=== PATIENT | female | born 1970 | race Caucasian/White ===

== ENCOUNTER 2016-06-14 21:09 | Observation (INO) | payer SELFPAY ==
[~2016-06-14] VITALS: Ht 165.1 cm; Wt 105.0 kg
[~2016-06-14 21:09] MED LIST: ALBU17I INH; ASPI-94 PO; BUME1TAB PO; IRON325T; LANTINJ SC; LISI2.5T3 PO; METF1000 PO; METO25 PO; POTA-243 PO; PRAV40TA2 PO; ROSU40 PO; [UNRECOGNIZED DRUG - OTHER]
[2016-06-14 21:11] VITALS: BP 230/94; PULSE 74; RESP 16; TEMP 98.2; O2SAT 100
[2016-06-14 22:42] VITALS: BP 216/85; PULSE 76; RESP 18; O2SAT 100
[2016-06-14] MEDS ORDERED: ASPIRIN 81 MG CHEW TAB PO ONE (23:00)
[2016-06-14] MEDS: LABETALOL HCL 100 MG/20 ML VIAL IV PUSH ONE ×2 (23:00→23:08)
[2016-06-14] MEDS ORDERED: SODIUM CHLORIDE 0.9% FLUSH 5 ML FLUSH IVF PRN (23:00)
[2016-06-14] MEDS ORDERED: MECLIZINE HCL 25 MG TAB PO ONE (23:00)
[2016-06-14 23:09] VITALS: BP 155/65; PULSE 70; RESP 18; O2SAT 98
[2016-06-14 23:13] VITALS: BP 169/79; PULSE 71; RESP 18; O2SAT 99
[2016-06-14 23:20] LABS: AUTOMATED NEUTROPHIL # 12.9 TH/MM3 (1.8-7.7); BASOPHIL % 0.2 % (0.0-2.0); EOSINOPHIL % 0.2 % (0.0-4.0); HEMATOCRIT 36.6 % (35.0-46.0); HEMO FLAGS DIFF FINAL; LYMPH % 17.3 % (9.0-44.0); LYMPHOCYTE # 2.9 TH/MM3 (1.0-4.8); MEAN CORPUSCULAR HEMOGLOBIN 28.3 PG (27.0-34.0); MEAN CORPUSCULAR HGB CONC 33.7 % (32.0-36.0); MONO % 6.3 % (0.0-8.0); PLATELET COUNT 379 TH/MM3 (150-450); RED BLOOD COUNT 4.36 MIL/MM3 (4.00-5.30); RED CELL DISTRIBUTION WIDTH 13.7 % (11.6-17.2)
[2016-06-14] MEDS ORDERED: METO25TA3 PO (23:29)
[2016-06-14] MEDS ORDERED: LISI2.5T3 PO (23:29)
[2016-06-14] MEDS ORDERED: JANU50TA8 PO (23:29)
[2016-06-14] MEDS ORDERED: PRAV40TA2 PO (23:29)
[2016-06-14] MEDS ORDERED: GLIP5TAB8 PO (23:29)
[2016-06-14] MEDS ORDERED: ASPI81CH CHEW (23:29)
[2016-06-14] MEDS ORDERED: ASPI325T PO (23:29)
--- NOTE | 2016-06-14 23:29 | RADRPT ---
EXAM DATE/TIME: 06/14/2016 23:04 [facility] COMPARISON: CHEST SINGLE AP, November 02, 2013, 19:14. INDICATIONS : Chest Pain, Rapid heart beat MEDICAL HISTORY : CardioMyopathy SURGICAL HISTORY : CABG. ENCOUNTER: Initial ACUITY: 1 day PAIN SCORE: 2/10 LOCATION: Bilateral chest FINDINGS: PA and lateral views of the chest demonstrate the lungs to be symmetrically aerated without evidence of mass, infiltrate or effusion. The cardiomediastinal contours are unremarkable. Osseous structure s are intact. Patient has had previous median sternotomy and CABG. CONCLUSION: No evidence of acute cardiopulmonary disease. Aleksander Lynch MD on June 14, 2016 at 23:27 Board Certified Radiologist. This report was verified electronically.
[2016-06-14] MEDS ORDERED: VENL100T PO (23:30)
[2016-06-14] MEDS ORDERED: LURA80 PO (23:30)
[2016-06-14 23:33] LABS: APTT (PATIENT) 27.8 SEC (24.3-30.1); INTERNATIONAL NORMALIZED RATIO 0.9 RATIO; PROTHROMBIN TIME - PATIENT 10.1 SEC (9.8-11.6)
[2016-06-14 23:41] LABS: ALKALINE PHOSPHATASE 91 U/L (45-117); CREATINE KINASE 118 U/L (26-192); TOTAL BILIRUBIN ADULT 0.6 MG/DL (0.2-1.0)
--- NOTE | 2016-06-14 23:41 | RADRPT ---
EXAM DATE/TIME: 06/14/2016 23:18 [facility] COMPARISON: No previous studies available for comparison. INDICATIONS : Dizziness. RADIATION DOSE: 43.58 CTDIvol (mGy) MEDICAL HISTORY : Hypertension. Myocardial infarction. Congestive heart failure. Coronary artery disease. SURGICAL HISTORY : CABG Tubal ligation. ENCOUNTER: Initial ACUITY: 2 days PAIN SCALE: 0/10 LOCATION: cranial TECHNIQUE: Multiple contiguous axial images were obtained of the head. Using automated exposure control and adj ustment of the mA and/or kV according to patient size, radiation dose was kept as low as reasonably a chievable to obtain optimal diagnostic quality images. FINDINGS: CEREBRUM: The ventricles are normal for age. No evidence of midline shift, mass lesion, hemorrhage or acute in farction. No extra-axial fluid collections are seen. POSTERIOR FOSSA: The cerebellum and brainstem are intact. The 4th ventricle is midline. The cerebellopontine angle i s unremarkable. EXTRACRANIAL: The visualized portion of the orbits is intact. SKULL: The calvaria is intact. No evidence of skull fracture. CONCLUSION: Negative noncontrast head CT. Aleksander Lynch MD on June 14, 2016 at 23:39 Board Certified Radiologist. This report was verified electronically.
[2016-06-14 23:49] LABS: ALT (GPT) 27 U/L (10-53); ANION GAP 12 MEQ/L (5-15); AST (GOT) 20 U/L (15-37); BICARBONATE 25.6 MEQ/L (21.0-32.0); BLOOD UREA NITROGEN 13 MG/DL (7-18); CHLORIDE 88 MEQ/L (98-107); GLOMERULAR FILTRATION RATE 56 ML/MIN (>89); MAGNESIUM 1.7 MG/DL (1.5-2.5); SODIUM (NA) 126 MEQ/L (136-145)
[2016-06-14 23:53] LABS: CKMB 1.6 NG/ML (0.5-3.6)
[2016-06-15] VITALS (7 sets, daily range): BP systolic 112–151; BP diastolic 61–76; PULSE 71–89; RESP 16–20; TEMP 98–98.4; O2SAT 97–100
[2016-06-15 01:25] LABS: BACTERIA, URINE RARE /hpf; BLOOD, URINE NEG (NEG); COMMENT (UR) CULT NOT INDICATED; CULTURE IF INDICATED CULT NOT INDICATED; GLUCOSE,URINE 1000 mg/dL (NEG); KETONE, URINE NEG (NEG); NITRITE,URINE NEG (NEG); PH, URINE 5.5 (5.0-8.5); SQUAMOUS EPITHELIAL CELL URINE 4 /hpf (0-5); URINE COLOR COLORLESS (YELLW/STRAW)
--- NOTE | 2016-06-15 01:43 | PD ---
HPI Chief Complaint: Chest Pain Time Seen by Provider: 22:32 Travel History International Travel<30 days: No Contact w/Intl Traveler<30days: No Traveled to known affect area: No History of Present Illness HPI Patient is a 46 year old female with extensive cardiac history, who comes in complaining of chest pain that radiates to her jaw. She also says she has had a few days of dizziness when she stands up. She says this is how she felt when she had a UT in the past. She says the pain goes across her chest and up to her jaw and down her left arm. She has had some SOB with this. She denies nausea or vomiting. She denies fever or chills. PFSH Past Medical History Arthritis: Yes ("in my back") Blood Disorders: No Anxiety: Yes Depression: No Heart Rhythm Problems: No Cancer: No Cardiac Catheterization: Yes Cardiovascular Problems: Yes (UT, CABGX3, HTN) High Cholesterol: Yes Chest Pain: Yes Congestive Heart Failure: Yes Cerebrovascular Accident: No Coronary Artery Disease: Yes Diabetes: Yes Patient Takes Glucophage: Yes (GENUMET 06/14/161999) Diminished Hearing: No Endocrine: Yes Gastrointestinal Disorders: Yes GERD: Yes Genitourinary: Yes Headaches: Yes Hiatal Hernia: No Hypertension: Yes Immune Disorder: No Implanted Vascular Access Dvce: Yes Kidney Stones: Yes (2000) Musculoskeletal: Yes Neurologic: No Psychiatric: Yes (PTSD) Reproductive: No Respiratory: Yes (C PAP) Migraines: No Myocardial Infarction: Yes Thyroid Disease: No Triglycerides - High: Yes Ulcer: No Tetanus Vaccination: > 5 Years ?: Not LMP: 06/04/16 Tubal Ligation: Yes (1991) Past Surgical History Body Medical Devices: "STENT IN MY HEART" Cardiac Surgery: Yes (two heart caths) Coronary Artery Bypass Graft: Yes (CABG X 3 IN 2013) Eye Surgery: Yes (LASER SURGERY ON EYES) Family History Family Myocardial Infarction: Yes Social History Alcohol Use: Yes (RARE) Tobacco Use: No (QUIT APR 2013) Substance Use: No Allergies-Medications (Allergen,Severity, Reaction): Coded Allergies: Lexapro (Verified Allergy, Severe, 06/14/16) pt " states it makes me rip my skin out" Morphine (Verified Allergy, Severe, "MAKES ME WANT TO RIP MY SKIN OFF", 03/20) Phenergan (Verified Allergy, Severe, "MAKES ME WANT TO RIP MY SKIN OFF", ) Reported Meds & Prescriptions Reported Meds & Active Scripts Active Reported Effexor (Venlafaxine HCl) 100 Mg Tab 225 Mg PO DAILY Latuda (Lurasidone) 80 Mg Tab 80 Mg PO HS Glipizide 5 Mg Tab 5 Mg PO BIDAC Take 30 minutes before a meal Janumet (Sitagliptin-Metformin) 50-1,000 Mg Tab 1 Tab PO BID Pravastatin 40 Mg Tab 40 Mg PO HS Metoprolol Tartrate 25 Mg Tab 25 Mg PO BID Lisinopril 2.5 Mg Tab 2.5 Mg PO DAILY Aspirin 325 Mg Tab 325 Mg PO DAILY Aspirin 81 Mg Chew 324 Mg CHEW DAILY Review of Systems Except as stated in HPI: all other systems reviewed are Neg General / Constitutional: No: Fever, Chills Eyes: No: Blurred Vision HENT: Positive: Vertigo, Lightheadedness Cardiovascular: Positive: Chest Pain or Discomfort Respiratory: Positive: Shortness of Breath Gastrointestinal: No: Nausea, Vomiting Musculoskeletal: No: Edema, Pain Skin: No Rash, No Change in Pigmentation Neurologic: Positive: Dizziness Physical Exam Narrative GENERAL: Awake and alert, in no acute distress SKIN: Warm and dry. HEAD: Atraumatic. Normocephalic. EYES: Pupils equal and round. No scleral icterus. EOMI. horizontal, extinguishing nystagmus. ENT: Mucous membranes pink and moist. NECK: Trachea midline. No JVD. CARDIOVASCULAR: Regular rate and rhythm. No murmur appreciated. RESPIRATORY: No accessory muscle use. Clear to auscultation. Breath sounds equal bilaterally. GASTROINTESTINAL: Abdomen soft, non-tender, nondistended. MUSCULOSKELETAL: No obvious deformities. No clubbing. No cyanosis. No edema. NEUROLOGICAL: Awake and alert. No obvious cranial nerve deficits. Motor grossly within normal limits. Normal speech. Normal [id number] testing. PSYCHIATRIC: Appropriate mood and affect; insight and judgment normal. Data Data Last Documented VS Vital Signs Date Time Temp Pulse Resp B/P Pulse Ox O2 Delivery O2 Flow Rate FiO2 06/15/16 01:00 71 18 143/68 99 Room Air 06/14/16 21:11 Orders B-Type Natriuretic Peptide (06/14/16 22:46) Ckmb (Isoenzyme) Profile (06/14/16 22:46) Complete Blood Count With Diff (06/14/16 22:46) Comprehensive Metabolic Panel (06/14/16 22:46) Magnesium (Mg) (06/14/16 22:46) Prothrombin Time / Inr (Pt) (06/14/16 22:46) Act Partial Throm Time (Ptt) (06/14/16 22:46) Troponin I (06/14/16 22:46) Ecg Monitoring (06/14/16 22:46) Bilateral Bp Monitoring (06/14/16 22:46) Iv Access Insert/Monitor (06/14/16 22:46) Oximetry (06/14/16 22:46) Aspirin Chew (Aspirin Chew) (06/14/16 23:00) Sodium Chloride 0.9% Flush (Ns Flush) (06/14/16 23:00) Chest, Pa & Lat (06/14/16 22:46) Ct Brain W/O Iv Contrast(Rout) (06/14/16 ) Meclizine (Antivert) (06/14/16 23:00) Labetalol Inj (Trandate Inj) (06/14/16 23:00) Ed Urine Pregnancytest Poc (06/14/16 22:48) CKMB (06/14/16 23:01) CKMB% (06/14/16 23:01) Urinalysis - C+S If Indicated (06/15/16 00:53) Activity Bed Rest With Brp (06/15/16 01:43) Vital Signs (Adult) Q4H (06/15/16 01:43) Cardiac Rhythm .As Directed (06/15/16 01:43) ^ Notify Dr: Other .PRN (06/15/16 01:43) ^ Notify Dr. Parameters (06/15/16 01:43) Resp Oxygen Nasal Cannula (06/15/16 ) Diet Heart Healthy (06/15/16 Breakfast) Ckmb (Isoenzyme) Profile (06/15/16 02:01) Ckmb (Isoenzyme) Profile (06/15/16 05:01) Troponin I (06/15/16 02:01) Troponin I (06/15/16 05:01) Electrocardiogram (06/15/16 02:01) Electrocardiogram (06/15/16 05:01) ^ Obtain (06/15/16 01:43) Sodium Chloride 0.9% Flush (Ns Flush) (06/15/16 01:45) Sodium Chloride 0.9% Flush (Ns Flush) (06/15/16 09:00) Medical Lead / Telemetry HANNA.Q8H (06/15/16 01:43) Admit Order (Ed Use Only) (06/15/16 ) CKMB (06/15/16 03:25) CKMB% (06/15/16 03:25) Labs Laboratory Tests Test 06/14/16 06/15/16 23:01 01:10 White Blood Count 17.0 TH/MM3 Red Blood Count 4.36 MIL/MM3 Hemoglobin 12.3 GM/DL Hematocrit 36.6 % Mean Corpuscular Volume 84.0 FL Mean Corpuscular Hemoglobin 28.3 PG Mean Corpuscular Hemoglobin 33.7 % Concent Red Cell Distribution Width 13.7 % Platelet Count 379 TH/MM3 Mean Platelet Volume 9.7 FL Neutrophils (%) (Auto) 76.0 % Lymphocytes (%) (Auto) 17.3 % Monocytes (%) (Auto) 6.3 % Eosinophils (%) (Auto) 0.2 % Basophils (%) (Auto) 0.2 % Neutrophils # (Auto) 12.9 TH/MM3 Lymphocytes # (Auto) 2.9 TH/MM3 Monocytes # (Auto) 1.1 TH/MM3 Eosinophils # (Auto) 0.0 TH/MM3 Basophils # (Auto) 0.0 TH/MM3 CBC Comment DIFF FINAL Differential Comment Prothrombin Time 10.1 SEC Prothromb Time International 0.9 RATIO Ratio Activated Partial 27.8 SEC Thromboplast Time Sodium Level 126 MEQ/L Potassium Level 4.0 MEQ/L Chloride Level 88 MEQ/L Carbon Dioxide Level 25.6 MEQ/L Anion Gap 12 MEQ/L Blood Urea Nitrogen 13 MG/DL Creatinine 1.05 MG/DL Estimat Glomerular Filtration 56 ML/MIN Rate Random Glucose 259 MG/DL Calcium Level 9.0 MG/DL Magnesium Level 1.7 MG/DL Total Bilirubin 0.6 MG/DL Aspartate Amino Transf 20 U/L (AST/SGOT) Alanine Aminotransferase 27 U/L (ALT/SGPT) Alkaline Phosphatase 91 U/L Total Creatine Kinase 118 U/L Creatine Kinase MB 1.6 NG/ML Troponin I LESS THAN 0.02 NG/ML B-Type Natriuretic Peptide 89 PG/ML Total Protein 8.1 GM/DL Albumin 3.6 GM/DL Urine Color COLORLESS Urine Turbidity HAZY Urine pH 5.5 Urine Specific [place] 1.006 Urine Protein TRACE mg/dL Urine Glucose (UA) 1000 mg/dL Urine Ketones NEG mg/dL Urine Occult Blood NEG Urine Nitrite NEG Urine Bilirubin NEG Urine Urobilinogen LESS THAN 2.0 MG/DL Urine Leukocyte Esterase SMALL Urine RBC 1 /hpf Urine WBC 3 /hpf Urine Squamous Epithelial 4 /hpf Cells Urine Bacteria RARE /hpf Microscopic Urinalysis Comment CULT NOT INDICATED MDM Medical Decision Making Medical Screen Exam Complete: Yes Emergency Medical Condition: Yes Medical Record Reviewed: Yes Interpretation(s) ECG shows NSR, no ST elevation or depression. Differential Diagnosis ACS vs NSTEMI vs STEMI vs vertigo Narrative Course Patient is a 46 year old female who comes in complaining of chest pain along with dizziness. Exam shows no neurologic abnormalities. ECG shows no signs of ischemia. IV established, patient connected to the classroom monitor. Labs sent show no acute abnormalities. WBC count is elevated to 17, however patient is not having infectious symptoms currently. Patient given Aspirin. CXR shows no signs of pneumonia. Patient given Meclizine with improvement of her dizziness. Placed in chest pain center for further management. Diagnosis Primary Impression: Chest pain Qualified Code: R07.9 - Chest pain, unspecified type Admitting Information Admitting Physician Requests: Mitra Louis MD Jun 15, 2016 01:43
[2016-06-15] MEDS ORDERED: SODIUM CHLORIDE 0.9% FLUSH 5 ML FLUSH IVF PRN (01:45)
[2016-06-15 02:57] LABS: CREATINE KINASE 94 U/L (26-192)
[2016-06-15 04:05] LABS: CREATINE KINASE 102 U/L (26-192)
[2016-06-15 04:25] LABS: CKMB 1.2 NG/ML (0.5-3.6)
[2016-06-15] MEDS ORDERED: ACETAMINOPHEN 325 MG TAB PO ONE (05:00)
[2016-06-15] MEDS ORDERED: METOPROLOL TARTRATE 25 MG TAB PO SCH (09:00)
[2016-06-15] MEDS ORDERED: SODIUM CHLORIDE 0.9% FLUSH 5 ML FLUSH IVF SCH (09:00)
[2016-06-15] MEDS ORDERED: LISINOPRIL 5 MG TAB PO SCH (09:00)
[2016-06-15] MEDS ORDERED: NON-FORMULARY DRUG (Sitagliptin-Metformin (Janumet) 1 TAB) PO SCH (09:00)
[2016-06-15] MEDS ORDERED: glipiZIDE 5 MG TAB PO SCH (09:00)
[2016-06-15] MEDS ORDERED: VENLAFAXINE HCL XR 75 MG CAP PO SCH (09:15)
[2016-06-15] MEDS ORDERED: ONDANSETRON HCL 4 MG/2 ML VIAL IV PRN (09:15)
[2016-06-15] MEDS ORDERED: DEXTROSE 50% IN WATER 50 ML VIAL(D50) IV PUSH PRN (09:15)
[2016-06-15] MEDS ORDERED: PILL SPLITTER OTHER PRN (09:15)
[2016-06-15] MEDS ORDERED: NITROGLYCERIN 0.4 MG SL 25 TABS/BTL SL PRN (09:15)
[2016-06-15] MEDS ORDERED: GLUCAGON 1 MG/ML VIAL OTHER PRN (09:15)
[2016-06-15] MEDS ORDERED: metFORMIN HCL 500 MG TAB PO SCH (09:30)
[2016-06-15] MEDS ORDERED: ASPIRIN 325 MG TAB PO SCH (09:30)
[2016-06-15] MEDS ORDERED: PANTOPRAZOLE SOD 40 MG DELAYED RELEASE TAB PO SCH (09:30)
[2016-06-15] MEDS ORDERED: INSULIN ASPART SUPPLEMENTAL SCALE SQ SCH (11:00)
[2016-06-15] MEDS ORDERED: REGADENOSON INJ 0.4 MG/5 ML SYR ONE (11:05)
--- NOTE | 2016-06-15 11:45 | HHI.HP ---
HPI Primary Care Physician Diane Rodriguez DO Chief Complaint Chest Pain History of Present Illness 46-year-old female with CABG 3 in 2013, hypertension, diabetes, and hyperlipidemia. Presents with onset of indigestion 2 days ago accompanied with dizziness. Also has complaints of intermittent stabbing in left anterior chest described as quick pains lasting "only seconds." Severity of stabbing pains 3/ 10. It does not hurt to take a deep breath. Intermittent nausea over the past 2 days, she relates to her diabetes. No vomiting, SOB, or diaphoresis. She has taken Tums around the clock for the past 2 days without relief. Has not tried any other [id number] anti-reflux medications. Prior to open heart surgery her only symptom was indigestion, never had chest discomfort. She has not followed with a court of appeals judge in over one year. Follows with primary care provider, however has not physically seen him in over a year. Due to lack of insurance and inability to pay. Review of Systems General: No fatigue,weakness, fever, chills, recent travel, or recent illness change in appetite. [place] as though she was getting the flu last week however flu symptoms lasted only 1 day. HEENT: No CONNELLY, no nasal congestion or drainage, no dysphasia. Reports diabetic retinopathy. CV: No CP, pressure, palpitations, or intermittent leg pain. Intermittent dizziness for "some time." RESP: No SOB, cough, wheeze, hemoptysis GI: Constant indigestion for the past 2 days, unrelieved with antacids. Slight nausea for the past 2 days. No bowel changes, diarrhea, constipation, pain, distention, melena, blood in the stool. No change in appetite, no unintentional weight gain or weight loss. : No dysuria, urgency, frequency, hematuria, or history of kidney stones EXT: No lower leg edema, no parathesias MS: No discomfort or change in ROM NEURO: No change in memory, report difficulty with balance due to diabetic neuropathy and left leg worse than right. No LOC, motor/sensory deficits PSYCH: Reports anxiety and depression that is stable with current medication regimen. SKIN: No rashes, no concerning lesions Past Family Social History Allergies: Coded Allergies: Lexapro (Verified Allergy, Severe, 06/14/16) pt " states it makes me rip my skin out" Morphine (Verified Allergy, Severe, "MAKES ME WANT TO RIP MY SKIN OFF", 03/20) Phenergan (Verified Allergy, Severe, "MAKES ME WANT TO RIP MY SKIN OFF", ) Past Medical History Diabetes RI Hypertension CAD, with 1 cardiac stent GERD Neuropathy Anxiety Depression Past Surgical History CABG 3 (2012) Tubal ligation Reported Medications Reported Effexor (Venlafaxine HCl) 100 Mg Tab 225 Mg PO DAILY Latuda (Lurasidone) 80 Mg Tab 80 Mg PO HS Glipizide 5 Mg Tab 5 Mg PO BIDAC Take 30 minutes before a meal Janumet (Sitagliptin-Metformin) 50-1,000 Mg Tab 1 Tab PO BID Pravastatin 40 Mg Tab 40 Mg PO HS Metoprolol Tartrate 25 Mg Tab 25 Mg PO BID Lisinopril 2.5 Mg Tab 2.5 Mg PO DAILY Aspirin 325 Mg Tab 325 Mg PO DAILY Active Ordered Medications Current Medications Medications (Trade) Dose Ordered Sig/Jonas Route Start Time Stop Time Status Last Admin (Glucotrol) 5 mg BIDAC PO 06/15/16 09:00 (Prinivil) 2.5 mg DAILY PO 06/15/16 09:00 (Latuda) 80 mg HS PO 06/15/16 21:00 (Lopressor) 25 mg BID PO 06/15/16 09:00 (Pravachol) 40 mg HS PO 06/15/16 21:00 (Effexor Xr) 225 mg DAILY PO 06/15/16 09:15 (D50w (Vial) Inj) 25 ml UNSCH PRN IV PUSH 06/15/16 09:15 (Glucagon Inj) 1 mg UNSCH PRN OTHER 06/15/16 09:15 (Zofran Inj) 4 mg Q6H PRN IV 06/15/16 09:15 (Protonix) 40 mg DAILY PO 06/15/16 09:30 (Nitrostat Sl) 0.4 mg Q5M PRN SL 06/15/16 09:15 (Aspirin) 325 mg DAILY PO 06/15/16 09:30 (Pill Splitter) 1 ea UNSCH PRN OTHER 06/15/16 09:15 (Glucophage) 1,000 mg BIDPC PO 06/15/16 09:30 (Januvia) 50 mg BIDPC PO 06/15/16 09:30 Social History She quit smoking in 2012. Prior to quitting smoking she smoked a half to 1 pack daily for 20 years. She denies any alcohol or illegal drug use. She has known hypertension, diabetes, hyperlipidemia She is sedentary and states she is unable to be active due to her left leg neuropathy. She is currently unemployed. 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 She is . Her daughter and 3-year -old granddaughter lives with her. Son commitment suicide. Past cardiac testing She has not had any recent contrast testing. In October 2011, she was admitted to the chest pain center and completed a Chandrika scan. Scan was abnormal. She then had a cardiac catheterization with . One stent placed to her first diagonal. April 2013CABG 3. Left internal mammary, LAD, reverse saphenous vein to RCA , reverse saphenous vein graft ramus intermedius. Last documented Chandrika scan completed November 2013, unremarkable study, with an ejection fraction of 63%. Physical Exam Vital Signs Vital Signs Date Time Temp Pulse Resp B/P Pulse Ox O2 Delivery O2 Flow Rate FiO2 06/15/16 09:37 97 21 06/15/16 08:23 98.0 80 18 112/61 97 06/15/16 05:43 98.4 74 20 127/74 97 06/15/16 04:00 89 18 151/74 99 Room Air 06/15/16 02:00 73 18 147/76 100 Room Air 06/15/16 01:00 71 18 143/68 99 Room Air 06/15/16 00:27 71 16 137/63 100 Room Air 06/14/16 23:13 71 18 169/79 99 Room Air 06/14/16 23:09 70 18 155/65 98 Room Air 06/14/16 22:42 76 18 216/85 100 Room Air 06/14/16 22:23 76 18 06/14/16 21:11 74 16 230/94 100 Room Air Physical Exam GENERAL: Alert WN, WD, NAD, pleasant, obese female HEAD: NC, AT EYES: Sclera clear, conjunctiva without injection, pupils equal and round ENT: Mucous membranes pink and moist NECK: Supple, no masses, trachea midline CV: RRR, without murmur, rub, gallop, no JVD, S1-S2 no S3-S4. No femoral bruits. No carotid bruit on left. Carotid bruit on right. RESP: Clear lungs throughout bilateral, no crackles, wheeze, rhonchi, symmetrical chest rise, nonlabored, able to speak in full sentences ABD: Soft, obese, NT, ND, no masses, positive bowel tones EXT: Pulses +24, no dependent edema MS: Normal tone 4 extremities, nontender, no obvious deformities, full range of motion NEURO: CN II through CN XII grossly intact, motor strength 5/5 PSYCH: A+O 3, pleasant affect, appropriate speech, appropriate mood and affect , insight and judgment SKIN: Normal turgor, normal texture, no lesions, no rashes, brisk cap refill Laboratory Laboratory Tests Test 06/14/16 06/15/16 06/15/16 06/15/16 23:01 01:10 02:15 03:25 White Blood Count 17.0 Red Blood Count 4.36 Hemoglobin 12.3 Hematocrit 36.6 Mean Corpuscular Volume 84.0 Mean Corpuscular Hemoglobin 28.3 Mean Corpuscular Hemoglobin 33.7 Concent Red Cell Distribution Width 13.7 Platelet Count 379 Mean Platelet Volume 9.7 Neutrophils (%) (Auto) 76.0 Lymphocytes (%) (Auto) 17.3 Monocytes (%) (Auto) 6.3 Eosinophils (%) (Auto) 0.2 Basophils (%) (Auto) 0.2 Neutrophils # (Auto) 12.9 Lymphocytes # (Auto) 2.9 Monocytes # (Auto) 1.1 Eosinophils # (Auto) 0.0 Basophils # (Auto) 0.0 CBC Comment DIFF FINAL Differential Comment Prothrombin Time 10.1 Prothromb Time International 0.9 Ratio Activated Partial 27.8 Thromboplast Time Sodium Level 126 Potassium Level 4.0 Chloride Level 88 Carbon Dioxide Level 25.6 Anion Gap 12 Blood Urea Nitrogen 13 Creatinine 1.05 Estimat Glomerular Filtration 56 Rate Random Glucose 259 Calcium Level 9.0 Magnesium Level 1.7 Total Bilirubin 0.6 Aspartate Amino Transf 20 (AST/SGOT) Alanine Aminotransferase 27 (ALT/SGPT) Alkaline Phosphatase 91 Total Creatine Kinase 118 94 102 Creatine Kinase MB 1.6 1.2 Troponin I LESS THAN 0.02 LESS THAN 0.02 LESS THAN 0.02 B-Type Natriuretic Peptide 89 Total Protein 8.1 Albumin 3.6 Urine Color COLORLESS Urine Turbidity HAZY Urine pH 5.5 Urine Specific [place] 1.006 Urine Protein TRACE Urine Glucose (UA) 1000 Urine Ketones NEG Urine Occult Blood NEG Urine Nitrite NEG Urine Bilirubin NEG Urine Urobilinogen LESS THAN 2.0 Urine Leukocyte Esterase SMALL Urine RBC 1 Urine WBC 3 Urine Squamous Epithelial 4 Cells Urine Bacteria RARE Microscopic Urinalysis Comment CULT NOT INDICATED Result Diagram: 06/14/16 2301 06/14/16 2301 Imaging Last Impressions Myocardial Perfusion Scan Nuc Med 06/15/16 0000 Signed Impressions: Service Date/Time: Wednesday, June 15, 2016 10:25 - CONCLUSION: Unremarkable myocardial perfusion examination. No significant change compared to the prior study. RISK CATEGORY: Low Mejia Pfeiffer MD Chest X-Ray 06/14/16 2246 Signed Impressions: Service Date/Time: Tuesday, June 14, 2016 23:04 - CONCLUSION: No evidence of acute cardiopulmonary disease. Aleksander Lynch MD Head CT 06/14/16 0000 Signed Impressions: Service Date/Time: Tuesday, June 14, 2016 23:18 - CONCLUSION: Negative noncontrast head CT. Aleksander Lynch MD Course EKGs 3 EKG has shown normal sinus rhythm, with no ST segment changes to suggest ischemia, T-wave inversion anteriorly. Assessment and Plan Assessment and Plan #1 Chest pain-patient admitted to chest pain center. Ruled out with 3 sets of EKGs, cardiac enzymes, and monitored overnight. She was seen and evaluated by Dr. Tristen Gary. Patient had a chemical stress test which was unremarkable. Results discussed with patient in length. She will be discharged this afternoon. Encouraged to keep follow-up appointment with [facility] for preventative medical care. #2 Diabetesshe has been counseled and instructed on importance of tight blood sugar control. Case management has been involved and has provided her with a blue card. Encouraged to increase her daily activity and weight loss. #3 Hypertensionpatient was initially hypertensive in ER however has been normotensive throughout the day. No changes patient regimen at this time. #4 Hyponatremiapatient is hyponatremic for over one year and her primary care provider has been unable to tell her why she is patient is asymptomatic again have encouraged her to follow-up with [facility]. Catie Ruiz Jun 15, 2016 11:44
--- NOTE | 2016-06-15 12:24 | RADRPT ---
EXAM DATE/TIME: 06/15/2016 10:25 [facility] COMPARISON: MYOCARDIAL PERF PHARM SPECT, GATED W/EF, November 03, 2013, 9:49. INDICATIONS : Chest pain radiating to her jaw for 2 days. Myocardial in farction, cogestive heart failure and coron katie artery disease. Angina. Coronary artery bypass graft. DOSE: 35.0 mCi Tc99m Myoview at stress. 11.0 mCi Tc99m Myoview at rest. 0.4 mg Lexiscan STRESS SYMPTOMS: Nausea, vomiting, headache and stomach pain. EJECTION FRACTION: 59% MEDICAL HISTORY : Hypertension. Smoking history. SURGICAL HISTORY : Tubal ligation. ENCOUNTER: Initial ACUITY: 2 days PAIN SCALE: 2/10 LOCATION: Bilateral chest TECHNIQUE: The patient underwent pharmacologic stress with infusion of prescribed dose. Continuous ECG tracing was monitored during stress. Gated SPECT imaging was performed after stress and conventional SPECT i maging was performed at rest. The examination was performed on a SPECT/CT scanner, both attenuation and non-corrected datasets were reviewed. FINDINGS: DISTRIBUTION: The maximum perfused segment at stress is in the apical wall. PERFUSION STUDY: The pattern of perfusion at stress is within normal limits. GATED STUDY: There is intact wall motion and thickening without hypokinetic or dyskinetic segments. CONCLUSION: Unremarkable myocardial perfusion examination. No significant change compared to the prior study. RISK CATEGORY: Low Mejia Pfeiffer MD on June 15, 2016 at 12:21 Board Certified Radiologist. This report was verified electronically.
--- NOTE | 2016-06-15 12:45 | HHI.DCPOC ---
Discharge Care Plan Diagnosis: (1) Atypical chest pain (2) GERD (gastroesophageal reflux disease) (3) Type 2 diabetes mellitus (4) Obesity (5) CAD (coronary artery disease) Goals to Promote Your Health * To prevent worsening of your condition and complications * To maintain your health at the optimal level Directions to Meet Your Goals Take your medications as prescribed Follow your dietary instruction Follow activity as directed Keep your appointments as scheduled Take your immunizations and boosters as scheduled If your symptoms worsen call your PCP, if no PCP go to Urgent Care Center or Emergency Room Smoking is Dangerous to Your Health. Avoid second hand smoke Call the 24-hour hour crisis hotline for domestic abuse at Catie Ruiz Jun 15, 2016 12:45
[2016-06-15] MEDS ORDERED: PRIL20CA9 PO (12:51)
--- NOTE | 2016-06-15 14:39 | EKG ---
Date Performed: 06/15/2016 Time Performed: 04:44:33 PTAGE: 46 years EKG: Sinus rhythm NORMAL ECG PREVIOUS TRACING : 06/15/2016 02.10 Compared to previous tracing T wave changes V1 through V3 h ave improved. DOCTOR: Tristen Gary Interpretating Date/Time 06/15/2016 14:38:02
--- NOTE | 2016-06-15 14:40 | EKG ---
Date Performed: 06/15/2016 Time Performed: 02:10:21 PTAGE: 46 years EKG: Sinus rhythm Nonspecific ST changes ABNORMAL ECG PREVIOUS TRACING : 06/14/2016 22.18 Since previous tracing, no significant change noted DOCTOR: Tristen Gary Interpretating Date/Time 06/15/2016 14:39:13
--- NOTE | 2016-06-15 14:43 | EKG ---
Date Performed: 06/14/2016 Time Performed: 22:18:31 PTAGE: 46 years EKG: Sinus rhythm NORMAL ECG PREVIOUS TRACING : 11/03/2013 01.39 Compared to previous tracing, T wave changes have resolved. DOCTOR: Tristen Gary Interpretating Date/Time 06/15/2016 14:41:28
[2016-06-15] MEDS ORDERED: PRAVASTATIN SOD 40 MG TAB PO SCH (21:00)
[2016-06-15] MEDS ORDERED: LURASIDONE 80 MG TAB PO SCH (21:00)
--- NOTE | 2016-06-16 15:46 | TR ---
Date Performed: 06/15/2016 Time Performed: 11:07:02 DOCTOR: Shun Paredes DRUG LIST: ASA CATAPRES [id number] METAPROLOL CLINICAL HISTORY: HTN CABG DIABETES CHEST PAIN CHEST PAIN REASON FOR TEST: REASON FOR ENDING: OBSERVATION: CONCLUSION: Lexiscan stress test was performed under standard four minute protocol. Radionuclid e was injected one minute prior to ending the test. No electrocardiographic abormalities were present to suggest ischemia. Nuclear imaging and interpretation are pending. COMMENTS:
== END 2016-06-15 16:34 | disposition home or self-care (01) ==
LOC: NEPC 21:09 → NEDA 06-15 01:49 → NEPHCDU 06-15 05:23
DX: R07.9 Chest pain, unspecified (principal); I25.10 Atherosclerotic heart disease of native coronary artery without angina pectoris; I10 Essential (primary) hypertension; E87.1 Hypo-osmolality and hyponatremia; I25.2 Old myocardial infarction; K21.9 Gastro-esophageal reflux disease without esophagitis; E11.9 Type 2 diabetes mellitus without complications; E78.5 Hyperlipidemia, unspecified; R94.31 Abnormal electrocardiogram [ECG] [EKG]; F43.10 Post-traumatic stress disorder, unspecified; E78.00 Pure hypercholesterolemia, unspecified; G57.92 Unspecified mononeuropathy of left lower limb; Z95.1 Presence of aortocoronary bypass graft; Z95.5 Presence of coronary angioplasty implant and graft; Z87.442 Personal history of urinary calculi; Z87.891 Personal history of nicotine dependence
CPT/HCPCS: 70450; 71020; 78452; 80053; 81001; 82550; 82552; 83735; 83880; 84484; 84703; 85025; 85610; 85730; 93005; 93017; 99285; A9502; G0378; J2785

== ENCOUNTER 2016-11-23 19:52 | Observation (INO) | payer SELFPAY ==
[~2016-11-23] VITALS: Ht 167.6 cm; Wt 99.0 kg
[~2016-11-23 19:52] MED LIST changes: -ALBU17I INH; -ASPI-94 PO; +ASPI325T PO; +ASPI81CH CHEW; -BUME1TAB PO; +GLIP5TAB8 PO; -IRON325T; +JANU50TA8 PO; -LANTINJ SC; +LURA80 PO; -METF1000 PO; -METO25 PO; +METO25TA3 PO; -POTA-243 PO; +PRIL20CA9 PO; -ROSU40 PO; +VENL100T PO; -[UNRECOGNIZED DRUG - OTHER]
[2016-11-23 19:57] VITALS: BP 159/85; PULSE 92; RESP 16; TEMP 97.9; O2SAT 99
--- NOTE | 2016-11-23 22:29 | PD ---
HPI Chief Complaint: GI Complaint Time Seen by Provider: 22:25 Travel History International Travel<30 days: No Contact w/Intl Traveler<30days: No Traveled to known affect area: No History of Present Illness HPI 46-year-old female that presents to the ED for evaluation of chest pain. Per patient she has a history of open-heart surgery years ago. She follows with no wage and hour investigator at this time. She does state that she has a history of diabetes, high cholesterol, hypertension and takes medications for all this. Per patient she did not took an aspirin today. Per patient since yesterday she's been developing chest discomfort. Per patient he comes and goes. Per patient he wasn't sure if he was epigastric in nature and she took some Tums with minimal relief. Per patient she has no nausea or vomiting. Chest pain is not constant but pressure-like. Sharp. She denies any recent injury. Denies nose or congestion. No cough. No fevers chills or sweats. No recent travel. No control. Pain per patient is 6 out of 10. Stays mainly on the left chest. PFSH Past Medical History Arthritis: Yes ("in my back") Blood Disorders: No Anxiety: Yes Depression: No Heart Rhythm Problems: No Cancer: No Cardiac Catheterization: Yes Cardiovascular Problems: Yes ([place], CABGX3, HTN) High Cholesterol: Yes Chest Pain: Yes Congestive Heart Failure: Yes Cerebrovascular Accident: No Coronary Artery Disease: Yes Diabetes: Yes Diminished Hearing: No Endocrine: Yes Gastrointestinal Disorders: Yes GERD: Yes Genitourinary: Yes Headaches: Yes Hiatal Hernia: No Hypertension: Yes Immune Disorder: No Implanted Vascular Access Dvce: Yes Kidney Stones: Yes (2000) Musculoskeletal: Yes Neurologic: No Psychiatric: Yes (PTSD) Reproductive: No Respiratory: Yes (C PAP) Migraines: No Myocardial Infarction: Yes Thyroid Disease: No Triglycerides - High: Yes Ulcer: No Tubal Ligation: Yes (1991) Past Surgical History Body Medical Devices: "STENT IN MY HEART" Cardiac Surgery: Yes (two heart caths) Coronary Artery Bypass Graft: Yes (CABG X 3 IN 2013) Eye Surgery: Yes (LASER SURGERY ON EYES) Social History Alcohol Use: Yes (RARE) Tobacco Use: No (QUIT APR 2013) Substance Use: No Allergies-Medications (Allergen,Severity, Reaction): Coded Allergies: Lexapro (Verified Allergy, Severe, 06/14/16) pt " states it makes me rip my skin out" Morphine (Verified Allergy, Severe, "MAKES ME WANT TO RIP MY SKIN OFF", 03/20) Phenergan (Verified Allergy, Severe, "MAKES ME WANT TO RIP MY SKIN OFF", ) Reported Meds & Prescriptions Reported Meds & Active Scripts Active Prilosec (Omeprazole) 20 Mg Cap 20 Mg PO DAILY Reported Effexor (Venlafaxine HCl) 100 Mg Tab 225 Mg PO DAILY Latuda (Lurasidone) 80 Mg Tab 80 Mg PO HS Glipizide 5 Mg Tab 5 Mg PO BIDAC Take 30 minutes before a meal Janumet (Sitagliptin-Metformin) 50-1,000 Mg Tab 1 Tab PO BID Pravastatin 40 Mg Tab 40 Mg PO HS Metoprolol Tartrate 25 Mg Tab 25 Mg PO BID Lisinopril 2.5 Mg Tab 2.5 Mg PO DAILY Aspirin 325 Mg Tab 325 Mg PO DAILY Aspirin 81 Mg Chew 324 Mg CHEW DAILY Review of Systems Except as stated in HPI: all other systems reviewed are Neg Physical Exam Narrative GENERAL: SKIN: Warm and dry. She does have a healed surgical scar on the mid chest as well as on the left lower leg. HEAD: Atraumatic. Normocephalic. EYES: Pupils equal and round. No scleral icterus. No injection or drainage. ENT: No nasal bleeding or discharge. Mucous membranes pink and moist. Tongue is midline. No uvula deviation. NECK: Trachea midline. No JVD. CARDIOVASCULAR: Regular rate and rhythm. No murmurs, S3, S4. Chest pain is not reproducible with touch. RESPIRATORY: No accessory muscle use. Clear to auscultation. Breath sounds equal bilaterally. GASTROINTESTINAL: Abdomen soft, non-tender, nondistended. Hepatic and splenic margins not palpable. MUSCULOSKELETAL: Extremities without clubbing, cyanosis, or edema. No obvious deformities. Full range of motion of the upper and lower extremities bilaterally. 2+ pulses bilaterally. NEUROLOGICAL: Awake and alert. No obvious cranial nerve deficits. Motor grossly within normal limits. Five out of 5 muscle strength in the arms and legs. Normal speech. PSYCHIATRIC: Appropriate mood and affect; insight and judgment normal. Data Data Last Documented VS Vital Signs Date Time Temp Pulse Resp B/P Pulse Ox O2 Delivery O2 Flow Rate FiO2 11/23/16 19:57 97.9 92 16 159/85 99 Room Air Orders Electrocardiogram (11/23/16 22:22) Complete Blood Count With Diff (11/23/16 22:22) Comprehensive Metabolic Panel (11/23/16 22:22) Ckmb (Isoenzyme) Profile (11/23/16 22:22) Troponin I (11/23/16 22:22) B-Type Natriuretic Peptide (11/23/16 22:22) Prothrombin Time / Inr (Pt) (11/23/16 22:22) Act Partial Throm Time (Ptt) (11/23/16 22:22) Lipase (11/23/16 22:22) Magnesium (Mg) (11/23/16 22:22) Chest, Single Ap (11/23/16 22:22) Iv Access Insert/Monitor (11/23/16 22:22) Ecg Monitoring (11/23/16 22:22) Oximetry (11/23/16 22:22) Aspirin (Aspirin) (11/23/16 22:30) Nitroglycerin Sl (Nitrostat Sl) (11/23/16 22:30) MDM Medical Decision Making Medical Screen Exam Complete: Yes Emergency Medical Condition: Yes Medical Record Reviewed: Yes Interpretation(s) EKG shows sinus rhythm with no sign of acute ischemia or arrhythmia read by me and attending. Differential Diagnosis Chest pain versus atypical chest pain versus coronary artery disease versus GERD versus gastritis versus ischemia versus ACS Narrative Course 46-year-old female that presents to the ED for evaluation of chest pain. Patient was properly examined and was found to have signs and symptoms concerning for ACS. She does have risk factors including previous history of CABG herself. Labs and imaging were ordered. Initial EKG did not show any sign of ischemia or arrhythmia. Case will be signed out to my attending pending disposition and treatment plan. Geo Chambers Nov 23, 2016 22:29
[2016-11-23] MEDS ORDERED: ASPIRIN 325 MG TAB PO ONE (22:30)
[2016-11-23] MEDS ORDERED: NITROGLYCERIN 0.4 MG SL 25 TABS/BTL SL ONE (22:30)
[2016-11-23] MEDS ORDERED: PRIL20TA2 (22:32)
--- NOTE | 2016-11-23 22:38 | RADRPT ---
EXAM DATE/TIME: 11/23/2016 22:19 [place] COMPARISON: CHEST SINGLE AP, November 02, 2013, 19:14. INDICATIONS : Chest pain MEDICAL HISTORY : Diabetes mellitus type II. Hypertension CardioMyopathy SURGICAL HISTORY : CABG. ENCOUNTER: Initial ACUITY: 1 day PAIN SCORE: 4/10 LOCATION: chest FINDINGS: A single view of the chest demonstrates the lungs to be symmetrically aerated without evidence of mas s, infiltrate or effusion. Status post CABG. The cardiomediastinal contours are unremarkable. [place] us structures are intact. CONCLUSION: No acute disease. Satnam Camacho MD on November 23, 2016 at 22:36 Board Certified Radiologist. This report was verified electronically.
[2016-11-23 23:04] LABS: AUTOMATED NEUTROPHIL # 10.7 TH/MM3 (1.8-7.7); BASOPHIL % 0.2 % (0.0-2.0); EOSINOPHIL % 0.3 % (0.0-4.0); HEMATOCRIT 37.1 % (35.0-46.0); HEMO FLAGS DIFF FINAL; LYMPH % 19.2 % (9.0-44.0); LYMPHOCYTE # 2.8 TH/MM3 (1.0-4.8); MEAN CELL VOLUME 83.9 FL (80.0-100.0); MEAN CORPUSCULAR HEMOGLOBIN 27.6 PG (27.0-34.0); MEAN CORPUSCULAR HGB CONC 32.9 % (32.0-36.0); MONO % 6.6 % (0.0-8.0); NEUT % 73.7 % (16.0-70.0); PLATELET COUNT 329 TH/MM3 (150-450); RED BLOOD COUNT 4.42 MIL/MM3 (4.00-5.30); WHITE BLOOD COUNT 14.5 TH/MM3 (4.0-11.0)
[2016-11-23 23:12] LABS: APTT (PATIENT) 25.3 SEC (24.3-30.1); INTERNATIONAL NORMALIZED RATIO 0.9 RATIO
[2016-11-23 23:20] VITALS: BP 120/60; PULSE 79
[2016-11-23 23:25] VITALS: BP 111/58; PULSE 80; RESP 16; O2SAT 98
[2016-11-23 23:26] LABS: ALT (GPT) 37 U/L (10-53); ANION GAP 13 MEQ/L (5-15); AST (GOT) 24 U/L (15-37); BICARBONATE 26.2 MEQ/L (21.0-32.0); BLOOD UREA NITROGEN 15 MG/DL (7-18); CHLORIDE 95 MEQ/L (98-107); GLOMERULAR FILTRATION RATE 43 ML/MIN (>89); MAGNESIUM 1.7 MG/DL (1.5-2.5); POTASSIUM 4.4 MEQ/L (3.5-5.1); SODIUM (NA) 134 MEQ/L (136-145)
[2016-11-23 23:30] LABS: ALKALINE PHOSPHATASE 94 U/L (45-117); TOTAL BILIRUBIN ADULT 0.4 MG/DL (0.2-1.0)
[2016-11-23 23:45] LABS: CREATINE KINASE 63 U/L (26-192)
[2016-11-24] VITALS (8 sets, daily range): BP systolic 102–164; BP diastolic 49–72; PULSE 83–87; RESP 14–20; TEMP 98.1–98.8; O2SAT 94–100
--- NOTE | 2016-11-24 01:25 | PD ---
Physical Exam Narrative I, Dr. Jhaveri, have reviewed the advance practice practitioner's documentation and am in agreement, met with the patient face to face, made the diagnosis, and the medical decision making was done by me. *My assessment and Findings: ACS vs. pneumonia vs. musculoskeletal pain 46yo F with CAD s/p CABG, HTN, DM here with left sided chest pain since yesterday. States it is intermittent, lasting minutes at a time and sharp. Denies any sob. Labs reviewed, leukocytosis at 14.5. Troponin negative. Glucose is 318. No increased anion gap. CO2 normal. Pt is noninsulin dependent. BNP 71. CXR negative. Abdominal is soft, NT/ND. Will place on insulin sliding scale. Chest pain is atypical. 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 Will admit to chest pain center for serial EKG and cardiac enzymes. Data Data Last Documented VS Vital Signs Date Time Temp Pulse Resp B/P Pulse Ox O2 Delivery O2 Flow Rate FiO2 11/23/16 23:25 80 16 111/58 98 Room Air 11/23/16 19:57 97.9 Orders Electrocardiogram (11/23/16 22:22) Complete Blood Count With Diff (11/23/16 22:22) Comprehensive Metabolic Panel (11/23/16 22:22) Ckmb (Isoenzyme) Profile (11/23/16 22:22) Troponin I (11/23/16 22:22) B-Type Natriuretic Peptide (11/23/16 22:22) Prothrombin Time / Inr (Pt) (11/23/16 22:22) Act Partial Throm Time (Ptt) (11/23/16 22:22) Lipase (11/23/16 22:22) Magnesium (Mg) (11/23/16 22:22) Chest, Single Ap (11/23/16 22:22) Iv Access Insert/Monitor (11/23/16 22:22) Ecg Monitoring (11/23/16 22:22) Oximetry (11/23/16 22:22) Aspirin (Aspirin) (11/23/16 22:30) Nitroglycerin Sl (Nitrostat Sl) (11/23/16 22:30) Admit Order (Ed Use Only) (11/24/16 01:22) Labs Laboratory Tests Test 11/23/16 22:40 White Blood Count 14.5 TH/MM3 Red Blood Count 4.42 MIL/MM3 Hemoglobin 12.2 GM/DL Hematocrit 37.1 % Mean Corpuscular Volume 83.9 FL Mean Corpuscular Hemoglobin 27.6 PG Mean Corpuscular Hemoglobin 32.9 % Concent Red Cell Distribution Width 14.0 % Platelet Count 329 TH/MM3 Mean Platelet Volume 9.7 FL Neutrophils (%) (Auto) 73.7 % Lymphocytes (%) (Auto) 19.2 % Monocytes (%) (Auto) 6.6 % Eosinophils (%) (Auto) 0.3 % Basophils (%) (Auto) 0.2 % Neutrophils # (Auto) 10.7 TH/MM3 Lymphocytes # (Auto) 2.8 TH/MM3 Monocytes # (Auto) 1.0 TH/MM3 Eosinophils # (Auto) 0.0 TH/MM3 Basophils # (Auto) 0.0 TH/MM3 CBC Comment DIFF FINAL Differential Comment Prothrombin Time 10.0 SEC Prothromb Time International 0.9 RATIO Ratio Activated Partial 25.3 SEC Thromboplast Time Sodium Level 134 MEQ/L Potassium Level 4.4 MEQ/L Chloride Level 95 MEQ/L Carbon Dioxide Level 26.2 MEQ/L Anion Gap 13 MEQ/L Blood Urea Nitrogen 15 MG/DL Creatinine 1.32 MG/DL Estimat Glomerular Filtration 43 ML/MIN Rate Random Glucose 318 MG/DL Calcium Level 9.4 MG/DL Magnesium Level 1.7 MG/DL Total Bilirubin 0.4 MG/DL Aspartate Amino Transf 24 U/L (AST/SGOT) Alanine Aminotransferase 37 U/L (ALT/SGPT) Alkaline Phosphatase 94 U/L Total Creatine Kinase 63 U/L Troponin I LESS THAN 0.02 NG/ML B-Type Natriuretic Peptide 71 PG/ML Total Protein 7.8 GM/DL Albumin 3.3 GM/DL Lipase 280 U/L [facility] Supervised Visit with IMTIAZ: Yes Interpretation(s) EKG: NSR 81bpm. TWI V2. Diagnosis Primary Impression: Chest pain Qualified Code: R07.9 - Chest pain, unspecified type Admitting Information Admitting Physician Requests: Observation Scripts Nifedipine ER 24 HR 30 Mg Tab30 Mg PO DAILY #30 TAB Ref 0 Prov:Humberto Flores 11/24/16 Shaina Jhaveri DO Nov 24, 2016 01:25
[2016-11-24] MEDS ORDERED: DEXTROSE 50% IN WATER 50 ML VIAL(D50) IV PRN (01:30)
[2016-11-24] MEDS ORDERED: GLUCAGON 1 MG/ML VIAL OTHER PRN (01:30)
[2016-11-24] MEDS ORDERED: SODIUM CHLORIDE 0.9% FLUSH 10 ML FLUSH IV FLUSH PRN (01:30)
[2016-11-24 03:22] LABS: CREATINE KINASE 75 U/L (26-192)
[2016-11-24 05:37] LABS: CREATINE KINASE 51 U/L (26-192)
[2016-11-24] MEDS ORDERED: INSULIN NovoLIN REGULAR SUPPLEMENTAL SCALE SQ SCH (07:00)
[2016-11-24] MEDS ORDERED: SODIUM CHLORIDE 0.9% FLUSH 10 ML FLUSH IV FLUSH SCH (09:00)
--- NOTE | 2016-11-24 11:08 | HHI.HP ---
[facility] Primary Care Physician Diane Rodriguez DO Chief Complaint Chest pain History of Present Illness This is a 46-year-old female with history of CAD with a three-vessel bypass in 2012 that presents to the ED complaining of 2 days of intermittent left-sided chest discomfort that she states is just beneath the left breast. It's a stabbing type discomfort. Will last a couple seconds but has recur several times. Maybe a little shortness of breath and nausea has been associated. Does not feel similar to when eating bypass. She believes she had a stress test recently and upon reviewing records she had a nonischemic Lexiscan June 2016 at this facility. She states she is not followed by sourcing associate. States she is compliant with her medication. Review of Systems General: Patient denies fevers, chills recent, and recent travel HEENT: Patient denies headache, sore throat, difficulty swallowing. Cardiovascular: Has the chest discomfort as mentioned above. Denies sensation of heart beating rapidly or irregularly. No syncope. Denies diaphoresis. Respiratory: A time short of breath. Denies or inspirational chest discomfort. Denies coughing wheezing or hemoptysis. GI: Little nauseous initially. Patient denies vomiting, diarrhea, abdominal pain, bloody stools. Musculoskeletal: Patient denies joint pain or edema. Denies calf pain or edema. Neurovascular: Patient denies numbness, tingling, weakness in extremities. Denies headache. Endocrine: Denies polyuria and polydipsia. Hematologic: Denies easy bruising. Skin: Denies rash or itching. Past Family Social History Allergies: Coded Allergies: Lexapro (Verified Allergy, Severe, 06/14/16) pt " states it makes me rip my skin out" Morphine (Verified Allergy, Severe, "MAKES ME WANT TO RIP MY SKIN OFF", 03/20) Phenergan (Verified Allergy, Severe, "MAKES ME WANT TO RIP MY SKIN OFF", ) Past Medical History CAD with a three-vessel bypass 2012. Hypertension, hyperlipidemia, diabetes, bipolar disorder, neuropathy. Past Surgical History Three-vessel CABG 2012. Reported Medications Reported Meds & Active Scripts Active Reported Prilosec (Omeprazole Magnesium) 20 Mg Tab Effexor (Venlafaxine HCl) 100 Mg Tab 225 Mg PO DAILY Latuda (Lurasidone) 80 Mg Tab 80 Mg PO HS Glipizide 5 Mg Tab 5 Mg PO BIDAC Take 30 minutes before a meal Janumet (Sitagliptin-Metformin) 50-1,000 Mg Tab 1 Tab PO BID Pravastatin 40 Mg Tab 40 Mg PO HS Metoprolol Tartrate 25 Mg Tab 25 Mg PO BID Lisinopril 2.5 Mg Tab 2.5 Mg PO DAILY Aspirin 325 Mg Tab 325 Mg PO DAILY Aspirin 81 Mg Chew 324 Mg CHEW DAILY Active Ordered Medications Current Medications Medications (Trade) Dose Ordered Sig/Jonas Route Start Time Stop Time Status Last Admin (NS Flush) 2 ml UNSCH PRN IV FLUSH 11/24/16 01:30 (NS Flush) 2 ml BID IV FLUSH 11/24/16 09:00 11/24/16 09:21 (D50w (Vial) Inj) 50 ml UNSCH PRN IV 11/24/16 01:30 (Glucagon Inj) 1 mg UNSCH PRN OTHER 11/24/16 01:30 Family History There is family history of CAD. Social History Patient quit smoking in 2012 prior that she smoked one half to one pack of cigarettes daily for 20 years. She has occasional cough. Denies illicit drugs. Physical Exam Vital Signs Vital Signs Date Time Temp Pulse Resp B/P Pulse Ox O2 Delivery O2 Flow Rate FiO2 11/24/16 08:03 94 21 11/24/16 07:30 83 11/24/16 07:10 98.8 84 14 111/61 95 11/24/16 03:35 98.1 85 20 102/49 96 11/24/16 02:40 85 11/24/16 02:00 86 15 164/72 100 Room Air 11/24/16 01:40 98 11/23/16 23:25 80 16 111/58 98 Room Air 11/23/16 23:20 79 120/60 Room Air 11/23/16 19:57 97.9 92 16 159/85 99 Room Air Physical Exam GENERAL: This is a well-nourished, well-developed patient, in no apparent distress. Patient speaks in clear complete sentences. Patient is pleasant. Patient was examined with a female services clerk at bedside. HEENT: Head is atraumatic and normocephalic. Neck is supple without lymphadenopathy and trachea is midline. No JVD or carotid bruits. CARDIOVASCULAR: Regular rate and rhythm without murmurs, gallops, or rubs. RESPIRATORY: Clear to auscultation. Breath sounds equal bilaterally. No wheezes , rales, or rhonchi. Chest wall is tender beneath the left breast reproducing the discomfort she has been having. No use of accessory muscles. GASTROINTESTINAL: Abdomen is nontender, nondistended. Abdomen soft. No obvious pulsatile mass or bruit. No CVA tenderness. Strong femoral pulses bilaterally. Normal bowel sounds in all quadrants. MUSCULOSKELETAL: Patient is moving upper and lower extremities freely. No calf tenderness or edema, no Homans sign. Strong pulses in upper and lower extremities. NEUROLOGICAL: Patient is alert and oriented. Cranial nerves 2-12 are grossly intact. No focal deficits and speech is clear. SKIN: No rash and turgor is normal. Laboratory Laboratory Tests Test 11/23/16 11/24/16 11/24/16 22:40 02:10 04:58 White Blood Count 14.5 Red Blood Count 4.42 Hemoglobin 12.2 Hematocrit 37.1 Mean Corpuscular Volume 83.9 Mean Corpuscular Hemoglobin 27.6 Mean Corpuscular Hemoglobin 32.9 Concent Red Cell Distribution Width 14.0 Platelet Count 329 Mean Platelet Volume 9.7 Neutrophils (%) (Auto) 73.7 Lymphocytes (%) (Auto) 19.2 Monocytes (%) (Auto) 6.6 Eosinophils (%) (Auto) 0.3 Basophils (%) (Auto) 0.2 Neutrophils # (Auto) 10.7 Lymphocytes # (Auto) 2.8 Monocytes # (Auto) 1.0 Eosinophils # (Auto) 0.0 Basophils # (Auto) 0.0 CBC Comment DIFF FINAL Differential Comment Prothrombin Time 10.0 Prothromb Time International 0.9 Ratio Activated Partial 25.3 Thromboplast Time Sodium Level 134 Potassium Level 4.4 Chloride Level 95 Carbon Dioxide Level 26.2 Anion Gap 13 Blood Urea Nitrogen 15 Creatinine 1.32 Estimat Glomerular Filtration 43 Rate Random Glucose 318 Calcium Level 9.4 Magnesium Level 1.7 Total Bilirubin 0.4 Aspartate Amino Transf 24 (AST/SGOT) Alanine Aminotransferase 37 (ALT/SGPT) Alkaline Phosphatase 94 Total Creatine Kinase 63 75 51 Troponin I LESS THAN 0.02 LESS THAN 0.02 LESS THAN 0.02 B-Type Natriuretic Peptide 71 Total Protein 7.8 Albumin 3.3 Lipase 280 Result Diagram: 7/23/17 2240 7/23/17 2240 Imaging Last 48 hours Impressions Chest X-Ray 11/23/162 Signed Impressions: Service Date/Time: Wednesday, November 23, 2016 22:19 - CONCLUSION: No acute disease. Satnam Camacho MD Course EKGs have been sinus rhythm without significant ST segment depressions or elevations. Assessment and Plan Assessment and Plan * Atypical chest pain: Patient has had serial cardiac enzymes and EKGs for ruling out purposes. She was seen by Dr. Knutson cardiology in the chest pain center and will be discharged home at this time with instructions to follow -up with PCP. She should also make arrangements follow-up with a sourcing associate on an outpatient basis. * CAD: Patient will need to follow-up with sourcing associate on an outpatient basis. * Hypertension: Patient states that her blood pressures have been fluctuating at home. States a little higher more recently. We will add Nifedical XL 30 mg. * Diabetes: Follow diabetic diet. Resume medication. * Hyperlipidemia: Continue current medication. * Bipolar disorder: Continue current medication. * Neuropathy: Continue current medication. Patient stable at this time. She is agreeable to this plan. Humberto Flores Nov 24, 2016 11:08
[2016-11-24] MEDS ORDERED: NIFE30TA61 PO (11:10)
--- NOTE | 2016-11-24 11:13 | HHI.DCPOC ---
Discharge Care Plan Diagnosis: (1) Atypical chest pain (2) CAD (coronary artery disease) (3) Hx of CABG (4) HTN (hypertension) (5) Hyperlipidemia (6) DM (diabetes mellitus), type 1, uncontrolled Goals to Promote Your Health * To prevent worsening of your condition and complications * To maintain your health at the optimal level Directions to Meet Your Goals Take your medications as prescribed Follow your dietary instruction Follow activity as directed Keep your appointments as scheduled Take your immunizations and boosters as scheduled If your symptoms worsen call your PCP, if no PCP go to Urgent Care Center or Emergency Room Smoking is Dangerous to Your Health. Avoid second hand smoke Call the 24-hour hour crisis hotline for domestic abuse at Humberto Flores Nov 24, 2016 11:12
--- NOTE | 2016-11-25 12:22 | EKG ---
Date Performed: 11/23/2016 Time Performed: 22:24:28 PTAGE: 46 years EKG: Sinus rhythm WITH OCCASIONAL ECTOPIC PREMATURE COMPLEXES MODERATE ST DEPRESSION ABNORMAL ECG Since PREVIOUS TRACING , no significant change noted PREVIOUS TRACIN06/15/2016 04.44 DOCTOR: Lexy Knutson Interpretating Date/Time 11/25/2016 12:22:13
--- NOTE | 2016-11-25 12:26 | EKG ---
Date Performed: 11/24/2016 Time Performed: 04:54:50 PTAGE: 46 years EKG: Sinus rhythm NORMAL ECG Since PREVIOUS TRACING , no significant change noted PREVIOUS TRACIN11/23/2016 22.24 DOCTOR: Lexy Knutson Interpretating Date/Time 11/25/2016 12:25:01
--- NOTE | 2016-11-25 12:26 | EKG ---
Date Performed: 11/24/2016 Time Performed: 02:18:17 PTAGE: 46 years EKG: Sinus rhythm NORMAL ECG Since PREVIOUS TRACING , no significant change noted PREVIOUS TRACIN11/23/2016 22.24 DOCTOR: Lexy Knutson Interpretating Date/Time 11/25/2016 12:24:31
== END 2016-11-24 12:24 | disposition home or self-care (01) ==
LOC: NEPC 19:52 → NEDA 11-24 01:24 → NEPFCDU 11-24 02:49
DX: R07.89 Other chest pain (principal); R94.31 Abnormal electrocardiogram [ECG] [EKG]; D72.829 Elevated white blood cell count, unspecified; R05 Cough; I25.10 Atherosclerotic heart disease of native coronary artery without angina pectoris; I11.0 Hypertensive heart disease with heart failure; I50.9 Heart failure, unspecified; E78.5 Hyperlipidemia, unspecified; E78.00 Pure hypercholesterolemia, unspecified; I25.2 Old myocardial infarction; E10.40 Type 1 diabetes mellitus with diabetic neuropathy, unspecified; E10.65 Type 1 diabetes mellitus with hyperglycemia; K21.9 Gastro-esophageal reflux disease without esophagitis; F31.9 Bipolar disorder, unspecified; F41.9 Anxiety disorder, unspecified; F43.10 Post-traumatic stress disorder, unspecified; Z95.5 Presence of coronary angioplasty implant and graft; Z79.84 Long term (current) use of oral hypoglycemic drugs; Z87.891 Personal history of nicotine dependence; Z95.1 Presence of aortocoronary bypass graft; Z79.899 Other long term (current) drug therapy; Z79.82 Long term (current) use of aspirin
CPT/HCPCS: 71010; 80053; 82550; 82948; 83690; 83735; 83880; 84484; 85025; 85610; 85730; 93005; 99285; G0378

== ENCOUNTER 2017-01-31 20:03 | Emergency (ER) | payer SELFPAY ==
[~2017-01-31] VITALS: Ht 165.1 cm; Wt 105.0 kg
[~2017-01-31 20:03] MED LIST changes: +NIFE30TA61 PO; -PRIL20CA9 PO; +PRIL20TA2
[2017-01-31 20:05] VITALS: BP 207/79; PULSE 91; RESP 16; TEMP 98.7; O2SAT 96
[2017-01-31] MEDS ORDERED: SODIUM CHLOR 0.9% 1000 ML INJ 1,000 ML IV ONE (21:28)
[2017-01-31] MEDS ORDERED: ONDANSETRON HCL 4 MG/2 ML VIAL IVP ONE (21:30)
[2017-01-31] MEDS ORDERED: SODIUM CHLORIDE 0.9% FLUSH 10 ML FLUSH IVF PRN (21:30)
[2017-01-31 21:37] VITALS: BP 185/74; PULSE 100; RESP 16; O2SAT 99
--- NOTE | 2017-01-31 21:37 | PD ---
HPI Chief Complaint: Chest Pain Time Seen by Provider: 21:20 Travel History International Travel<30 days: No Contact w/Intl Traveler<30days: No Traveled to known affect area: No History of Present Illness HPI 47-year-old female with a history of CABG, diabetes, hypertension presents to the emergency department for evaluation of dizziness, vomiting, headache, fall, chest pain. Patient states she woke around 3:57 AM feeling dizzy. She states that she felt like her eyes are moving back and forth. Patient states that dizziness has been intermittent, especially with movement throughout the day. She states that this afternoon, she was so dizzy that she fell hitting her head against the bathtub. She states she does have neck pain, but states she had neck pain before the fall. Patient states she's had intermittent chest pain throughout the day. She has no chest pain at this time. She did aspirin 325 mg by mouth earlier. Patient states she has vomited multiple times today. Patient states that she felt similar to this last time she had an NV. Patient denies any history of DVT/PE. No leg edema. No hemoptysis. No control pills. 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 PFSH Past Medical History Arthritis: Yes ("in my back") Blood Disorders: No Anxiety: Yes Depression: No Heart Rhythm Problems: No Cancer: No Cardiac Catheterization: Yes Cardiovascular Problems: Yes (NV, CABGX3, HTN) High Cholesterol: Yes Chest Pain: Yes Congestive Heart Failure: Yes Cerebrovascular Accident: No Coronary Artery Disease: Yes Diabetes: Yes Patient Takes Glucophage: No Diminished Hearing: No Endocrine: Yes Gastrointestinal Disorders: Yes GERD: Yes Genitourinary: Yes Headaches: Yes Hiatal Hernia: No Heparin Induced Thrombocytopen: No Hypertension: Yes Immune Disorder: No Implanted Vascular Access Dvce: Yes Kidney Stones: Yes (2000) Musculoskeletal: Yes Neurologic: No Psychiatric: Yes (PTSD) Reproductive: No Respiratory: Yes (C PAP) Migraines: No Myocardial Infarction: Yes Thyroid Disease: No Triglycerides - High: Yes Ulcer: No Tetanus Vaccination: Unknown Influenza Vaccination: No ?: Not LMP: 01/07/2017 : 3 Para: 2 Miscarriage: 1 Tubal Ligation: Yes (1991) Past Surgical History Body Medical Devices: "STENT IN MY HEART" Cardiac Surgery: Yes (two heart caths) Coronary Artery Bypass Graft: Yes (CABG X 3 IN 2014) Eye Surgery: Yes (LASER SURGERY ON EYES) Family History Family Myocardial Infarction: Yes Social History Alcohol Use: Yes (RARE) Tobacco Use: No (QUIT APR 2013) Substance Use: No Allergies-Medications (Allergen,Severity, Reaction): Coded Allergies: escitalopram (Unverified Allergy, Severe, 12/16/16) pt " states it makes me rip my skin out" morphine (Unverified Allergy, Severe, "MAKES ME WANT TO RIP MY SKIN OFF", 12/16/16) promethazine (Unverified Allergy, Severe, "MAKES ME WANT TO RIP MY SKIN OFF", 12/16/16) Reported Meds & Prescriptions Reported Meds & Active Scripts Active Nifedipine ER 24 HR (Nifedipine) 30 Mg Tab 30 Mg PO DAILY Reported Prilosec (Omeprazole Magnesium) 20 Mg Tab Effexor (Venlafaxine HCl) 100 Mg Tab 225 Mg PO DAILY Latuda (Lurasidone) 80 Mg Tab 80 Mg PO HS Glipizide 5 Mg Tab 5 Mg PO BIDAC Take 30 minutes before a meal Janumet (Sitagliptin-Metformin) 50-1,000 Mg Tab 1 Tab PO BID Pravastatin 40 Mg Tab 40 Mg PO HS Metoprolol Tartrate 25 Mg Tab 25 Mg PO BID Lisinopril 2.5 Mg Tab 2.5 Mg PO DAILY Aspirin 325 Mg Tab 325 Mg PO DAILY Aspirin 81 Mg Chew 324 Mg CHEW DAILY Review of Systems Except as stated in HPI: all other systems reviewed are Neg Physical Exam Narrative GENERAL: Well-nourished, well-developed female patient, afebrile. SKIN: Focused skin assessment warm/dry. HEAD: Normocephalic. Atraumatic. EYES: No scleral icterus. No injection or drainage. ENT: Mucosa pink and moist. No erythema or exudates. No uvular edema. No uvular , palatal, or tonsillar deviation. Airway patent. Nasal turbinates appear normal without nasal blood, purulent drainage or septal hematoma. Bilateral tympanic membranes are clear without erythema or perforation. NECK: Supple, trachea midline. No JVD or lymphadenopathy. CARDIOVASCULAR: Regular rate and rhythm without murmurs, gallops, or rubs. Bilateral radial and pedal pulses are 2+. RESPIRATORY: Breath sounds equal bilaterally. No accessory muscle use. Lungs sounds are clear to auscultation. GASTROINTESTINAL: Abdomen soft, non-tender, nondistended. MUSCULOSKELETAL: No cyanosis, or edema. Bilateral upper lower extension strength 5/5. All extremities are neurovascularly intact. BACK: Nontender without obvious deformity. No CVA tenderness. Data Data Last Documented VS Vital Signs Date Time Temp Pulse Resp B/P (MAP) Pulse Ox O2 Delivery O2 Flow Rate FiO2 01/31/17 21:40 Room Air 01/31/17 21:39 97 01/31/17 21:37 100 16 01/31/17 20:05 98.7 Orders Orders Electrocardiogram (01/31/17 21:28) Complete Blood Count With Diff (01/31/17 21:28) Comprehensive Metabolic Panel (01/31/17 21:28) Magnesium (Mg) (01/31/17 21:28) Ckmb (Isoenzyme) Profile (01/31/17 21:28) Troponin I (01/31/17 21:28) Act Partial Throm Time (Ptt) (01/31/17 21:28) Prothrombin Time / Inr (Pt) (01/31/17 21:28) Urinalysis - C+S If Indicated (01/31/17 21:28) Chest, Single Ap (01/31/17 21:28) Ct Brain W/O Iv Contrast(Rout) (01/31/17 21:28) Ecg Monitoring (01/31/17 21:28) Iv Access Insert/Monitor (01/31/17 21:28) Oximetry (01/31/17 21:28) Ondansetron Inj (Zofran Inj) (01/31/17 21:30) Sodium Chloride 0.9% Flush (Ns Flush) (01/31/17 21:30) Sodium Chlor 0.9% 1000 Ml Inj (Ns 1000 M (01/31/17 21:28) Ed Urine Pregnancytest Poc (01/31/17 21:28) Ct Cerv Spine W/O Contrast (01/31/17 ) Orthostatic Vital Signs (01/31/17 21:32) Meclizine (Antivert) (01/31/17 21:45) Labs Laboratory Tests Test 01/31/17 21:51 White Blood Count 13.1 TH/MM3 Red Blood Count 4.26 MIL/MM3 Hemoglobin 12.0 GM/DL Hematocrit 37.0 % Mean Corpuscular Volume 86.7 FL Mean Corpuscular Hemoglobin 28.1 PG Mean Corpuscular Hemoglobin Concent 32.5 % Red Cell Distribution Width 14.3 % Platelet Count 292 TH/MM3 Mean Platelet Volume 9.4 FL Neutrophils (%) (Auto) 92.3 % Lymphocytes (%) (Auto) 3.6 % Monocytes (%) (Auto) 3.9 % Eosinophils (%) (Auto) 0.1 % Basophils (%) (Auto) 0.1 % Neutrophils # (Auto) 12.1 TH/MM3 Lymphocytes # (Auto) 0.5 TH/MM3 Monocytes # (Auto) 0.5 TH/MM3 Eosinophils # (Auto) 0.0 TH/MM3 Basophils # (Auto) 0.0 TH/MM3 CBC Comment DIFF FINAL Differential Comment MDM Medical Decision Making Medical Screen Exam Complete: Yes Emergency Medical Condition: Yes Medical Record Reviewed: Yes Interpretation(s) ct brain - CONCLUSION: No acute findings in the brain. ct of the cervical spine - CONCLUSION: 1. No evidence of compression deformity or spondylolisthesis. 2. Moderate discogenic degenerative changes C5-7. chest x-ray - CONCLUSION: The lungs are clear. Differential Diagnosis Vertigo versus intracranial abnormality versus ACS versus electrolyte abnormality versus dehydration Narrative Course 47-year-old female presents to the emergency department for evaluation of dizziness, vomiting, intermittent chest pain, fall. EKG, CBC, CMP, magnesium, CK, troponin, PTT, PT/INR, UA, urine test are ordered and pending. Chest x-ray and CT of the brain and CT of the cervical spine are ordered and pending. Patient is given normal saline 1 L IV bolus, Zofran 4 mg IV, meclizine 25 mg by mouth. Orthostatic vital signs are ordered and pending. EKG shows sinus rhythm, heart rate 98, no acute ST changes. CBC shows leukocytosis 13.1, neutrophil percentage 92.3. CMP, Magnesium, CK, Troponin, Coags, UA are ordered and pending. UPT is negative. Chest x-ray shows no acute abnormalities. CT of the brain shows no acute findings. CT of the cervical spine shows no evidence of compression deformity or spondylolisthesis; moderate discogenic degenerative changes C5-7. Orthostatic VS are pending. Dr. Newman will resume care and disposition of patient. Marga Méndez Jan 31, 2017 21:37
[2017-01-31 21:39] VITALS: O2SAT 97
[2017-01-31] MEDS ORDERED: MECLIZINE HCL 25 MG TAB PO ONE (21:45)
[2017-01-31 22:05] LABS: AUTOMATED NEUTROPHIL # 12.1 TH/MM3 (1.8-7.7); BASOPHIL % 0.1 % (0.0-2.0); EOSINOPHIL % 0.1 % (0.0-4.0); HEMO FLAGS DIFF FINAL; LYMPH % 3.6 % (9.0-44.0); LYMPHOCYTE # 0.5 TH/MM3 (1.0-4.8); MEAN CELL VOLUME 86.7 FL (80.0-100.0); MEAN CORPUSCULAR HEMOGLOBIN 28.1 PG (27.0-34.0); MEAN CORPUSCULAR HGB CONC 32.5 % (32.0-36.0); MONO % 3.9 % (0.0-8.0); NEUT % 92.3 % (16.0-70.0); PLATELET COUNT 292 TH/MM3 (150-450); RED BLOOD COUNT 4.26 MIL/MM3 (4.00-5.30); RED CELL DISTRIBUTION WIDTH 14.3 % (11.6-17.2); WHITE BLOOD COUNT 13.1 TH/MM3 (4.0-11.0)
--- NOTE | 2017-01-31 22:09 | RADRPT ---
EXAM DATE/TIME: 01/31/2017 22:03 [facility] COMPARISON: CT BRAIN W/O CONTRAST, June 14, 2016, 23:18. INDICATIONS : Trauma, fell and hit head. RADIATION DOSE: 44.93 CTDIvol (mGy) MEDICAL HISTORY : Cardiovascular disease. Myocardial infarction. Congestive heart failure.Hypertension. Diabetes. SURGICAL HISTORY : CABG Tubal ligation. ENCOUNTER: Initial ACUITY: 1 day PAIN SCALE: 3/10 LOCATION: cranial TECHNIQUE: Multiple contiguous axial images were obtained of the head. Using automated exposure control and adj ustment of the mA and/or kV according to patient size, radiation dose was kept as low as reasonably a chievable to obtain optimal diagnostic quality images. DICOM format image data is available electro nically for review and comparison. FINDINGS: Metallic earrings bilaterally cause streak artifact and low convexity images. CEREBRUM: The ventricles are normal for age. No evidence of midline shift, mass lesion, hemorrhage or acute in farction. No extra-axial fluid collections are seen. POSTERIOR FOSSA: The cerebellum and brainstem are intact. The 4th ventricle is midline. The cerebellopontine angle i s unremarkable. EXTRACRANIAL: The visualized portion of the orbits is intact. SKULL: The calvaria is intact. No evidence of skull fracture. CONCLUSION: No acute findings in the brain. Ji Griffith MD on January 31, 2017 at 22:07 Board Certified Radiologist. This report was verified electronically.
--- NOTE | 2017-01-31 22:16 | RADRPT ---
EXAM DATE/TIME: 01/31/2017 22:03 [facility] COMPARISON: No previous studies available for comparison. INDICATIONS : Trauma, fell and hit head. RADIATION DOSE: 21.47 CTDIvol (mGy) MEDICAL HISTORY : Cardiovascular disease. Myocardial infarction. Congestive heart failure.Hypertension. Diabetes. SURGICAL HISTORY : CABG Tubal ligation. ENCOUNTER: Initial ACUITY: 1 day PAIN SCALE: 3/10 LOCATION: neck TECHNIQUE: Volumetric scanning of the cervical spine was performed. Multiplanar reconstructions in the sagittal, coronal and oblique axial planes were performed. Using automated exposure control and adjustment o f the mA and/or kV according to patient size, radiation dose was kept as low as reasonably achievable to obtain optimal diagnostic quality images. DICOM format image data is available electronically f or review and comparison. FINDINGS: There is normal alignment of vertebral bodies of the cervical spine preservation of vertebral body he ight. Posterior elements are in normal alignment without evidence of locked or perched facets. Brid ging anterior paravertebral ossification is present at C5-6 and there moderate posterior osteophytes at the C5-6 and C6-7 level on the right side. The atlantoaxial articulation is intact. Paraspinal s oft tissues are unremarkable. C2-C3: No fracture seen. The neural foramen are patent. C3-C4: No fracture seen. The neural foramen are patent. C4-C5: No fracture seen. The neural foramen are patent. C5-C6: No fracture seen. Moderate bilateral neural foraminal stenosis. C6-C7: No fracture seen. The neural foramen are patent. C7-T1: No fracture seen. The neural foramen are patent. CONCLUSION: 1. No evidence of compression deformity or spondylolisthesis. 2. Moderate discogenic degenerative changes C5-7. Ji Griffith MD on January 31, 2017 at 22:12 Board Certified Radiologist. This report was verified electronically.
--- NOTE | 2017-01-31 22:22 | RADRPT ---
EXAM DATE/TIME: 01/31/2017 22:13 [facility] COMPARISON: CHEST SINGLE AP, November 23, 2016, 22:19. INDICATIONS : Chest pain. MEDICAL HISTORY : Diabetes mellitus type II. Hypertension Cardio Myopathy. SURGICAL HISTORY : CABG. ENCOUNTER: Initial ACUITY: 1 day PAIN SCORE: 10/10 LOCATION: Bilateral chest FINDINGS: A single view of the chest demonstrates the lungs to be symmetrically aerated without evidence of mas s, infiltrate or effusion. The cardiomediastinal contours are unremarkable. Osseous structures are intact. Intact sternal hardware from prior median sternotomy. CONCLUSION: The lungs are clear. Ji Griffith MD on January 31, 2017 at 22:20 Board Certified Radiologist. This report was verified electronically.
[2017-01-31 22:24] LABS: APTT (PATIENT) 25.2 SEC (24.3-30.1); INTERNATIONAL NORMALIZED RATIO 0.9 RATIO
[2017-01-31 22:42] LABS: ALKALINE PHOSPHATASE 91 U/L (45-117); ALT (GPT) 20 U/L (10-53); ANION GAP 11 MEQ/L (5-15); AST (GOT) 18 U/L (15-37); BICARBONATE 22.6 MEQ/L (21.0-32.0); BLOOD UREA NITROGEN 16 MG/DL (7-18); CHLORIDE 95 MEQ/L (98-107); GLOMERULAR FILTRATION RATE 46 ML/MIN (>89); MAGNESIUM 1.1 MG/DL (1.5-2.5); SODIUM (NA) 129 MEQ/L (136-145); TOTAL BILIRUBIN ADULT 0.5 MG/DL (0.2-1.0)
[2017-01-31 22:43] LABS: CREATINE KINASE 79 U/L (26-192)
[2017-01-31 23:30] LABS: BLOOD, URINE TRACE (NEG); COMMENT (UR) CULT NOT INDICATED; CULTURE IF INDICATED CULT NOT INDICATED; GLUCOSE,URINE 1000 mg/dL (NEG); HYALINE CAST, URINE 1 /lpf (RARE); KETONE, URINE NEG (NEG); MUCUS URINE FEW /lpf (OCC); NITRITE,URINE NEG (NEG); SQUAMOUS EPITHELIAL CELL URINE 1 /hpf (0-5); URINE COLOR YELLOW (YELLW/STRAW)
[2017-01-31] MEDS ORDERED: MECL-62 PO (23:32)
--- NOTE | 2017-01-31 23:32 | PD ---
Data Data Last Documented VS Vital Signs Date Time Temp Pulse Resp B/P (MAP) Pulse Ox O2 Delivery O2 Flow Rate FiO2 01/31/17 21:40 Room Air 01/31/17 21:39 97 01/31/17 21:37 100 16 01/31/17 20:05 98.7 Orders Orders Electrocardiogram (01/31/17 21:28) Complete Blood Count With Diff (01/31/17 21:28) Comprehensive Metabolic Panel (01/31/17 21:28) Magnesium (Mg) (01/31/17 21:28) Ckmb (Isoenzyme) Profile (01/31/17 21:28) Troponin I (01/31/17 21:28) Act Partial Throm Time (Ptt) (01/31/17 21:28) Prothrombin Time / Inr (Pt) (01/31/17 21:28) Urinalysis - C+S If Indicated (01/31/17 21:28) Chest, Single Ap (01/31/17 21:28) Ct Brain W/O Iv Contrast(Rout) (01/31/17 21:28) Ecg Monitoring (01/31/17 21:28) Iv Access Insert/Monitor (01/31/17 21:28) Oximetry (01/31/17 21:28) Ondansetron Inj (Zofran Inj) (01/31/17 21:30) Sodium Chloride 0.9% Flush (Ns Flush) (01/31/17 21:30) Sodium Chlor 0.9% 1000 Ml Inj (Ns 1000 M (01/31/17 21:28) Ed Urine Pregnancytest Poc (01/31/17 21:28) Ct Cerv Spine W/O Contrast (01/31/17 ) Orthostatic Vital Signs (01/31/17 21:32) Meclizine (Antivert) (01/31/17 21:45) Labs Laboratory Tests Test 01/31/17 21:51 01/31/17 22:45 White Blood Count 13.1 TH/MM3 Red Blood Count 4.26 MIL/MM3 Hemoglobin 12.0 GM/DL Hematocrit 37.0 % Mean Corpuscular Volume 86.7 FL Mean Corpuscular Hemoglobin 28.1 PG Mean Corpuscular Hemoglobin Concent 32.5 % Red Cell Distribution Width 14.3 % Platelet Count 292 TH/MM3 Mean Platelet Volume 9.4 FL Neutrophils (%) (Auto) 92.3 % Lymphocytes (%) (Auto) 3.6 % Monocytes (%) (Auto) 3.9 % Eosinophils (%) (Auto) 0.1 % Basophils (%) (Auto) 0.1 % Neutrophils # (Auto) 12.1 TH/MM3 Lymphocytes # (Auto) 0.5 TH/MM3 Monocytes # (Auto) 0.5 TH/MM3 Eosinophils # (Auto) 0.0 TH/MM3 Basophils # (Auto) 0.0 TH/MM3 CBC Comment DIFF FINAL Differential Comment Prothrombin Time 10.0 SEC Prothromb Time International Ratio 0.9 RATIO Activated Partial Thromboplast Time 25.2 SEC Blood Urea Nitrogen 16 MG/DL Creatinine 1.26 MG/DL Random Glucose 416 MG/DL Total Protein 7.2 GM/DL Albumin 2.9 GM/DL Calcium Level 8.5 MG/DL Magnesium Level 1.1 MG/DL Alkaline Phosphatase 91 U/L Aspartate Amino Transf (AST/SGOT) 18 U/L Alanine Aminotransferase (ALT/SGPT) 20 U/L Total Bilirubin 0.5 MG/DL Sodium Level 129 MEQ/L Potassium Level 5.0 MEQ/L Chloride Level 95 MEQ/L Carbon Dioxide Level 22.6 MEQ/L Anion Gap 11 MEQ/L Estimat Glomerular Filtration Rate 46 ML/MIN Total Creatine Kinase 79 U/L Troponin I LESS THAN 0.02 NG/ML MDM Supervised Visit with IMTIAZ: Yes Narrative Course The history, exam, and medical decision-making in the associated midlevel provider note were completed with my assistance. I reviewed and agree with the findings presented. I attest that I had a [id number] encounter with the patient on the same day, and personally performed and documented my assessment and findings in the medical record. *My assessment and Findings: This is a 47-year-old female who has a history of heart disease who had a stress test in June which is reassuring he presents to the emergency department with vertigo, saying that throughout the day intermittently she's been feeling like her eyes are moving and she can't stop them. She says when she sits still she feels okay but when she moves she feels very dizzy and she's had multiple episodes of vomiting. She has a normal neurologic exam except for some inducible horizontal nystagmus to the left. She was given meclizine by the nurse practitioner. She says she feels much better. She was able to drink in the emergency department. I suspect she has BPPV based on her symptoms. I don't suspect a stroke given her normal neurologic exam. I think she is safe for discharge with meclizine and to follow -up with her primary care physician. She was given IV hydration and IV insulin for her hyperglycemia. Diagnosis Primary Impression: Vertigo Patient Instructions: General Instructions Additional Instruction: If you develop severe chest pain, shortness of breath, sweating, lightheadedness , dizziness or difficulty breathing return to the emergency department immediately. Followup with your primary care physician in 2-3 days if your symptoms are not resolved. Med/Other Pt SpecificInfo: Prescription(s) given Scripts Meclizine (Meclizine) 25 Mg Tab 25 MG PO Q6HR Y for VERTIGO, #15 TAB 0 Refills Prov: Alexandrea Newman MD 01/31/17 Disposition: 01 DISCHARGE HOME Condition: Stable Alexandrea Newman MD Jan 31, 2017 23:32
[2017-01-31] MEDS ORDERED: INSULIN HUMAN REGULAR 1,000 UNITS/10 ML VIAL IV PUSH ONE (23:45)
[2017-01-31] MEDS ORDERED: SODIUM CHLOR 0.9% 1000 ML INJ 1,000 ML IV SCH (23:45)
[2017-02-01 00:46] VITALS: BP 165/70
--- NOTE | 2017-02-01 07:07 | EKG ---
Date Performed: 01/31/2017 Time Performed: 21:48:27 PTAGE: 47 years EKG: Sinus rhythm NORMAL ECG PREVIOUS TRACING : 01/31/2017 20.55 No significant change from previous tracing noted. DOCTOR: Masood Magallanes Interpretating Date/Time 02/01/2017 07:05:30
--- NOTE | 2017-02-01 07:08 | EKG ---
Date Performed: 01/31/2017 Time Performed: 20:55:11 PTAGE: 47 years EKG: Sinus rhythm NORMAL ECG PREVIOUS TRACING : 11/24/2016 04.54 No significant change from previous tracing noted. DOCTOR: Masood Magallanes Interpretating Date/Time 02/01/2017 07:06:27
== END 2017-02-01 00:55 | disposition home or self-care (01) ==
LOC: NEPE 20:03
DX: R42 Dizziness and giddiness (principal); R11.10 Vomiting, unspecified; R51 Headache; R07.9 Chest pain, unspecified; M54.2 Cervicalgia; D72.829 Elevated white blood cell count, unspecified; E11.9 Type 2 diabetes mellitus without complications; I11.0 Hypertensive heart disease with heart failure; I50.9 Heart failure, unspecified
CPT/HCPCS: 70450; 71010; 72125; 80053; 81001; 82550; 83735; 84484; 84703; 85025; 85610; 85730; 93005; 96361; 96374; 96375; 99285; J1815; J2405; J7030

== ENCOUNTER 2017-03-28 17:44 | Emergency (ER) | payer SELFPAY ==
[~2017-03-28] VITALS: Ht 165.1 cm; Wt 105.0 kg
[~2017-03-28 17:44] MED LIST changes: +ASPI-183 PO; +ASPI-516 CHEW; -ASPI325T PO; -ASPI81CH CHEW; +MECL-62 PO
[2017-03-28 17:47] VITALS: BP 144/91; PULSE 108; RESP 14; TEMP 98.9; O2SAT 99
[2017-03-28] MEDS ORDERED: TETANUS/DIPHTHERIA TOXOID ADULT 0.5 ML VIAL IM ONE (19:15)
--- NOTE | 2017-03-28 19:19 | PD ---
HPI Chief Complaint: Bite or Sting Time Seen by Provider: 19:03 Travel History International Travel<30 days: No Contact w/Intl Traveler<30days: No Traveled to known affect area: No History of Present Illness HPI Patient is a 47-year-old female presenting to emergency department evaluation of possible cellulitis. Patient states she was bitten by a rat on the left first toe 2 weeks ago. For the last 3 days she's had increasing redness and spontaneous puslike drainage. She states that her normal body temperature is 97.6 degrees, she reports 98.6 at home. Patient is concerned because she is diabetic, she has diabetic neuropathy so she has no significant pain. She states that she does not check her blood sugars regularly because she cannot afford her test strips. She is compliant with medications and her last A1c was in June 2016 at 8%. She has no other complaints at this time. PFSH Past Medical History Arthritis: Yes Blood Disorders: No Anxiety: Yes Depression: No Heart Rhythm Problems: No Cancer: No Cardiac Catheterization: Yes High Cholesterol: Yes Chest Pain: Yes Congestive Heart Failure: Yes Cerebrovascular Accident: No Coronary Artery Disease: Yes Diabetes: Yes Patient Takes Glucophage: Yes (janumet) Diminished Hearing: No GERD: Yes Headaches: Yes Hiatal Hernia: No Heparin Induced Thrombocytopen: No Hypertension: Yes Immune Disorder: No Kidney Stones: Yes Neurologic: No Psychiatric: Yes (PTSD) Reproductive: No Migraines: No Myocardial Infarction: Yes Sleep Apnea: Yes Thyroid Disease: No Triglycerides - High: Yes Ulcer: No Tetanus Vaccination: Unknown ?: Not : 3 Para: 2 Miscarriage: 1 Tubal Ligation: Yes (1991) Past Surgical History Cardiac Surgery: Yes (two heart caths) Coronary Artery Bypass Graft: Yes (CABG X 3 IN 2013) Eye Surgery: Yes (LASER SURGERY ON EYES) Family History Family Myocardial Infarction: Yes Social History Alcohol Use: Yes (RARE) Tobacco Use: No (QUIT APR 2013) Substance Use: No Allergies-Medications (Allergen,Severity, Reaction): Coded Allergies: escitalopram (Unverified Allergy, Severe, 03/28/17) pt " states it makes me rip my skin out" morphine (Unverified Allergy, Severe, "MAKES ME WANT TO RIP MY SKIN OFF", 03/28/17) promethazine (Unverified Allergy, Severe, "MAKES ME WANT TO RIP MY SKIN OFF", 03/28/17) Reported Meds & Prescriptions Reported Meds & Active Scripts Active Mupirocin Topical (Mupirocin) 2 % Oint 1 Applic TOPICAL BID Keflex (Cephalexin) 500 Mg Cap 500 Mg PO Q12H Meclizine (Meclizine HCl) 25 Mg Tab 25 Mg PO Q6HR PRN Reported Effexor (Venlafaxine HCl) 100 Mg Tab 225 Mg PO DAILY Latuda (Lurasidone) 80 Mg Tab 80 Mg PO HS Glipizide 5 Mg Tab 10 Mg PO BIDAC Take 30 minutes before a meal Janumet (Sitagliptin-Metformin) 50-1,000 Mg Tab 1 Tab PO BID Pravastatin 40 Mg Tab 40 Mg PO HS Metoprolol Tartrate 25 Mg Tab 25 Mg PO BID Lisinopril 2.5 Mg Tab 2.5 Mg PO DAILY Aspirin 325 Mg Tab 325 Mg PO DAILY Review of Systems Except as stated in HPI: all other systems reviewed are Neg Skin: Positive Change in Pigmentation, Positive Lesions Physical Exam Narrative GENERAL: Obese, well developed, alert female. Resting in no acute distress. SKIN: Warm and dry. 0.5 scabbed lesion to lateral aspect to left first toe, mild induration, scant purulent drainage. 0.5 cm scabbed healing lesion to the plantar aspect of the right 2 toe. HEAD: Normocephalic. EYES: No scleral icterus. No injection or drainage. NECK: Supple, trachea midline. No JVD or lymphadenopathy. CARDIOVASCULAR: Regular rate and rhythm without murmurs, gallops, or rubs. 2+ dorsalis pedal pulses, brisk < 3 second capillary refill. RESPIRATORY: Breath sounds equal bilaterally. No accessory muscle use. GASTROINTESTINAL: Abdomen soft, non-tender, nondistended. MUSCULOSKELETAL: No cyanosis, or edema. BACK: Nontender without obvious deformity. No CVA tenderness. Data Data Last Documented VS Vital Signs Date Time Temp Pulse Resp B/P (MAP) Pulse Ox O2 Delivery O2 Flow Rate FiO2 03/28/17 20:40 03/28/17 19:31 102 17 99 03/28/17 17:47 98.9 Orders Orders Basic Metabolic Panel (Bmp) (03/28/17 19:11) Complete Blood Count With Diff (03/28/17 19:11) Wound Culture And Gram Stain (03/28/17 19:11) Tetanus/Diphtheria Tox Adult (Tetanus/Di (03/28/17 19:15) Toe (Min 2vws) (03/28/17 ) Iv Access Insert/Monitor (03/28/17 19:11) Cephalexin (Keflex) (03/28/17 20:45) Ed Discharge Order (03/28/17 20:34) Labs Laboratory Tests Test 03/28/17 19:45 White Blood Count 11.4 TH/MM3 Red Blood Count 4.04 MIL/MM3 Hemoglobin 11.3 GM/DL Hematocrit 34.8 % Mean Corpuscular Volume 86.1 FL Mean Corpuscular Hemoglobin 27.9 PG Mean Corpuscular Hemoglobin Concent 32.4 % Red Cell Distribution Width 14.1 % Platelet Count 267 TH/MM3 Mean Platelet Volume 9.2 FL Neutrophils (%) (Auto) 72.3 % Lymphocytes (%) (Auto) 20.3 % Monocytes (%) (Auto) 6.8 % Eosinophils (%) (Auto) 0.1 % Basophils (%) (Auto) 0.5 % Neutrophils # (Auto) 8.2 TH/MM3 Lymphocytes # (Auto) 2.3 TH/MM3 Monocytes # (Auto) 0.8 TH/MM3 Eosinophils # (Auto) 0.0 TH/MM3 Basophils # (Auto) 0.1 TH/MM3 CBC Comment DIFF FINAL Differential Comment Blood Urea Nitrogen 21 MG/DL Creatinine 1.29 MG/DL Random Glucose 287 MG/DL Calcium Level 8.6 MG/DL Sodium Level 130 MEQ/L Potassium Level 4.9 MEQ/L Chloride Level 96 MEQ/L Carbon Dioxide Level 22.7 MEQ/L Anion Gap 11 MEQ/L Estimat Glomerular Filtration Rate 44 ML/MIN [facility] Medical Decision Making Medical Screen Exam Complete: Yes Emergency Medical Condition: Yes Interpretation(s) Vital Signs Date Time Temp Pulse Resp B/P (MAP) Pulse Ox O2 Delivery O2 Flow Rate FiO2 03/28/17 17:47 98.9 108 14 144/91 (108) 99 Differential Diagnosis Cellulitis vs abscess vs osteomyelitis vs other. Narrative Course Patient is a 47-year-old female that presented to the emergency room for evaluation after she was allegedly bitten by a rat 2 weeks ago and developed redness and drainage 3 days ago. Patient is neurovascularly intact. Wound culture ordered and pending. We'll obtain basic labs. X-rays ordered and pending. There was no significant fluctuance to perform an I&D. X-ray was read by the radiologist as no acute bony after malady. CBC with a white count 11.4. Chemistry with a sodium of 130 also stable when compared to prior, BUN/creatinine 21/1.29 which is stable when compared to prior. Patient will be discharged home on Bactrim and Keflex. She was advised to follow-up with her primary doctor, she was encouraged to return to emergency department for any new or worsening symptoms. She was encouraged to rest, elevate extremity. She is advised to complete full course of antibiotics as prescribed. She verbalized understanding of instructions. Patient is stable for discharge. Diagnosis Primary Impression: Cellulitis and abscess of toe Qualified Codes: L03.032 - Cellulitis of left toe; L02.612 - Cutaneous abscess of left foot Additional Impression: Type 2 diabetes mellitus Qualified Codes: E11.65 - Type 2 diabetes mellitus with hyperglycemia Referrals: Primary Care Physician 3 days Patient Instructions: Cellulitis (ED), General Instructions Additional Instructions: Follow-up with your primary doctor Rest, elevate extremity Complete full course of antibiotics as prescribed Return to emergency department for any new or worsening symptoms Apply topical antibiotic ointment twice daily to cover with Band-Aid Follow a diabetic diet, avoid concentrated sweets, juices. Follow-up with her primary doctor regarding your blood sugar management. Med/Other Pt SpecificInfo: Prescription(s) given Scripts Mupirocin Topical (Mupirocin Topical) 2 % Oint 1 APPLIC TOPICAL BID for Mgmt Bacterial Infection, #1 TUBE 0 Refills Prov: Miliva Harrison 03/28/17 Cephalexin (Keflex) 500 Mg Cap 500 MG PO Q12H for Infection, #20 CAP 0 Refills Prov: Milvia Harrison 03/28/17 Disposition: 01 DISCHARGE HOME Condition: Stable Milvia Harrison Mar 28, 2017 19:19
[2017-03-28 19:31] VITALS: BP 161/76; PULSE 102; RESP 17; O2SAT 99
--- NOTE | 2017-03-28 19:38 | RADRPT ---
EXAM DATE/TIME: 03/28/2017 19:21 [facility] COMPARISON: No previous studies available for comparison. INDICATIONS : Bone infarction. Bitten by rat 2 weeks ago. MEDICAL HISTORY : Diabetic neuropathy. SURGICAL HISTORY : None. ENCOUNTER: Initial ACUITY: 2 weeks PAIN SCORE: 0/10 LOCATION: Left Medial side of toe and bottom of left toe. FINDINGS: Examination of the first digit of the left foot demonstrates no evidence of fracture or dislocation. No radiopaque foreign bodies are seen. The soft tissues are intact. CONCLUSION: Osseous structures of the 1st digit have a normal radiographic appearance. Ji Griffith MD on March 28, 2017 at 19:36 Board Certified Radiologist. This report was verified electronically.
[2017-03-28 20:03] LABS: AUTOMATED NEUTROPHIL # 8.2 TH/MM3 (1.8-7.7); BASOPHIL # 0.1 TH/MM3 (0-0.2); BASOPHIL % 0.5 % (0.0-2.0); EOSINOPHIL % 0.1 % (0.0-4.0); HEMATOCRIT 34.8 % (35.0-46.0); HEMO FLAGS DIFF FINAL; LYMPH % 20.3 % (9.0-44.0); LYMPHOCYTE # 2.3 TH/MM3 (1.0-4.8); MEAN CELL VOLUME 86.1 FL (80.0-100.0); MEAN CORPUSCULAR HEMOGLOBIN 27.9 PG (27.0-34.0); MEAN CORPUSCULAR HGB CONC 32.4 % (32.0-36.0); MONO % 6.8 % (0.0-8.0); NEUT % 72.3 % (16.0-70.0); PLATELET COUNT 267 TH/MM3 (150-450); RED BLOOD COUNT 4.04 MIL/MM3 (4.00-5.30); RED CELL DISTRIBUTION WIDTH 14.1 % (11.6-17.2); WHITE BLOOD COUNT 11.4 TH/MM3 (4.0-11.0)
[2017-03-28 20:22] LABS: BICARBONATE 22.7 MEQ/L (21.0-32.0); POTASSIUM 4.9 MEQ/L (3.5-5.1)
[2017-03-28] MEDS ORDERED: MUPI2OIN TOPICAL (20:32)
[2017-03-28] MEDS ORDERED: CEPH-460 PO (20:32)
[2017-03-28] MEDS ORDERED: CEPHALEXIN MONOHYDRATE 500 MG CAP PO ONE (20:45)
== END 2017-03-28 21:01 | disposition home or self-care (01) ==
LOC: NEPE 17:44
DX: L03.032 Cellulitis of left toe (principal); E11.65 Type 2 diabetes mellitus with hyperglycemia; E11.40 Type 2 diabetes mellitus with diabetic neuropathy, unspecified; I11.0 Hypertensive heart disease with heart failure; I50.9 Heart failure, unspecified; M19.90 Unspecified osteoarthritis, unspecified site; E78.00 Pure hypercholesterolemia, unspecified; I25.10 Atherosclerotic heart disease of native coronary artery without angina pectoris; Z23 Encounter for immunization
CPT/HCPCS: 73660; 80048; 85025; 86403; 87070; 87205; 90471; 90714

== ENCOUNTER 2017-08-03 08:57 | Observation (INO) | payer SELFPAY ==
[~2017-08-03] VITALS: Ht 165.1 cm; Wt 105.0 kg
[2017-08-03] VITALS (10 sets, daily range): BP systolic 135–192; BP diastolic 60–86; PULSE 71–85; RESP 16–20; TEMP 97.8–98.5; O2SAT 95–100
[~2017-08-03 08:57] MED LIST changes: -ASPI-516 CHEW; +CEPH-460 PO; +MUPI2OIN TOPICAL; -NIFE30TA61 PO; -PRIL20TA2
[2017-08-03] MEDS ORDERED: SODIUM CHLORIDE 0.9% FLUSH 10 ML FLUSH IVF PRN (09:15)
--- NOTE | 2017-08-03 09:39 | PD ---
HPI Chief Complaint: Chest Pain Time Seen by Provider: 09:27 Travel History International Travel<30 days: No Contact w/Intl Traveler<30days: No Traveled to known affect area: No History of Present Illness HPI Patient is a 47-year-old female with a history of three-way bypass surgery in 2012 presents emergency department with sharp left-sided chest pain. She states been going on for the past 3 days and waxing and waning. She thought it was bronchitis because her granddaughters been sick as well who lives she lives with. No fevers no shortness of breath no abdominal pain no nausea or vomiting. She states "it does not feel like a heart attack". PFSH Past Medical History Arthritis: Yes Blood Disorders: No Anxiety: Yes Depression: No Heart Rhythm Problems: No Cancer: No Cardiac Catheterization: Yes Cardiovascular Problems: Yes High Cholesterol: Yes Chest Pain: Yes Congestive Heart Failure: Yes Cerebrovascular Accident: No Coronary Artery Disease: Yes Diabetes: Yes Diminished Hearing: No GERD: Yes Headaches: Yes Hiatal Hernia: No Heparin Induced Thrombocytopen: No Hypertension: Yes Immune Disorder: No Kidney Stones: Yes Neurologic: No Psychiatric: Yes (PTSD) Reproductive: No Migraines: No Myocardial Infarction: Yes Sleep Apnea: Yes Thyroid Disease: No Triglycerides - High: Yes Ulcer: No ?: Not LMP: 2 MONTHS AGO : 3 Para: 2 Miscarriage: 1 Tubal Ligation: Yes (1991) Past Surgical History Cardiac Surgery: Yes (two heart caths) Coronary Artery Bypass Graft: Yes (CABG X 3 IN 2013) Eye Surgery: Yes (LASER SURGERY ON EYES) Social History Alcohol Use: Yes (RARE) Tobacco Use: No (QUIT APR 2013) Substance Use: No Allergies-Medications (Allergen,Severity, Reaction): Coded Allergies: escitalopram (Unverified Allergy, Severe, 03/28/17) pt " states it makes me rip my skin out" morphine (Unverified Allergy, Severe, "MAKES ME WANT TO RIP MY SKIN OFF", 03/28/17) promethazine (Unverified Allergy, Severe, "MAKES ME WANT TO RIP MY SKIN OFF", 03/28/17) Reported Meds & Prescriptions Reported Meds & Active Scripts Active Reported Latuda (Lurasidone) 80 Mg Tab 80 Mg PO HS Glipizide 5 Mg Tab 10 Mg PO BIDAC Take 30 minutes before a meal Janumet (Sitagliptin-Metformin) 50-1,000 Mg Tab 1 Tab PO BID Pravastatin 40 Mg Tab 40 Mg PO HS Metoprolol Tartrate 25 Mg Tab 25 Mg PO BID Lisinopril 2.5 Mg Tab 2.5 Mg PO DAILY Aspirin 325 Mg Tab 325 Mg PO DAILY Review of Systems Except as stated in HPI: all other systems reviewed are Neg Physical Exam Narrative GENERAL: Well-developed, obese, no obvious distress peer SKIN: Focused skin assessment warm/dry. HEAD: Atraumatic. Normocephalic. EYES: Pupils equal and round. No scleral icterus. No injection or drainage. ENT: No nasal bleeding or discharge. Mucous membranes pink and moist. NECK: Trachea midline. No JVD. CARDIOVASCULAR: Regular rate and rhythm. No murmur appreciated. RESPIRATORY: No accessory muscle use. Clear to auscultation. Breath sounds equal bilaterally. GASTROINTESTINAL: Abdomen soft, non-tender, nondistended. Hepatic and splenic margins not palpable. MUSCULOSKELETAL: No obvious deformities. No clubbing. No cyanosis. No edema. NEUROLOGICAL: Awake and alert. No obvious cranial nerve deficits. Motor grossly within normal limits. Normal speech. PSYCHIATRIC: Appropriate mood and affect; insight and judgment normal. Data Data Last Documented VS Vital Signs Date Time Temp Pulse Resp B/P (MAP) Pulse Ox O2 Delivery O2 Flow Rate FiO2 08/03/17 11:06 71 17 145/61 (89) 100 Room Air 08/03/17 09:05 98.5 Orders Orders Electrocardiogram (08/03/17 09:08) B-Type Natriuretic Peptide (08/03/17 09:08) Ckmb (Isoenzyme) Profile (08/03/17 09:08) Complete Blood Count With Diff (08/03/17 09:08) Comprehensive Metabolic Panel (08/03/17 09:08) Magnesium (Mg) (08/03/17 09:08) Prothrombin Time / Inr (Pt) (08/03/17 09:08) Act Partial Throm Time (Ptt) (08/03/17 09:08) Troponin I (08/03/17 09:08) Ecg Monitoring (08/03/17 09:08) Iv Access Insert/Monitor (08/03/17 09:08) Oximetry (08/03/17 09:08) Oxygen Administration (08/03/17 09:08) Sodium Chloride 0.9% Flush (Ns Flush) (08/03/17 09:15) Chest, Pa & Lat (08/03/17 ) CKMB (08/03/17 09:29) CKMB% (08/03/17 09:29) Insulin Human Regular Inj (Novolin R Inj (08/03/17 10:30) Insulin Human Regular Inj (Novolin R Inj (08/03/17 12:15) Admit Order (Ed Use Only) (08/03/17 ) Labs Laboratory Tests Test 08/03/17 09:29 White Blood Count 8.7 TH/MM3 Red Blood Count 3.71 MIL/MM3 Hemoglobin 10.3 GM/DL Hematocrit 30.8 % Mean Corpuscular Volume 82.9 FL Mean Corpuscular Hemoglobin 27.7 PG Mean Corpuscular Hemoglobin Concent 33.4 % Red Cell Distribution Width 13.9 % Platelet Count 376 TH/MM3 Mean Platelet Volume 9.9 FL Neutrophils (%) (Auto) 65.1 % Lymphocytes (%) (Auto) 26.1 % Monocytes (%) (Auto) 8.1 % Eosinophils (%) (Auto) 0.2 % Basophils (%) (Auto) 0.5 % Neutrophils # (Auto) 5.6 TH/MM3 Lymphocytes # (Auto) 2.3 TH/MM3 Monocytes # (Auto) 0.7 TH/MM3 Eosinophils # (Auto) 0.0 TH/MM3 Basophils # (Auto) 0.0 TH/MM3 CBC Comment DIFF FINAL Differential Comment Prothrombin Time 9.4 SEC Prothromb Time International Ratio 0.9 RATIO Activated Partial Thromboplast Time 23.8 SEC Blood Urea Nitrogen 21 MG/DL Creatinine 1.52 MG/DL Random Glucose 548 MG/DL Total Protein 7.2 GM/DL Albumin 2.5 GM/DL Calcium Level 8.1 MG/DL Magnesium Level 2.1 MG/DL Alkaline Phosphatase 88 U/L Aspartate Amino Transf (AST/SGOT) 59 U/L Alanine Aminotransferase (ALT/SGPT) 42 U/L Total Bilirubin 0.2 MG/DL Sodium Level 129 MEQ/L Potassium Level 5.1 MEQ/L Chloride Level 96 MEQ/L Carbon Dioxide Level 22.8 MEQ/L Anion Gap 10 MEQ/L Estimat Glomerular Filtration Rate 37 ML/MIN Total Creatine Kinase 150 U/L Creatine Kinase MB 3.3 NG/ML Troponin I LESS THAN 0.02 NG/ML B-Type Natriuretic Peptide 98 PG/ML MDM Medical Decision Making Medical Screen Exam Complete: Yes Emergency Medical Condition: Yes Differential Diagnosis Hyperglycemia, DKA unlikely, chest pain, ACS, anxiety. PE is excluded excluded by Wells and PERC criteria. Narrative Course Patient room to the emergency department, initial workup only significant for significantly elevated blood glucose, she took a total of 15 units of insulin to control her sugar, she appears calm and cooperative and agrees for chest pain center admission. Diagnosis Primary Impression: Atypical chest pain Admitting Information Admitting Physician Requests: Observation Condition: Stable Preet Lloyd MD Aug 03, 2017 09:39
[2017-08-03 09:49] LABS: AUTOMATED NEUTROPHIL # 5.6 TH/MM3 (1.8-7.7); BASOPHIL % 0.5 % (0.0-2.0); EOSINOPHIL % 0.2 % (0.0-4.0); HEMATOCRIT 30.8 % (35.0-46.0); HEMOGLOBIN 10.3 GM/DL (11.6-15.3); LYMPH % 26.1 % (9.0-44.0); LYMPHOCYTE # 2.3 TH/MM3 (1.0-4.8); MEAN CELL VOLUME 82.9 FL (80.0-100.0); MEAN CORPUSCULAR HEMOGLOBIN 27.7 PG (27.0-34.0); MEAN CORPUSCULAR HGB CONC 33.4 % (32.0-36.0); MEAN PLATELET VOLUME 9.9 FL (7.0-11.0); MONO % 8.1 % (0.0-8.0); MONOCYTE # 0.7 TH/MM3 (0-0.9); NEUT % 65.1 % (16.0-70.0); PLATELET COUNT 376 TH/MM3 (150-450); RED BLOOD COUNT 3.71 MIL/MM3 (4.00-5.30); RED CELL DISTRIBUTION WIDTH 13.9 % (11.6-17.2); WHITE BLOOD COUNT 8.7 TH/MM3 (4.0-11.0)
[2017-08-03 10:01] LABS: INTERNATIONAL NORMALIZED RATIO 0.9 RATIO; PROTHROMBIN TIME - PATIENT 9.4 SEC (9.8-11.6)
[2017-08-03 10:08] LABS: ALBUMIN 2.5 GM/DL (3.4-5.0); ALT (GPT) 42 U/L (10-53); AST (GOT) 59 U/L (15-37); BICARBONATE 22.8 MEQ/L (21.0-32.0); BLOOD UREA NITROGEN 21 MG/DL (7-18); CALCIUM 8.1 MG/DL (8.5-10.1); CHLORIDE 96 MEQ/L (98-107); CREATININE 1.52 MG/DL (0.50-1.00); GLOMERULAR FILTRATION RATE 37 ML/MIN (>89); MAGNESIUM 2.1 MG/DL (1.5-2.5); SODIUM (NA) 129 MEQ/L (136-145)
--- NOTE | 2017-08-03 10:08 | RADRPT ---
EXAM DATE/TIME: 08/03/2017 09:49 [facility] COMPARISON: CHEST PA & LAT, June 14, 2016, 23:04. INDICATIONS : Chest pain on left side and short of breath. MEDICAL HISTORY : Chronic obstructive pulmonary disease. Congestive heart failure. SURGICAL HISTORY : CABG. ENCOUNTER: Initial ACUITY: 2 days PAIN SCORE: 7/10 LOCATION: Left chest FINDINGS: PA and lateral views of the chest demonstrate the lungs to be symmetrically aerated without evidence of mass, infiltrate or effusion. Plain film findings characteristic of prior CABG with coronary ostia l rings are multiple surgical clips overlying the cardiac silhouette and median sternotomy wires. Deg enerative spurring of the dorsal spine. CONCLUSION: 1. Findings a prior CABG. 2. Otherwise negative. No acute cardiopulmonary process to explain current clinical symptoms. Harvey Walton MD on August 03, 2017 at 10:04 Board Certified Radiologist. This report was verified electronically.
[2017-08-03 10:13] LABS: ALKALINE PHOSPHATASE 88 U/L (45-117); TOTAL BILIRUBIN ADULT 0.2 MG/DL (0.2-1.0); TOTAL PROTEIN 7.2 GM/DL (6.4-8.2); TROPONIN I LESS THAN 0.02 NG/ML (0.02-0.05)
[2017-08-03 10:21] LABS: GLUCOSE,RANDOM 548 MG/DL (74-106)
[2017-08-03] MEDS ORDERED: INSULIN HUMAN REGULAR 1,000 UNITS/10 ML VIAL IV PUSH ONE ×2 (10:30→12:15)
[2017-08-03] MEDS ORDERED: SODIUM CHLOR 0.9% 1000 ML INJ 1,000 ML IV SCH (16:00)
[2017-08-03] MEDS ORDERED: GLUCAGON 1 MG/ML VIAL OTHER PRN (16:45)
[2017-08-03] MEDS ORDERED: DEXTROSE 50% IN WATER 50 ML VIAL(D50) IV PUSH PRN (16:45)
--- NOTE | 2017-08-03 16:50 | HHI.HP ---
HPI Primary Care Physician Diane Rodriguez DO Chief Complaint Chest pain History of Present Illness This is a 47-year-old female with history of CAD with a three-vessel bypass in 2012 the presents to ED to be evaluated for chest discomfort. Patient states that she has been having left-sided chest discomfort intermittently for 2 days. She describes as a stabbing pain will last about a minute. Nothing in particular brings it on. She found nothing to worsen or improve when she has it. Has had no shortness of breath, nausea, or diaphoresis. States it is not similar to when she had an ND 2012. Denies recent illness. Denies fevers or chills. Her glucose was 548 upon arrival in the ED. Upon further discussing this. Patient apparently has had poorly controlled diabetes. She states the reason that her sugar so high is because she ate a bunch of jelly beans last evening and had a soda this morning. However the last time she checked her blood sugar was over a month ago at home and it was over 500 and at that point she decided she was just not going to check anymore. She is not followed by geological technical officer at this time. Upon reviewing records her last stress test was June 2016 and was nonischemic with an EF of 59%. Review of Systems General: Patient denies fevers, chills, and recent travel. HEENT: Patient denies headache, sore throat, difficulty swallowing. Cardiovascular: Has the chest discomfort as mentioned above. Denies sensation of heart beating rapidly or irregularly. No syncope. Denies diaphoresis. Respiratory: Denies shortness of breath or inspirational chest discomfort. Denies coughing wheezing or hemoptysis. GI: Patient denies nausea, vomiting, diarrhea, abdominal pain, bloody stools. Musculoskeletal: Patient denies joint pain or edema. Denies calf pain or edema. Neurovascular: Patient denies numbness, tingling, weakness in extremities. Denies headache. Endocrine: Denies polyuria and polydipsia. Hematologic: Denies easy bruising. Skin: Denies rash or itching. Past Family Social History Allergies: Coded Allergies: escitalopram (Unverified Allergy, Severe, 03/28/17) pt " states it makes me rip my skin out" morphine (Unverified Allergy, Severe, "MAKES ME WANT TO RIP MY SKIN OFF", 03/28/17) promethazine (Unverified Allergy, Severe, "MAKES ME WANT TO RIP MY SKIN OFF", 03/28/17) Past Medical History CAD with a three-vessel bypass in 2012. Diabetes which is poorly controlled. Hypertension, hyperlipidemia, bipolar disorder. Past Surgical History Three-vessel bypass in 2013. Tubal ligation. Heart catheterization without intervention that led to bypass in 2012. Reported Medications Reported Meds & Active Scripts Active Reported Latuda (Lurasidone) 80 Mg Tab 80 Mg PO HS Glipizide 5 Mg Tab 10 Mg PO BIDAC Take 30 minutes before a meal Janumet (Sitagliptin-Metformin) 50-1,000 Mg Tab 1 Tab PO BID Pravastatin 40 Mg Tab 40 Mg PO HS Metoprolol Tartrate 25 Mg Tab 25 Mg PO BID Lisinopril 2.5 Mg Tab 2.5 Mg PO DAILY Aspirin 325 Mg Tab 325 Mg PO DAILY Active Ordered Medications Current Medications Medications (Trade) Dose Ordered Sig/Jonas Route Start Time Stop Time Status Last Admin (NS Flush) 2 ml UNSCH PRN IVF 08/03/17 09:15 Sodium Chloride 1,000 ml @ 125 mls/hr Q8H IV 08/03/17 16:00 08/03/17 23:59 08/03/17 15:57 (Tylenol) 500 mg Q4H PRN PO 08/03/17 16:45 UNV (Zofran Inj) 4 mg Q6H PRN IV PUSH 08/03/17 16:45 UNV (Xanax) 0.25 mg Q8H PRN PO 08/03/17 16:45 UNV (NovoLOG SUPPLEMENTAL SCALE) 1 ACHS SLIDING SCALE SQ 08/03/17 17:00 UNV (D50w (Vial) Inj) 50 ml UNSCH PRN IV PUSH 08/03/17 16:45 UNV (Glucagon Inj) 1 mg UNSCH PRN OTHER 08/03/17 16:45 UNV Family History Both parents have CAD. Social History Quit smoking in 2012. Prior to that she smoked 1/2-1 pack a series daily for 30 years. Rarely has alcohol. Denies illicit drugs. Physical Exam Vital Signs Vital Signs Date Time Temp Pulse Resp B/P (MAP) Pulse Ox O2 Delivery O2 Flow Rate FiO2 08/03/17 14:26 98.3 85 16 192/84 (120) 98 Room Air 08/03/17 11:06 71 17 145/61 (89) 100 Room Air 08/03/17 09:56 75 17 192/86 (121) 99 Room Air 08/03/17 09:05 98.5 80 20 160/72 (101) 100 Physical Exam GENERAL: This is a well-nourished, well-developed patient, in no apparent distress. Patient speaks in clear complete sentences. Patient is pleasant. HEENT: Head is atraumatic and normocephalic. Neck is supple without lymphadenopathy and trachea is midline. No JVD or carotid bruits. CARDIOVASCULAR: Regular rate and rhythm without murmurs, gallops, or rubs. RESPIRATORY: Clear to auscultation. Breath sounds equal bilaterally. No wheezes , rales, or rhonchi. Chest wall is tender. No use of accessory muscles. GASTROINTESTINAL: Abdomen is nontender, nondistended. Abdomen soft. No obvious pulsatile mass or bruit. No CVA tenderness. Strong femoral pulses bilaterally. Normal bowel sounds in all quadrants. MUSCULOSKELETAL: Patient is moving upper and lower extremities freely. No calf tenderness or edema, no Homans sign. Strong pulses in upper and lower extremities. NEUROLOGICAL: Patient is alert and oriented. Cranial nerves 2-12 are grossly intact. No focal deficits and speech is clear. SKIN: No rash and turgor is normal. Laboratory Laboratory Tests Test 08/03/17 09:29 White Blood Count 8.7 Red Blood Count 3.71 Hemoglobin 10.3 Hematocrit 30.8 Mean Corpuscular Volume 82.9 Mean Corpuscular Hemoglobin 27.7 Mean Corpuscular Hemoglobin Concent 33.4 Red Cell Distribution Width 13.9 Platelet Count 376 Mean Platelet Volume 9.9 Neutrophils (%) (Auto) 65.1 Lymphocytes (%) (Auto) 26.1 Monocytes (%) (Auto) 8.1 Eosinophils (%) (Auto) 0.2 Basophils (%) (Auto) 0.5 Neutrophils # (Auto) 5.6 Lymphocytes # (Auto) 2.3 Monocytes # (Auto) 0.7 Eosinophils # (Auto) 0.0 Basophils # (Auto) 0.0 CBC Comment DIFF FINAL Differential Comment Prothrombin Time 9.4 Prothromb Time International Ratio 0.9 Activated Partial Thromboplast Time 23.8 Blood Urea Nitrogen 21 Creatinine 1.52 Random Glucose 548 Total Protein 7.2 Albumin 2.5 Calcium Level 8.1 Magnesium Level 2.1 Alkaline Phosphatase 88 Aspartate Amino Transf (AST/SGOT) 59 Alanine Aminotransferase (ALT/SGPT) 42 Total Bilirubin 0.2 Sodium Level 129 Potassium Level 5.1 Chloride Level 96 Carbon Dioxide Level 22.8 Anion Gap 10 Estimat Glomerular Filtration Rate 37 Total Creatine Kinase 150 Creatine Kinase MB 3.3 Troponin I LESS THAN 0.02 B-Type Natriuretic Peptide 98 Result Diagram: 08/03/17 0929 08/03/17 0929 Imaging Last 48 hours Impressions Chest X-Ray 08/03/17 0000 Signed Impressions: Service Date/Time: Thursday, August 03, 2017 09:49 - CONCLUSION: 1. Findings a prior CABG. 2. Otherwise negative. No acute cardiopulmonary process to explain current clinical symptoms. Harvey Walton MD Course Initial EKG is sinus rhythm without significant ST segment depressions or elevations. Caprini VTE Risk Assessment Caprini VTE Risk Assessment: No/Low Risk (score <= 1) Caprini Risk Assessment Model Point Value = 1 Point Value = 2 Point Value = 3 Point Value = 5 Age 41-60 Minor surgery BMI > 25 kg/m2 Swollen legs Varicose veins or History of unexplained or recurrent spontaneous Oral contraceptives or hormone replacement Sepsis (< 1 month) Serious lung disease, including pneumonia (< 1 month) Abnormal pulmonary function Acute myocardial infarction Congestive heart failure (< 1 month) History of inflammatory bowel disease Medical patient at bed rest Age 61-74 Arthroscopic surgery Major open surgery (> 45 min) Laparoscopic surgery (> 45 min) Malignancy Confined to bed (> 72 hours) Immobilizing plaster cast Central venous access Age >= 75 History of VTE Family history of VTE Factor V Leiden Prothrombin [id number] Lupus anticoagulant Anticardiolipin antibodies Elevated serum homocysteine Heparin-induced thrombocytopenia Other congenital or acquired thrombophilia Stroke (< 1 month) Elective arthroplasty Hip, pelvis, or leg fracture Acute spinal cord injury (< 1 month) Prophylaxis Regimen Total Risk Factor Score Risk Level Prophylaxis Regimen 0-1 Low Early ambulation 2 Moderate Order ONE of the following: *Sequential Compression Device (SCD) *Heparin 5000 units SQ BID 3-4 Higher Order ONE of the following medications: *Heparin 5000 units SQ TID *Enoxaparin/Lovenox 40 mg SQ daily (WT < 150 kg, CrCl > 30 mL/min) *Enoxaparin/Lovenox 30 mg SQ daily (WT < 150 kg, CrCl > 10-29 mL/min) *Enoxaparin/Lovenox 30 mg SQ BID (WT < 150 kg, CrCl > 30 mL/min) AND/OR *Sequential Compression Device (SCD) 5 or more Highest Order ONE of the following medications: *Heparin 5000 units SQ TID (Preferred with Epidurals) *Enoxaparin/Lovenox 40 mg SQ daily (WT < 150 kg, CrCl > 30 mL/min) *Enoxaparin/Lovenox 30 mg SQ daily (WT < 150 kg, CrCl > 10-29 mL/min) *Enoxaparin/Lovenox 30 mg SQ BID (WT < 150 kg, CrCl > 30 mL/min) AND *Sequential Compression Device (SCD) Assessment and Plan Assessment and Plan * Chest pain: Her symptoms appear atypical. Not similar to when she had an ND in 2013. Chest pain is reproducible while palpating left chest wall. Patient does however have multiple risk factors including uncontrolled diabetes and prior CABG. She is seen by Dr. Shun Paredes of cardiology in the chest pain center. She will have a Lexiscan in the morning if she rules out. At that point she be discharged home if her stress test is nonischemic with instructions to follow-up with PCP. Return to ED for interval issues. * Diabetes: Her diabetes is not controlled well. Admits to not following a diabetic diet. Her glucose was 548 upon arrival in the ED. After getting 2 doses of insulin her blood sugar was then 309. Patient will be on sliding scale insulin coverage while in chest pain center. She will be on diabetic diet. She will be encouraged to follow a diabetic diet on discharge and take her medications as instructed and to monitor her blood sugars regularly, keep a journal of the results, and follow-up with her PCP to discuss further treatment of that. * CAD: This will be reassessed with stress testing. Resume medications. She will need to make arrangements to follow-up outpatient cardiology. * Hypertension: Continue medication. * Renal insufficiency: Patient will be given IV hydration, will get a repeat BMP in the morning. Patient will have this followed up with PCP. * Hyperlipidemia: Continue medication. * Bipolar disorder: Continue medication. Patient is stable at this time. She is agreeable to this plan. Humberto Flores Aug 03, 2017 16:50
[2017-08-03] MEDS ORDERED: PILL SPLITTER OTHER PRN (17:00)
[2017-08-03] MEDS ORDERED: ONDANSETRON HCL 4 MG/2 ML VIAL IV PUSH PRN (17:00)
[2017-08-03] MEDS ORDERED: ALPRAZolam 0.25 MG TAB PO PRN (17:00)
[2017-08-03] MEDS ORDERED: ACETAMINOPHEN 500 MG CPLT PO PRN (17:00)
[2017-08-03 18:09] LABS: TROPONIN I LESS THAN 0.02 NG/ML (0.02-0.05)
[2017-08-03] MEDS: INSULIN ASPART SUPPLEMENTAL SCALE SQ SCH ×2 (18:35→22:58)
[2017-08-03] MEDS ORDERED: PRAVASTATIN SOD 40 MG TAB PO SCH (21:00)
[2017-08-03] MEDS ORDERED: LURASIDONE 80 MG TAB PO SCH (21:00)
[2017-08-03] MEDS ORDERED: GABA300C5 PO (21:52)
[2017-08-03] MEDS: METOPROLOL TARTRATE 25 MG TAB PO SCH (21:52)
[2017-08-03 22:50] LABS: BICARBONATE 25.3 MEQ/L (21.0-32.0); BLOOD UREA NITROGEN 26 MG/DL (7-18); CALCIUM 7.8 MG/DL (8.5-10.1); CHLORIDE 99 MEQ/L (98-107); CREATININE 1.25 MG/DL (0.50-1.00); GLOMERULAR FILTRATION RATE 46 ML/MIN (>89); GLUCOSE,RANDOM 357 MG/DL (74-106); SODIUM (NA) 133 MEQ/L (136-145); TROPONIN I LESS THAN 0.02 NG/ML (0.02-0.05)
[2017-08-04 02:30] VITALS: BP 115/56; PULSE 71; RESP 18; TEMP 97.8; O2SAT 95
[2017-08-04 04:00] VITALS: PULSE 66
[2017-08-04 07:11] VITALS: BP 138/61; PULSE 70; RESP 18; TEMP 98.9; O2SAT 95
--- NOTE | 2017-08-04 08:07 | PD.CARD.PN ---
Subjective Subjective Remarks No chest pain overnight. Verbalize frustration being admitted to chest pain center. Stating "I came the ER due to shortness of breath." Endorses known sleep apnea, using CPAP approximately "50% of the time due to my anxiety." Apparently she wakes each night multiple times "gasping for breath." Does not follow with a bootmaker hand and has not notified her PCP regarding this. Objective Medications Current Medications Medications (Trade) Dose Ordered Sig/Jonas Route Start Time Stop Time Status Last Admin (NS Flush) 2 ml UNSCH PRN IVF 08/03/17 09:15 (Tylenol) 500 mg Q4H PRN PO 08/03/17 17:00 (Zofran Inj) 4 mg Q6H PRN IV PUSH 08/03/17 17:00 (Xanax) 0.25 mg Q8H PRN PO 08/03/17 17:00 (NovoLOG SUPPLEMENTAL SCALE) 1 ACHS SLIDING SCALE SQ 08/03/17 17:00 08/03/17 22:58 (D50w (Vial) Inj) 50 ml UNSCH PRN IV PUSH 08/03/17 16:45 (Glucagon Inj) 1 mg UNSCH PRN OTHER 08/03/17 16:45 (Latuda) 80 mg HS PO 08/03/17 21:00 08/03/17 22:57 (Lopressor) 25 mg BID PO 08/03/17 21:00 08/03/17 21:52 (Pravachol) 40 mg HS PO 08/03/17 21:00 08/03/17 21:52 (Prinivil) 2.5 mg DAILY PO 08/04/17 09:00 (Aspirin) 325 mg DAILY PO 08/04/17 09:00 (Pill Splitter) 1 ea UNSCH PRN OTHER 08/03/17 17:00 Vital Signs / I&O Vital Signs Date Time Temp Pulse Resp B/P (MAP) Pulse Ox O2 Delivery O2 Flow Rate FiO2 08/04/17 07:11 98.9 70 18 138/61 (86) 95 08/04/17 04:00 66 08/04/17 02:30 97.8 71 18 115/56 (75) 95 08/03/17 23:50 76 08/03/17 21:42 99 21 08/03/17 21:21 98.4 75 18 135/65 (88) 97 08/03/17 19:15 73 08/03/17 18:00 97.8 79 16 180/70 (106) 95 08/03/17 17:37 08/03/17 17:10 75 16 160/60 (93) 98 Room Air 08/03/17 14:26 98.3 85 16 192/84 (120) 98 Room Air 08/03/17 11:06 71 17 145/61 (89) 100 Room Air 08/03/17 09:56 75 17 192/86 (121) 99 Room Air 08/03/17 09:05 98.5 80 20 160/72 (101) 100 I/O 08/03/17 08/03/17 08/03/17 08/04/17 08/04/17 08/04/17 07:00 15:00 23:00 07:00 15:00 23:00 Intake Total 200 ml Balance 200 ml Intake IV Total 200 ml # Voids 2 Physical Exam GENERAL: Alert WN, WD, NAD, pleasant, moderately obese, female who appears older than stated age HEAD: NC, AT CV: RRR, without murmur, rub, gallop, no JVD, S1-S2 no S3-S4. RESP: Clear lungs throughout bilateral, no crackles, wheeze, rhonchi, symmetrical chest rise, nonlabored, able to speak in full sentences MS: Normal tone x4 extremities, no obvious deformities, full range of motion NEURO: CN II through CN XII grossly intact, motor strength 5/5 PSYCH: A+O -3, pleasant affect, appropriate speech, mood, insight and judgment SKIN: Normal turgor, normal texture Laboratory Laboratory Tests Test 08/03/17 09:29 08/03/17 17:15 08/03/17 20:40 White Blood Count 8.7 TH/MM3 Red Blood Count 3.71 MIL/MM3 Hemoglobin 10.3 GM/DL Hematocrit 30.8 % Mean Corpuscular Volume 82.9 FL Mean Corpuscular Hemoglobin 27.7 PG Mean Corpuscular Hemoglobin Concent 33.4 % Red Cell Distribution Width 13.9 % Platelet Count 376 TH/MM3 Mean Platelet Volume 9.9 FL Neutrophils (%) (Auto) 65.1 % Lymphocytes (%) (Auto) 26.1 % Monocytes (%) (Auto) 8.1 % Eosinophils (%) (Auto) 0.2 % Basophils (%) (Auto) 0.5 % Neutrophils # (Auto) 5.6 TH/MM3 Lymphocytes # (Auto) 2.3 TH/MM3 Monocytes # (Auto) 0.7 TH/MM3 Eosinophils # (Auto) 0.0 TH/MM3 Basophils # (Auto) 0.0 TH/MM3 CBC Comment DIFF FINAL Differential Comment Prothrombin Time 9.4 SEC Prothromb Time International Ratio 0.9 RATIO Activated Partial Thromboplast Time 23.8 SEC Blood Urea Nitrogen 21 MG/DL 26 MG/DL Creatinine 1.52 MG/DL 1.25 MG/DL Random Glucose 548 MG/DL 357 MG/DL Total Protein 7.2 GM/DL Albumin 2.5 GM/DL Calcium Level 8.1 MG/DL 7.8 MG/DL Magnesium Level 2.1 MG/DL Alkaline Phosphatase 88 U/L Aspartate Amino Transf (AST/SGOT) 59 U/L Alanine Aminotransferase (ALT/SGPT) 42 U/L Total Bilirubin 0.2 MG/DL Sodium Level 129 MEQ/L 133 MEQ/L Potassium Level 5.1 MEQ/L 4.4 MEQ/L Chloride Level 96 MEQ/L 99 MEQ/L Carbon Dioxide Level 22.8 MEQ/L 25.3 MEQ/L Anion Gap 10 MEQ/L 9 MEQ/L Estimat Glomerular Filtration Rate 37 ML/MIN 46 ML/MIN Total Creatine Kinase 150 U/L 104 U/L 93 U/L Creatine Kinase MB 3.3 NG/ML 2.5 NG/ML Troponin I LESS THAN 0.02 NG/ML LESS THAN 0.02 NG/ML LESS THAN 0.02 NG/ML B-Type Natriuretic Peptide 98 PG/ML Assessment and Plan Assessment and Plan #1 Chest pain-chest pain center. Seen and evaluated by Dr. Shun Paredes previously. Ruled out with 3 sets of EKGs, cardiac enzymes, and monitor on telemetry overnight. Proceed with Lexiscan this morning. If unremarkable, plans to discharge home with follow-up with her PCP. #2 History of sleep apnea-strongly encouraged follow-up with her PCP to assist her anxiety wearing CPAP mask. Discussed she may benefit from with a referral for a bootmaker hand. #3 History to type II diabetes-continue sliding scale insulin coverage, encouraged dietary changes and close follow up with her PCP. Catie Ruiz Aug 04, 2017 08:06
[2017-08-04 08:13] VITALS: O2SAT 98
[2017-08-04] MEDS: INSULIN ASPART SUPPLEMENTAL SCALE SQ SCH ×2 (08:45→14:36)
[2017-08-04] MEDS ORDERED: ASPIRIN 325 MG TAB PO SCH (09:00)
[2017-08-04] MEDS ORDERED: LISINOPRIL 5 MG TAB PO SCH (09:00)
[2017-08-04] MEDS: METOPROLOL TARTRATE 25 MG TAB PO SCH (09:08)
[2017-08-04] MEDS ORDERED: REGADENOSON INJ 0.4 MG/5 ML SYR ONE (11:21)
--- NOTE | 2017-08-04 12:42 | RADRPT ---
EXAM DATE/TIME: 08/04/2017 10:52 [facility] COMPARISON: MYOCARDIAL PERF PHARM SPECT, GATED W/EF, June 15, 2016, 10:25. INDICATIONS : Left sided chest pain. Angina. Coronary artery disease. DOSE: 35.0 mCi Tc99m Myoview at stress. 11.0 mCi Tc99m Myoview at rest. 0.4 mg Lexiscan STRESS SYMPTOMS: Shortness of breath. EJECTION FRACTION: 48% (prior ejection fraction on 06/15/16 was 59% and in 11/03/13 was 63%). MEDICAL HISTORY : Hypertension. Diabetes mellitus type 2. Myocardial infarction. SURGICAL HISTORY : Tubal ligation. CABG ENCOUNTER: Initial ACUITY: 2 days PAIN SCALE: 5/10 LOCATION: Left chest TECHNIQUE: The patient underwent pharmacologic stress with infusion of prescribed dose. Continuous ECG tracing was monitored during stress. Gated SPECT imaging was performed after stress and conventional SPECT i maging was performed at rest. The examination was performed on a SPECT/CT scanner, both attenuation and non-corrected datasets were reviewed. FINDINGS: DISTRIBUTION: The maximum perfused segment at stress is in the lateral wall. PERFUSION STUDY: Regional variations of perfusion between the various myocardial segments are within 35%. There is dec reased activity in the apex on both the stress and rest images; review of raw data demonstrates signi ficant breast attenuation and the decrease of activity in the region of the apex is probably partiall y related to differential attenuation effects. There is no evidence of redistribution. GATED STUDY: There is intact wall motion and thickening without hypokinetic or dyskinetic segments. The calculated ejection fraction has decreased significantly since prior myocardial perfusion scan. CONCLUSION: 1. No evidence of stress-induced ischemia. There is decreased activity in the apex on both stress and rest images which could represent apical thinning or be related to breast attenuation effects. 2. No focal wall motion abnormalities seen, however, there has been a progressive decrease in ejectio n fraction over serial scans in 2016 and 2013. Today's ejection fraction is 48%. RISK CATEGORY: Intermediate (1-3% Annual Mortality Rate) Ji Griffith MD on August 04, 2017 at 12:35 Board Certified Radiologist. This report was verified electronically.
--- NOTE | 2017-08-04 13:11 | HHI.DCPOC ---
Discharge Care Plan Diagnosis: (1) Atypical chest pain (2) Type 2 diabetes mellitus (3) Hyperlipidemia (4) HTN (hypertension) Goals to Promote Your Health * To prevent worsening of your condition and complications * To maintain your health at the optimal level Directions to Meet Your Goals Take your medications as prescribed Follow your dietary instruction Follow activity as directed Keep your appointments as scheduled Take your immunizations and boosters as scheduled If your symptoms worsen call your PCP, if no PCP go to Urgent Care Center or Emergency Room Smoking is Dangerous to Your Health. Avoid second hand smoke Call the 24-hour hour crisis hotline for domestic abuse at Catie RuizP Aug 04, 2017 13:11
--- NOTE | 2017-08-04 13:15 | HHI.DS ---
Discharge Summary Admission Date Aug 03, 2017 at 14:20 Discharge Date: Aug 04, 2017 Admitting Diagnosis Chest Pain Procedures Last 48 hours Impressions Myocardial Perfusion Scan Nuc Med 08/04/17 0000 Signed Impressions: Service Date/Time: Friday, August 04, 2017 10:52 - CONCLUSION: 1. No evidence of stress-induced ischemia. There is decreased activity in the apex on both stress and rest images which could represent apical thinning or be related to breast attenuation effects. 2. No focal wall motion abnormalities seen, however , there has been a progressive decrease in ejection fraction over serial scans in 2016 and 2013. Today's ejection fraction is 48%%. RISK CATEGORY: Intermediate (1-3%% Annual Mortality Rate) Ji Griffith MD Chest X-Ray 08/03/17 0000 Signed Impressions: Service Date/Time: Thursday, August 03, 2017 09:49 - CONCLUSION: 1. Findings a prior CABG. 2. Otherwise negative. No acute cardiopulmonary process to explain current clinical symptoms. Harvey Walton MD Brief History 47-year-old female with history of coronary artery disease, CABG 3 presents to the emergency room for further evaluation of chest discomfort. Negative chest pain center. We will do with recent EKGs, cardiac enzymes, and seen by chest pain center uptwister tender. Proceeded with chemical cardiac testing. No stress- induced ischemia identified, decreased ejection fraction noted. This been discussed with patient and she was encouraged to follow-up with her PCP and establish with a local uptwister tender. CBC/BMP: 08/03/17 0929 08/03/17 2040 Significant Findings Laboratory Tests Test 08/03/17 09:29 08/03/17 17:15 08/03/17 20:40 Red Blood Count 3.71 MIL/MM3 (4.00-5.30) Hemoglobin 10.3 GM/DL (11.6-15.3) Hematocrit 30.8 % (35.0-46.0) Monocytes (%) (Auto) 8.1 % (0.0-8.0) Prothrombin Time 9.4 SEC (9.8-11.6) Activated Partial Thromboplast Time 23.8 SEC (24.3-30.1) Blood Urea Nitrogen 21 MG/DL (7-18) 26 MG/DL (7-18) Creatinine 1.52 MG/DL (0.50-1.00) 1.25 MG/DL (0.50-1.00) Random Glucose 548 MG/DL (74-106) 357 MG/DL (74-106) Albumin 2.5 GM/DL (3.4-5.0) Calcium Level 8.1 MG/DL (8.5-10.1) 7.8 MG/DL (8.5-10.1) Aspartate Amino Transf (AST/SGOT) 59 U/L (15-37) Sodium Level 129 MEQ/L (136-145) 133 MEQ/L (136-145) Chloride Level 96 MEQ/L (98-107) Estimat Glomerular Filtration Rate 37 ML/MIN (>89) 46 ML/MIN (>89) Troponin I LESS THAN 0.02 NG/ML LESS THAN 0.02 NG/ML LESS THAN 0.02 NG/ML Pt Condition on Discharge: Good Discharge Disposition: Discharge Home Discharge Instructions DIET: Follow Instructions for: Heart Healthy Diet, Diabetic Diet Activities you can perform: Regular-No Restrictions Catie Ruiz Aug 04, 2017 13:15
--- NOTE | 2017-08-04 17:31 | TR ---
Date Performed: 08/04/2017 Time Performed: 11:21:19 DOCTOR: Lexy Knutson DRUG LIST: ASA CATAPRES [id number] METAPROLOL CLINICAL HISTORY: HTN CABG ANGINA DIABETES CHEST PAIN CHEST PAIN REASON FOR TEST: Angina REASON FOR ENDING: OBSERVATION: CONCLUSION: Lexiscan stress test was performed under standard four minute protocol. Radionuclid e was injected one minute prior to ending the test. No electrocardiographic abormalities were present to suggest ischemia. Nuclear imaging and interpretation are pending. COMMENTS:
--- NOTE | 2017-08-04 17:36 | EKG ---
Date Performed: 08/03/2017 Time Performed: 21:27:51 PTAGE: 47 years EKG: Sinus rhythm NONSPECIFIC T-WAVE ABNORMALITY BORDERLINE ECG Since PREVIOUS TRACING , no significant change noted PREVIOUS TRACIN08/03/2017 17.17 DOCTOR: Lexy Knutson Interpretating Date/Time 08/04/2017 17:35:29
--- NOTE | 2017-08-04 17:37 | EKG ---
Date Performed: 08/03/2017 Time Performed: 17:17:25 PTAGE: 47 years EKG: Sinus rhythm NONSPECIFIC T-WAVE ABNORMALITY BORDERLINE ECG Since PREVIOUS TRACING , no significant change noted PREVIOUS TRACIN08/03/2017 09.20 DOCTOR: Lexy Knutson Interpretating Date/Time 08/04/2017 17:36:10
--- NOTE | 2017-08-04 17:40 | EKG ---
Date Performed: 08/03/2017 Time Performed: 09:20:38 PTAGE: 47 years EKG: Sinus rhythm NORMAL ECG Since PREVIOUS TRACING , no significant change noted PREVIOUS TRACIN01/31/2017 21.48 DOCTOR: Lexy Knutson Interpretating Date/Time 08/04/2017 17:38:23
== END 2017-08-04 16:16 | disposition home or self-care (01) ==
LOC: NEPC 08:57 → NEDA 14:20 → NEPGCP 17:51
PROVIDERS: ADMIT Internal Medicine Cardiovascular Disease; ATTEND Internal Medicine Cardiovascular Disease
DX: R07.89 Other chest pain (principal); E11.65 Type 2 diabetes mellitus with hyperglycemia; E78.5 Hyperlipidemia, unspecified; I11.0 Hypertensive heart disease with heart failure; I50.9 Heart failure, unspecified; G47.30 Sleep apnea, unspecified; N28.9 Disorder of kidney and ureter, unspecified; R06.02 Shortness of breath; I25.10 Atherosclerotic heart disease of native coronary artery without angina pectoris; E78.00 Pure hypercholesterolemia, unspecified; F31.9 Bipolar disorder, unspecified; F43.10 Post-traumatic stress disorder, unspecified; Z99.81 Dependence on supplemental oxygen; Z95.1 Presence of aortocoronary bypass graft
CPT/HCPCS: 71046; 78452; 80053; 82550; 82552; 82948; 83735; 83880; 84484; 85025; 85610; 85730; 93005; 93017; 96361; 96372; 96374; 96376; 99285; A9502; G0378; J1815; J2785; J7030; 80048

== ENCOUNTER 2017-08-08 16:31 | Observation (INO) | payer SELFPAY ==
[~2017-08-08] VITALS: Ht 175.3 cm; Wt 105.5 kg
[~2017-08-08 16:31] MED LIST changes: -CEPH-460 PO; +GABA300C5 PO; -MECL-62 PO; -MUPI2OIN TOPICAL; -VENL100T PO
[2017-08-08 16:43] VITALS: BP 135/61; PULSE 80; RESP 20; TEMP 98; O2SAT 99
[2017-08-08 18:50] VITALS: BP 189/95; PULSE 76; RESP 19; O2SAT 99
[2017-08-08] MEDS ORDERED: SODIUM CHLORIDE 0.9% FLUSH 10 ML FLUSH IVF PRN (19:00)
[2017-08-08 19:09] VITALS: RESP 25; O2SAT 98
[2017-08-08 19:13] LABS: AUTOMATED NEUTROPHIL # 8.8 TH/MM3 (1.8-7.7); BASOPHIL # 0.1 TH/MM3 (0-0.2); BASOPHIL % 0.5 % (0.0-2.0); EOSINOPHIL % 0.4 % (0.0-4.0); HEMATOCRIT 30.7 % (35.0-46.0); LYMPH % 17.5 % (9.0-44.0); LYMPHOCYTE # 2.1 TH/MM3 (1.0-4.8); MEAN CELL VOLUME 83.1 FL (80.0-100.0); MEAN CORPUSCULAR HGB CONC 32.5 % (32.0-36.0); MEAN PLATELET VOLUME 10.1 FL (7.0-11.0); MONO % 6.6 % (0.0-8.0); MONOCYTE # 0.8 TH/MM3 (0-0.9); PLATELET COUNT 338 TH/MM3 (150-450); RED BLOOD COUNT 3.69 MIL/MM3 (4.00-5.30); WHITE BLOOD COUNT 11.8 TH/MM3 (4.0-11.0)
--- NOTE | 2017-08-08 19:25 | RADRPT ---
EXAM DATE/TIME: 08/08/2017 19:00 [facility] COMPARISON: CHEST SINGLE AP, January 31, 2017, 22:13. INDICATIONS : Shortness of breath. MEDICAL HISTORY : Chronic obstructive pulmonary disease. Congestive heart failure. SURGICAL HISTORY : CABG. ENCOUNTER: Subsequent ACUITY: 1 day PAIN SCORE: 0/10 LOCATION: chest FINDINGS: The patient is status post sternotomy. The heart size is normal. The lungs are clear. CONCLUSION: No acute disease. Aleksander Katz MD on August 08, 2017 at 19:22 Board Certified Radiologist. This report was verified electronically.
--- NOTE | 2017-08-08 19:52 | PD ---
HPI Chief Complaint: Edema Time Seen by Provider: 18:34 Travel History International Travel<30 days: No Contact w/Intl Traveler<30days: No Traveled to known affect area: No History of Present Illness HPI 47-year-old woman presents to the emergency department complaining of shortness of breath, orthopnea, lower extremity edema, weight gain. Is ongoing since he left the hospital just recently. She recently had a stress test that did not show any focal ischemia but did show a decreased EF. She denies a history of CHF. History Past Medical History Narrative Medical CAD, history CABG in 2013 Diabetes Hypertension Hyperlipidemia : 3 Para: 2 Social History Alcohol Use: Yes (RARE) Tobacco Use: No (QUIT APR 2013) Allergies-Medications (Allergen,Severity, Reaction): Coded Allergies: escitalopram (Verified Allergy, Severe, 08/08/17) pt " states it makes me rip my skin out" morphine (Verified Allergy, Severe, "MAKES ME WANT TO RIP MY SKIN OFF", 08/08/17) promethazine (Verified Allergy, Severe, "MAKES ME WANT TO RIP MY SKIN OFF ", 08/08/17) Reported Meds & Prescriptions Reported Meds & Active Scripts Active Reported Gabapentin 300 Mg Cap 300 Mg PO BID Latuda (Lurasidone) 80 Mg Tab 80 Mg PO HS Glipizide 5 Mg Tab 10 Mg PO BIDAC Take 30 minutes before a meal Janumet (Sitagliptin-Metformin) 50-1,000 Mg Tab 1 Tab PO BID Pravastatin 40 Mg Tab 40 Mg PO HS Metoprolol Tartrate 25 Mg Tab 25 Mg PO BID Lisinopril 2.5 Mg Tab 2.5 Mg PO DAILY Aspirin 325 Mg Tab 325 Mg PO DAILY Review of Systems Except as stated in HPI: all other systems reviewed are Neg Physical Exam Narrative GENERAL: Obese 47-year-old woman, no acute distress. SKIN: Focused skin assessment warm/dry. HEAD: Atraumatic. Normocephalic. EYES: Pupils equal and round. No scleral icterus. No injection or drainage. ENT: No nasal bleeding or discharge. Mucous membranes pink and moist. NECK: Trachea midline. No JVD. CARDIOVASCULAR: Regular rate and rhythm. No murmur appreciated. RESPIRATORY: No respiratory distress. His rales in the bases. GASTROINTESTINAL: Abdomen soft, non-tender, nondistended. Hepatic and splenic margins not palpable. MUSCULOSKELETAL: Pitting edema bilateral lower extremities. NEUROLOGICAL: Awake and alert. No obvious cranial nerve deficits. Motor grossly within normal limits. Normal speech. PSYCHIATRIC: Appropriate mood and affect; insight and judgment normal. Data Data Last Documented VS Vital Signs Date Time Temp Pulse Resp B/P (MAP) Pulse Ox O2 Delivery O2 Flow Rate FiO2 08/08/17 19:09 25 98 Room Air 08/08/17 18:50 76 08/08/17 16:43 98.0 Orders Orders Complete Blood Count With Diff (08/08/17 18:50) Comprehensive Metabolic Panel (08/08/17 18:50) B-Type Natriuretic Peptide (08/08/17 18:50) Troponin I (08/08/17 18:50) Iv Access Insert/Monitor (08/08/17 18:50) Ecg Monitoring (08/08/17 18:50) Oximetry (08/08/17 18:50) Oxygen Administration (08/08/17 18:50) Chest, Single Ap (08/08/17 18:50) Sodium Chloride 0.9% Flush (Ns Flush) (08/08/17 19:00) Labs Laboratory Tests Test 08/08/17 18:47 White Blood Count 11.8 TH/MM3 Red Blood Count 3.69 MIL/MM3 Hemoglobin 10.0 GM/DL Hematocrit 30.7 % Mean Corpuscular Volume 83.1 FL Mean Corpuscular Hemoglobin 27.0 PG Mean Corpuscular Hemoglobin Concent 32.5 % Red Cell Distribution Width 14.0 % Platelet Count 338 TH/MM3 Mean Platelet Volume 10.1 FL Neutrophils (%) (Auto) 75.0 % Lymphocytes (%) (Auto) 17.5 % Monocytes (%) (Auto) 6.6 % Eosinophils (%) (Auto) 0.4 % Basophils (%) (Auto) 0.5 % Neutrophils # (Auto) 8.8 TH/MM3 Lymphocytes # (Auto) 2.1 TH/MM3 Monocytes # (Auto) 0.8 TH/MM3 Eosinophils # (Auto) 0.0 TH/MM3 Basophils # (Auto) 0.1 TH/MM3 CBC Comment DIFF FINAL Differential Comment MDM Medical Decision Making Medical Screen Exam Complete: Yes Emergency Medical Condition: Yes Interpretation(s) LABS: CBC remarkable for mild leukocytosis, mild anemia. CMP pending Troponin pending BNP pending Chest x-ray: No acute disease Differential Diagnosis Heart failure, obesity, volume overload, other Narrative Course Medical decision making Is a 47-year-old woman who presents to the emergency department complaining of weight gain, apnea, PND, suggest worsening heart failure. We will check x-rays labs EKG, IV Lasix, may be a candidate for the RTU. Torsten Nesbitt MD Aug 08, 2017 19:52
[2017-08-08 20:00] VITALS: BP 146/63; PULSE 80; RESP 21; O2SAT 98
[2017-08-08] MEDS ORDERED: FUROSEMIDE 40 MG/4 ML VIAL IV PUSH ONE (20:00)
[2017-08-08 20:05] LABS: ALBUMIN 2.7 GM/DL (3.4-5.0); ALKALINE PHOSPHATASE 90 U/L (45-117); ALT (GPT) 30 U/L (10-53); AST (GOT) 18 U/L (15-37); BICARBONATE 25.9 MEQ/L (21.0-32.0); BLOOD UREA NITROGEN 20 MG/DL (7-18); CALCIUM 8.5 MG/DL (8.5-10.1); CHLORIDE 92 MEQ/L (98-107); CREATININE 1.16 MG/DL (0.50-1.00); GLOMERULAR FILTRATION RATE 50 ML/MIN (>89); SODIUM (NA) 128 MEQ/L (136-145); TOTAL BILIRUBIN ADULT 0.2 MG/DL (0.2-1.0); TOTAL PROTEIN 6.8 GM/DL (6.4-8.2); TROPONIN I LESS THAN 0.02 NG/ML (0.02-0.05)
[2017-08-08 20:11] LABS: GLUCOSE,RANDOM 463 MG/DL (74-106)
[2017-08-08] MEDS ORDERED: INSULIN HUMAN REGULAR 1,000 UNITS/10 ML VIAL IV PUSH ONE (20:30)
--- NOTE | 2017-08-08 20:40 | PD ---
Data Data Last Documented VS Vital Signs Date Time Temp Pulse Resp B/P (MAP) Pulse Ox O2 Delivery O2 Flow Rate FiO2 08/08/17 19:09 25 98 Room Air 08/08/17 18:50 76 08/08/17 16:43 98.0 Orders Orders Complete Blood Count With Diff (08/08/17 18:50) Comprehensive Metabolic Panel (08/08/17 18:50) B-Type Natriuretic Peptide (08/08/17 18:50) Troponin I (08/08/17 18:50) Iv Access Insert/Monitor (08/08/17 18:50) Ecg Monitoring (08/08/17 18:50) Oximetry (08/08/17 18:50) Oxygen Administration (08/08/17 18:50) Chest, Single Ap (08/08/17 18:50) Sodium Chloride 0.9% Flush (Ns Flush) (08/08/17 19:00) Furosemide Inj (Lasix Inj) (08/08/17 20:00) Electrocardiogram (08/08/17 ) Insulin Human Regular Inj (Novolin R Inj (08/08/17 20:30) Admit Order (Ed Use Only) (08/08/17 20:36) Labs Laboratory Tests Test 08/08/17 18:47 White Blood Count 11.8 TH/MM3 Red Blood Count 3.69 MIL/MM3 Hemoglobin 10.0 GM/DL Hematocrit 30.7 % Mean Corpuscular Volume 83.1 FL Mean Corpuscular Hemoglobin 27.0 PG Mean Corpuscular Hemoglobin Concent 32.5 % Red Cell Distribution Width 14.0 % Platelet Count 338 TH/MM3 Mean Platelet Volume 10.1 FL Neutrophils (%) (Auto) 75.0 % Lymphocytes (%) (Auto) 17.5 % Monocytes (%) (Auto) 6.6 % Eosinophils (%) (Auto) 0.4 % Basophils (%) (Auto) 0.5 % Neutrophils # (Auto) 8.8 TH/MM3 Lymphocytes # (Auto) 2.1 TH/MM3 Monocytes # (Auto) 0.8 TH/MM3 Eosinophils # (Auto) 0.0 TH/MM3 Basophils # (Auto) 0.1 TH/MM3 CBC Comment DIFF FINAL Differential Comment Blood Urea Nitrogen 20 MG/DL Creatinine 1.16 MG/DL Random Glucose 463 MG/DL Total Protein 6.8 GM/DL Albumin 2.7 GM/DL Calcium Level 8.5 MG/DL Alkaline Phosphatase 90 U/L Aspartate Amino Transf (AST/SGOT) 18 U/L Alanine Aminotransferase (ALT/SGPT) 30 U/L Total Bilirubin 0.2 MG/DL Sodium Level 128 MEQ/L Potassium Level 4.3 MEQ/L Chloride Level 92 MEQ/L Carbon Dioxide Level 25.9 MEQ/L Anion Gap 10 MEQ/L Estimat Glomerular Filtration Rate 50 ML/MIN Troponin I LESS THAN 0.02 NG/ML [facility] Supervised Visit with IMTIAZ: No Narrative Course The patient was initially evaluated by the previous provider and signed out to me at the beginning of my shift at approximately 7:00 PM pending labs and disposition. See his note for further details. Briefly this is a 47-year-old female with history of diabetes, CAD, CABG, recent admission to the chest pain center and discharged 3 days ago, here for evaluation of dyspnea on exertion, orthopnea, and 18 pound weight gain as well as bilateral lower extremity edema. Patient has never been on Lasix. She had a recent stress test that showed an EF of 48%. She denies having any chest pain. Her EKG shows no signs of ischemia. Chest x-ray shows no acute cardiopulmonary disease. O2 saturation is 90% on room air. Labs are remarkable for H&H 10/30 which is around her baseline as well as glucose 463 with slight hyponatremia of 128 which is likely secondary to hyperglycemia. She is not in DKA. Her cardiac enzymes are negative. She reports compliance with metformin and glipizide, however states that she did not take her medication today. She was provided 40 mg of IV Lasix by the previous provider and as well as 8 units of insulin by me. She will be admitted for further treatment and evaluation of hyperglycemia and peripheral edema with dyspnea on exertion. Case discussed with hospitalist Dr Cross who will admit the patient to her service. Diagnosis Primary Impression: Dyspnea on exertion Additional Impressions: Peripheral edema Hyperglycemia Hyponatremia Admitting Information Admitting Physician Requests: Saleem Arroyo MD Aug 08, 2017 20:40
--- NOTE | 2017-08-08 20:43 | HHI.HP ---
[facility] Diane Rodriguez, DO Admission Diagnosis Peripheral edema, hyperglycemia, hyponatremia, dyspnea Diagnoses: (1) Fluid overload Diagnosis: Principal (2) Dyspnea Diagnosis: Principal (3) HTN (hypertension) (4) Renal insufficiency Diagnosis: Principal (5) DM (diabetes mellitus) Diagnosis: Principal Travel History International Travel<30 Days: No Contact w/Intl Traveler <30 Da: No Traveled to Known Affected Are: No History of Present Illness This is a 47-year-old female with a PMH of HTN, Hyperlipidemia, DM, Sleep Apnea and CAD s/p CABG who presented to the ER w/ c/o SOB and lower extremity edema x2 days. [facility] for c/o chest pain, Nuclear Stress 08/04/17 negative for ischemia, EF 48%, reduced in comparison to previous stress. Denies h/o CHF, not currently on diuretic therapy. Denies fever, chills or cough. Notes orthopnea when lying flat, has been non- compliant w/ CPAP due to "anxiety". On arrival, BP 135/61, HR 80, O2 sat 99% on RA, Afebrile. WBC 11.8. Creatinine 1.16, previously 1.25 on 08/03/17. BS 463. Troponin negative. BNP 169. CXR with no acute findings. S/p Lasix in ER w/ minimal urine output so far. Review of Systems Except as stated in HPI: all other systems reviewed are Neg ROS: 14 point review of systems otherwise negative. Past Family Social History Past Medical History PMH: HTN, Hyperlipidemia, DM, Sleep Apnea and CAD s/p CABG Past Surgical History PAST SURGICAL HISTORY: CABG Allergies: Coded Allergies: escitalopram (Verified Allergy, Severe, 08/08/17) pt " states it makes me rip my skin out" morphine (Verified Allergy, Severe, "MAKES ME WANT TO RIP MY SKIN OFF", 08/08/17) promethazine (Verified Allergy, Severe, "MAKES ME WANT TO RIP MY SKIN OFF ", 08/08/17) Family History PAST FAMILY HISTORY: Reviewed. No h/o DM or CAD Social History PAST SOCIAL HISTORY: Occasional alcohol. History of tobacco, quit 2012. Negative for drugs. Physical Exam Vital Signs Vital Signs Date Time Temp Pulse Resp B/P (MAP) Pulse Ox O2 Delivery O2 Flow Rate FiO2 08/08/17 19:09 25 98 Room Air 08/08/17 18:50 76 19 189/95 (126) 99 Room Air 08/08/17 18:23 75 19 99 Room Air 08/08/17 16:43 98.0 80 20 135/61 (85) 99 Physical Exam PE: GENERAL: Middle-aged white female in no acute distress. Family members at bedside. HEENT: PERRLA, EOMI. No scleral icterus or conjunctival pallor. No lid lag or facial droop. CARDIOVASCULAR: Regular rate and rhythm. No obvious murmurs to auscultation. No chest tenderness to palpation. RESPIRATORY: No obvious rhonchi or wheezing. Clear to auscultation. Breath sounds equal bilaterally. GASTROINTESTINAL: Abdomen soft, non-tender, nondistended. BS normal. MUSCULOSKELETAL: Extremities without clubbing, cyanosis, 1-2+ edema. No obvious deformities. NEUROLOGICAL: Awake, alert and oriented x4. No focal neurologic deficits. Moving both upper and lower extremities spontaneously. Laboratory Laboratory Tests Test 08/08/17 18:47 White Blood Count 11.8 Red Blood Count 3.69 Hemoglobin 10.0 Hematocrit 30.7 Mean Corpuscular Volume 83.1 Mean Corpuscular Hemoglobin 27.0 Mean Corpuscular Hemoglobin Concent 32.5 Red Cell Distribution Width 14.0 Platelet Count 338 Mean Platelet Volume 10.1 Neutrophils (%) (Auto) 75.0 Lymphocytes (%) (Auto) 17.5 Monocytes (%) (Auto) 6.6 Eosinophils (%) (Auto) 0.4 Basophils (%) (Auto) 0.5 Neutrophils # (Auto) 8.8 Lymphocytes # (Auto) 2.1 Monocytes # (Auto) 0.8 Eosinophils # (Auto) 0.0 Basophils # (Auto) 0.1 CBC Comment DIFF FINAL Differential Comment Blood Urea Nitrogen 20 Creatinine 1.16 Random Glucose 463 Total Protein 6.8 Albumin 2.7 Calcium Level 8.5 Alkaline Phosphatase 90 Aspartate Amino Transf (AST/SGOT) 18 Alanine Aminotransferase (ALT/SGPT) 30 Total Bilirubin 0.2 Sodium Level 128 Potassium Level 4.3 Chloride Level 92 Carbon Dioxide Level 25.9 Anion Gap 10 Estimat Glomerular Filtration Rate 50 Troponin I LESS THAN 0.02 B-Type Natriuretic Peptide 169 Result Diagram: 08/08/17184608/08/171846 Jaleel VTE Risk Assessment Erika VTE Risk Assessment: No/Low Risk (score <= 1) Caprini Risk Assessment Model Point Value = 1 Point Value = 2 Point Value = 3 Point Value = 5 Age 41-60 Minor surgery BMI > 25 kg/m2 Swollen legs Varicose veins or History of unexplained or recurrent spontaneous Oral contraceptives or hormone replacement Sepsis (< 1 month) Serious lung disease, including pneumonia (< 1 month) Abnormal pulmonary function Acute myocardial infarction Congestive heart failure (< 1 month) History of inflammatory bowel disease Medical patient at bed rest Age 61-74 Arthroscopic surgery Major open surgery (> 45 min) Laparoscopic surgery (> 45 min) Malignancy Confined to bed (> 72 hours) Immobilizing plaster cast Central venous access Age >= 75 History of VTE Family history of VTE Factor V Leiden Prothrombin [id number] Lupus anticoagulant Anticardiolipin antibodies Elevated serum homocysteine Heparin-induced thrombocytopenia Other congenital or acquired thrombophilia Stroke (< 1 month) Elective arthroplasty Hip, pelvis, or leg fracture Acute spinal cord injury (< 1 month) Prophylaxis Regimen Total Risk Factor Score Risk Level Prophylaxis Regimen 0-1 Low Early ambulation 2 Moderate Order ONE of the following: *Sequential Compression Device (SCD) *Heparin 5000 units SQ BID 3-4 Higher Order ONE of the following medications: *Heparin 5000 units SQ TID *Enoxaparin/Lovenox 40 mg SQ daily (WT < 150 kg, CrCl > 30 mL/min) *Enoxaparin/Lovenox 30 mg SQ daily (WT < 150 kg, CrCl > 10-29 mL/min) *Enoxaparin/Lovenox 30 mg SQ BID (WT < 150 kg, CrCl > 30 mL/min) AND/OR *Sequential Compression Device (SCD) 5 or more Highest Order ONE of the following medications: *Heparin 5000 units SQ TID (Preferred with Epidurals) *Enoxaparin/Lovenox 40 mg SQ daily (WT < 150 kg, CrCl > 30 mL/min) *Enoxaparin/Lovenox 30 mg SQ daily (WT < 150 kg, CrCl > 10-29 mL/min) *Enoxaparin/Lovenox 30 mg SQ BID (WT < 150 kg, CrCl > 30 mL/min) AND *Sequential Compression Device (SCD) Assessment and Plan Problem List: (1) Fluid overload ICD Code: E87.70 - Fluid overload, unspecified (2) Dyspnea ICD Code: R06.00 - Dyspnea, unspecified (3) HTN (hypertension) ICD Code: I10 - HTN (hypertension) Status: Chronic (4) Renal insufficiency ICD Code: N28.9 - Disorder of kidney and ureter, unspecified (5) DM (diabetes mellitus) ICD Code: E11.9 - Type 2 diabetes mellitus without complications Assessment and Plan A/P: 1. Fluid Overload: c/o bilateral lower extremity edema, no reported h/o CHF, BNP 169, CXR w/ no acute findings, images reviewed by me. Recent admit to [facility] s /p Nuclear Stress 08/04/17 negative for ischemia, EF 48%. Will check Echo to eval for heart failure. Continue Lasix. Monitor I/O. Check serial cardiac enzymes to r/o underlying ischemia. Will likely need outpatient Cardio follow up. Pt advised to reduce salt intake. 2. Dyspnea: Likely secondary to non-compliance w/ CPAP and CHF. Reports orthopnea and "anxiety", Ativan prn, CPAP at night. Check Echo as above. 3. Renal Insufficiency: Creatinine 1.16, previously 1.25 on 08/03/17. Monitor I /O, caution w/ diuretics. 4. DM: Uncontrolled. Non-compliant w/ diabetic diet. Check Hgb A1c. Sliding scale w/ Accu-checks, resume home Glipizide 5. HTN: Uncontrolled. BP 180's while in ER, will monitor, resume home Metoprolol, hold Lisinopril in light of renal insufficiency. 6. DVT Prophylaxis: Heparin sq 7. Social work for d/c planning as needed. 8. Case discussed w/ ER physician at length, labs/records/imaging reviewed by me. Elba Cross MD Aug 08, 2017 20:43
[2017-08-08] MEDS ORDERED: SENNOSIDES 8.6 MG TAB PO PRN (20:45)
[2017-08-08] MEDS ORDERED: ACETAMINOPHEN/HYDROcodone 325 MG/5 MG TAB PO PRN (20:45)
[2017-08-08] MEDS ORDERED: ACETAMINOPHEN 325 MG TAB PO PRN (20:45)
[2017-08-08] MEDS ORDERED: ACETAMINOPHEN/HYDROcodone 325 MG/10 MG TAB PO PRN (20:45)
[2017-08-08] MEDS ORDERED: ONDANSETRON HCL 4 MG/2 ML VIAL IVP PRN (20:45)
[2017-08-08] MEDS ORDERED: GLUCAGON 1 MG/ML VIAL OTHER PRN (20:45)
[2017-08-08] MEDS ORDERED: LACTULOSE SYRUP 20 GM/30 ML CUP PO PRN (20:45)
[2017-08-08] MEDS ORDERED: LORazepam 2 MG/ML VIAL IV PUSH PRN (20:45)
[2017-08-08] MEDS ORDERED: BISACODYL 10 MG SUPP RECTAL PRN (20:45)
[2017-08-08] MEDS ORDERED: DEXTROSE 50% IN WATER 50 ML VIAL(D50) IV PUSH PRN (20:45)
[2017-08-08] MEDS ORDERED: MAGNESIUM HYDROXIDE SUSP 30 ML CUP PO PRN (20:45)
[2017-08-08] MEDS ORDERED: SODIUM CHLORIDE 0.9% FLUSH 10 ML FLUSH IV FLUSH PRN (20:45)
[2017-08-08] MEDS: DOCUSATE SODIUM 50 MG/SENNA 8.6 MG TAB PO SCH (21:00)
[2017-08-08] MEDS: SODIUM CHLORIDE 0.9% FLUSH 10 ML FLUSH IV FLUSH SCH (21:00)
[2017-08-08] MEDS: PRAVASTATIN SOD 40 MG TAB PO SCH (21:06)
[2017-08-08] MEDS: METOPROLOL TARTRATE 25 MG TAB PO SCH (21:06)
[2017-08-08] MEDS: GABAPENTIN 300 MG CAP PO SCH (21:06)
[2017-08-08] MEDS: INSULIN ASPART SUPPLEMENTAL SCALE SQ SCH (21:58)
[2017-08-08] MEDS ORDERED: INSULIN DETEMIR 100 UNITS/ML VIAL SQ ONE (23:15)
[2017-08-08 23:23] VITALS: BP 146/64; PULSE 76; RESP 20; O2SAT 97
[2017-08-08] MEDS: LURASIDONE 80 MG TAB PO SCH (23:34)
[2017-08-09] VITALS (8 sets, daily range): BP systolic 120–151; BP diastolic 59–68; PULSE 62–80; RESP 16–20; TEMP 98.2–98.7; O2SAT 90–98
[2017-08-09 07:02] LABS: AUTOMATED NEUTROPHIL # 10.6 TH/MM3 (1.8-7.7); BASOPHIL % 0.3 % (0.0-2.0); EOSINOPHIL % 0.3 % (0.0-4.0); HEMATOCRIT 29.8 % (35.0-46.0); HEMOGLOBIN 9.6 GM/DL (11.6-15.3); LYMPHOCYTE # 2.2 TH/MM3 (1.0-4.8); MEAN CELL VOLUME 83.3 FL (80.0-100.0); MEAN CORPUSCULAR HEMOGLOBIN 26.9 PG (27.0-34.0); MEAN CORPUSCULAR HGB CONC 32.3 % (32.0-36.0); MEAN PLATELET VOLUME 10.2 FL (7.0-11.0); MONO % 7.8 % (0.0-8.0); MONOCYTE # 1.1 TH/MM3 (0-0.9); NEUT % 75.6 % (16.0-70.0); PLATELET COUNT 296 TH/MM3 (150-450); RED BLOOD COUNT 3.57 MIL/MM3 (4.00-5.30); RED CELL DISTRIBUTION WIDTH 14.3 % (11.6-17.2); WHITE BLOOD COUNT 14.1 TH/MM3 (4.0-11.0)
[2017-08-09 07:32] LABS: ALBUMIN 2.5 GM/DL (3.4-5.0); ALKALINE PHOSPHATASE 84 U/L (45-117); ALT (GPT) 25 U/L (10-53); AST (GOT) 12 U/L (15-37); BICARBONATE 25.6 MEQ/L (21.0-32.0); BLOOD UREA NITROGEN 25 MG/DL (7-18); CALCIUM 8.4 MG/DL (8.5-10.1); CHLORIDE 94 MEQ/L (98-107); CREATININE 1.36 MG/DL (0.50-1.00); GLOMERULAR FILTRATION RATE 42 ML/MIN (>89); GLUCOSE,RANDOM 359 MG/DL (74-106); SODIUM (NA) 131 MEQ/L (136-145); TOTAL BILIRUBIN ADULT 0.3 MG/DL (0.2-1.0); TOTAL PROTEIN 6.5 GM/DL (6.4-8.2); TROPONIN I LESS THAN 0.02 NG/ML (0.02-0.05)
[2017-08-09] MEDS: DOCUSATE SODIUM 50 MG/SENNA 8.6 MG TAB PO SCH ×2 (09:00→21:00)
[2017-08-09] MEDS: INSULIN ASPART SUPPLEMENTAL SCALE SQ SCH ×4 (10:43→22:04)
[2017-08-09] MEDS: GABAPENTIN 300 MG CAP PO SCH ×2 (10:45→22:00)
[2017-08-09] MEDS: ASPIRIN 325 MG TAB PO SCH (10:45)
[2017-08-09] MEDS: METOPROLOL TARTRATE 25 MG TAB PO SCH ×2 (10:46→22:00)
[2017-08-09] MEDS: SODIUM CHLORIDE 0.9% FLUSH 10 ML FLUSH IV FLUSH SCH ×2 (10:46→21:59)
[2017-08-09] MEDS: HEPARIN SODIUM - SQ 10,000 UNITS/ML VIAL SQ SCH ×2 (10:48→22:00)
[2017-08-09] MEDS: glipiZIDE 10 MG TAB PO SCH ×2 (12:14→16:00)
--- NOTE | 2017-08-09 12:48 | HHI.PR ---
Subjective Remarks Patient c/o feeling tired continued edema denies SOB Objective Vital Signs Date Time Temp Pulse Resp B/P (MAP) Pulse Ox O2 Delivery O2 Flow Rate FiO2 08/09/17 08:17 98.2 68 18 128/60 (82) 98 08/09/17 08:05 98 08/09/17 02:55 98.2 71 16 120/59 (79) 91 08/09/17 00:41 73 08/09/17 00:34 15 08/09/17 00:06 98.4 76 20 132/60 (84) 90 08/08/17 23:23 76 20 146/64 (91) 97 Room Air 08/08/17 20:00 80 21 146/63 (90) 98 Room Air 08/08/17 19:09 25 98 Room Air 08/08/17 18:50 76 19 189/95 (126) 99 Room Air 08/08/17 18:23 75 19 99 Room Air 08/08/17 16:43 98.0 80 20 135/61 (85) 99 Result Diagram: 08/09/17 0552 08/09/17 0552 Imaging Last Impressions Chest X-Ray 08/08/17 1850 Signed Impressions: Service Date/Time: Tuesday, August 08, 2017 19:00 - CONCLUSION: No acute disease. Aleksander Katz MD Objective Remarks GENERAL: This is a morbidly obese female patient, in no apparent distress. CARDIOVASCULAR: Distant heart sounds due to body habitus regular rate and rhythm RESPIRATORY: Difficult to auscultate due to body habitus diminished throughout GASTROINTESTINAL: Abdomen soft, non-tender, nondistended. Normal active bowel sounds MUSCULOSKELETAL: 2+ pitting edema bilateral lower extremities with noted edema bilateral upper extremities NEURO: Alert & Oriented x4 to person, place, time, situation. Moves all ext x4 A/P Assessment and Plan 1. Fluid Overload: c/o bilateral lower extremity edema, no reported h/o CHF, BNP 169, CXR w/ no acute findings. Recent admit to [facility] s/p Nuclear Stress negative for ischemia, EF 48%. Will check Echo to eval for heart failure. Continue Lasix 40 mg IV BID. Monitor I/O. Serial cardiac enzymes < 0.02 x3. Pt advised to reduce salt intake. 2. Dyspnea: Likely secondary to non-compliance w/ CPAP and CHF. Reports orthopnea and "anxiety", Ativan prn, CPAP at night. Check Echo as above. 3. Renal Insufficiency: Creatinine 1.16, previously 1.25 on 08/03/17. Monitor I /O, caution w/ diuretics. Check BMP in AM 4. DM: Uncontrolled. Non-compliant w/ diabetic diet. Check Hgb A1c. Sliding scale w/ Accu-checks, resume home Glipizide add Levemir 10 units SQ BID 5. HTN: Improving BP 180's while in ER, will monitor, resume home Metoprolol , hold Lisinopril in light of renal insufficiency. 6. DVT Prophylaxis: Heparin sq Discussed with Nichelle Richards Aug 09, 2017 12:48
[2017-08-09 12:57] LABS: HEMOGLOBIN A1C 12.6 % (4.3-6.0)
--- NOTE | 2017-08-09 16:12 | EKG ---
Date Performed: 08/08/2017 Time Performed: 20:04:10 PTAGE: 47 years EKG: Sinus rhythm MINOR NONSPECIFIC T WAVE CHANGES Since the previous tracing, no significant change noted NORMAL ECG PREVIOUS TRACING : 08/03/2017 21.27 DOCTOR: Tristen Gary Interpretating Date/Time 08/09/2017 16:10:25
[2017-08-09] MEDS ORDERED: POTASSIUM CHLORIDE 20 MEQ CONTROLLED RELEASE TAB PO ONE (18:00)
[2017-08-09] MEDS: FUROSEMIDE 40 MG/4 ML VIAL IV PUSH SCH (18:00)
[2017-08-09] MEDS: LURASIDONE 80 MG TAB PO SCH (22:00)
[2017-08-09] MEDS: PRAVASTATIN SOD 40 MG TAB PO SCH (22:02)
[2017-08-09] MEDS: INSULIN DETEMIR 100 UNITS/ML VIAL SQ SCH (22:04)
[2017-08-09 23:08] LABS: BILIRUBIN, URINE NEG (NEG); BLOOD, URINE NEG (NEG); GLUCOSE,URINE TRACE mg/dL (NEG); KETONE, URINE NEG (NEG); NITRITE,URINE NEG (NEG); URINE COLOR COLORLESS (YELLW/STRAW); URINE LEUKOCYTE ESTERASE NEG (NEG)
[2017-08-10] VITALS (11 sets, daily range): BP systolic 136–163; BP diastolic 61–79; PULSE 63–71; RESP 16; TEMP 97.5–98.2; O2SAT 93–97
[2017-08-10 06:25] LABS: AUTOMATED NEUTROPHIL # 4.8 TH/MM3 (1.8-7.7); BASOPHIL % 0.1 % (0.0-2.0); EOSINOPHIL % 0.3 % (0.0-4.0); HEMATOCRIT 29.1 % (35.0-46.0); HEMOGLOBIN 9.7 GM/DL (11.6-15.3); LYMPH % 28.9 % (9.0-44.0); LYMPHOCYTE # 2.2 TH/MM3 (1.0-4.8); MEAN CELL VOLUME 83.3 FL (80.0-100.0); MEAN CORPUSCULAR HEMOGLOBIN 27.6 PG (27.0-34.0); MEAN CORPUSCULAR HGB CONC 33.2 % (32.0-36.0); MONOCYTE # 0.6 TH/MM3 (0-0.9); NEUT % 62.7 % (16.0-70.0); PLATELET COUNT 320 TH/MM3 (150-450); RED BLOOD COUNT 3.49 MIL/MM3 (4.00-5.30); RED CELL DISTRIBUTION WIDTH 14.4 % (11.6-17.2); WHITE BLOOD COUNT 7.6 TH/MM3 (4.0-11.0)
[2017-08-10 07:18] LABS: CALCIUM 8.8 MG/DL (8.5-10.1); CREATININE 1.22 MG/DL (0.50-1.00)
[2017-08-10] MEDS: INSULIN DETEMIR 100 UNITS/ML VIAL SQ SCH ×2 (08:24→21:07)
[2017-08-10] MEDS: SODIUM CHLORIDE 0.9% FLUSH 10 ML FLUSH IV FLUSH SCH ×2 (08:24→21:07)
[2017-08-10] MEDS: HEPARIN SODIUM - SQ 10,000 UNITS/ML VIAL SQ SCH ×2 (08:25→21:07)
[2017-08-10] MEDS: POTASSIUM CHLORIDE 20 MEQ CONTROLLED RELEASE TAB PO SCH (08:25)
[2017-08-10] MEDS: glipiZIDE 10 MG TAB PO SCH ×2 (08:25→17:42)
[2017-08-10] MEDS: FUROSEMIDE 40 MG/4 ML VIAL IV PUSH SCH ×2 (08:25→17:43)
[2017-08-10] MEDS: DOCUSATE SODIUM 50 MG/SENNA 8.6 MG TAB PO SCH ×2 (08:26→21:07)
[2017-08-10] MEDS: METOPROLOL TARTRATE 25 MG TAB PO SCH ×2 (08:26→21:07)
[2017-08-10] MEDS: ASPIRIN 325 MG TAB PO SCH (08:26)
[2017-08-10] MEDS: GABAPENTIN 300 MG CAP PO SCH ×2 (08:26→21:07)
--- NOTE | 2017-08-10 09:00 | HHI.PR ---
Subjective Remarks Follow up for fluid overload. The patient reports feeling better today. She states her breathing has improved and her leg swelling is also improved. She denies any orthopnea today. She has been able to ambulate without difficulty. Her O2 sat is stable on room air at 95%. She wants to go home today. She is awaiting echocardiogram. She states she has not seen a hydrostatic tester in a few years, probably since 2011, but did see Dr. Hwang he previously. Objective Vitals Vital Signs Date Time Temp Pulse Resp B/P (MAP) Pulse Ox O2 Delivery O2 Flow Rate FiO2 08/10/17 07:16 97.6 64 16 136/61 (86) 95 08/10/17 04:18 97.5 71 16 148/64 (92) 97 08/10/17 03:40 68 08/10/17 01:29 98.2 66 16 141/65 (90) 96 08/09/17 19:40 98.7 74 16 151/68 (95) 93 08/09/17 16:29 98.6 62 18 120/62 (81) 98 08/09/17 15:05 80 I/O 08/09/17 08/09/17 08/09/17 08/10/17 08/10/17 08/10/17 07:00 15:00 23:00 07:00 15:00 23:00 Intake Total 480 ml Balance 480 ml Intake Oral 480 ml # Voids 3 Result Diagram: 08/10/17 0522 08/10/17 0522 Imaging Last Impressions Chest X-Ray 08/08/17 1850 Signed Impressions: Service Date/Time: Tuesday, August 08, 2017 19:00 - CONCLUSION: No acute disease. Aleksander Katz MD Objective Remarks GENERAL: Well-nourished, well-developed middle aged female patient in [facility]. Lying flat in bed. SKIN: Warm and dry. No rash. HEENT: Normocephalic. Atraumatic.Pupils equal and round. Mucous membranes pink and moist. NECK: Supple. Trachea midline. CARDIOVASCULAR: Regular rate and rhythm. S1, S2 noted. No murmur appreciated. RESPIRATORY: No accessory muscle use. Clear to auscultation. Breath sounds equal bilaterally. GASTROINTESTINAL: Abdomen soft, non-tender, nondistended. Normoactive bowel sounds x4. MUSCULOSKELETAL: No obvious deformities. 1+ bilateral lower extremity edema. NEUROLOGICAL: Awake and alert. No obvious cranial nerve deficits. Motor grossly within normal limits. Normal speech. PSYCHIATRIC: Appropriate mood and affect; insight and judgment normal. Medications and IVs Current Medications Medications (Trade) Dose Ordered Sig/Jonas Route Start Time Stop Time Status Last Admin (D50w (Vial) Inj) 50 ml UNSCH PRN IV PUSH 08/08/17 20:45 (Glucagon Inj) 1 mg UNSCH PRN OTHER 08/08/17 20:45 (NovoLOG SUPPLEMENTAL SCALE) 1 ACHS SLIDING SCALE SQ 08/08/17 21:00 08/10/17 09:21 (NS Flush) 2 ml UNSCH PRN IV FLUSH 08/08/17 20:45 (NS Flush) 2 ml BID IV FLUSH 08/08/17 21:00 08/10/17 08:24 (Zofran Inj) 4 mg Q6H PRN IVP 08/08/17 20:45 (Heparin Inj) 5,000 units Q12H SQ 08/09/17 09:00 08/10/17 08:25 (Tylenol) 650 mg Q6H PRN PO 08/08/17 20:45 (Florence 5-325 Mg) 1 tab Q4H PRN PO 08/08/17 20:45 (Florence 10-325 Mg) 1 tab Q4H PRN PO 08/08/17 20:45 08/08/17 23:34 (Nevin-Colace) 1 tab BID PO 08/08/17 21:00 (Milk Of Magnesia Liq) 30 ml Q12H PRN PO 08/08/17 20:45 (Senokot) 17.2 mg Q12H PRN PO 08/08/17 20:45 (Dulcolax Supp) 10 mg DAILY PRN RECTAL 08/08/17 20:45 (Lactulose Liq) 30 ml DAILY PRN PO 08/08/17 20:45 (Aspirin) 325 mg DAILY PO 08/09/17 09:00 08/10/17 08:26 (Neurontin) 300 mg BID PO 08/08/17 21:00 08/10/17 08:26 (Glucotrol) 10 mg BIDAC PO 08/09/17 07:00 08/10/17 08:25 (Latuda) 80 mg HS PO 08/08/17 21:00 08/09/17 22:00 (Lopressor) 25 mg BID PO 08/08/17 21:00 08/10/17 08:26 (Pravachol) 40 mg HS PO 08/08/17 21:00 08/09/17 22:02 (Ativan Inj) 1 mg Q4H PRN IV PUSH 08/08/17 20:45 08/08/17 23:34 (Levemir Inj) 10 units Q12HR SQ 08/09/17 21:00 08/10/17 08:24 (Lasix Inj) 40 mg BID@18 IV PUSH 08/09/17 18:00 08/10/17 08:25 (KCl) 20 meq DAILY PO 08/10/17 09:00 08/10/17 08:25 A/P Problem List: (1) Fluid overload ICD Code: E87.70 - Fluid overload, unspecified (2) Dyspnea ICD Code: R06.00 - Dyspnea, unspecified (3) HTN (hypertension) ICD Code: I10 - HTN (hypertension) Status: Chronic (4) Renal insufficiency ICD Code: N28.9 - Disorder of kidney and ureter, unspecified (5) DM (diabetes mellitus) ICD Code: E11.9 - Type 2 diabetes mellitus without complications Assessment and Plan 47-year-old female with a PMH of HTN, Hyperlipidemia, DM, Sleep Apnea and CAD s/ p CABG who presented to the ER w/ c/o SOB and lower extremity edema x2 days. Denies h/o CHF, not currently on diuretic therapy. Fluid Overload: c/o bilateral lower extremity edema, no reported h/o CHF, BNP 169, CXR w/ no acute findings. Recent admit to [facility] s/p Nuclear Stress 08/04/17 negative for ischemia, EF 48%. Will check Echo to eval for heart failure. Continue Lasix 40 mg IV BID. Monitor I/O and daily weights. Serial cardiac enzymes negative x3. Pt advised on CHF education, reduce salt intake, monitor weights, fluid restrictions, etc. Dyspnea: Likely secondary to non-compliance w/ CPAP and CHF. Reports orthopnea and "anxiety", Ativan prn, CPAP at night. Check Echo as above. Renal Insufficiency: Creatinine 1.16, previously 1.25 on 4/2/18. Monitor I/O, caution w/ diuretics. BMP stable, repeat Cr 1.22. DM: Uncontrolled. Non-compliant w/ diabetic diet. Check Hgb A1c. Sliding scale w/ Accu-checks, resume home Glipizide, added Levemir 10 units SQ BID. Consult consumer educator. HTN: Improving BP 180's while in ER, will monitor, resume home Metoprolol, hold Lisinopril in light of renal insufficiency. DVT Prophylaxis: Heparin sq Discharge Planning Possible discharge later today depending on results of echocardiogram. Needs to follow up with cardiology as outpatient. Mary Jo Montoya PA-C Aug 10, 2017 9:00 am
[2017-08-10] MEDS: INSULIN ASPART SUPPLEMENTAL SCALE SQ SCH ×3 (09:21→21:08)
[2017-08-10] MEDS ORDERED: INSULIN ASPART 1,000 UNITS/10 ML VIAL SQ ONE (12:45)
[2017-08-10] MEDS: PRAVASTATIN SOD 40 MG TAB PO SCH (21:07)
[2017-08-10] MEDS: LURASIDONE 80 MG TAB PO SCH (21:09)
[2017-08-11 03:56] VITALS: BP 143/65; PULSE 60; RESP 16; TEMP 98.1; O2SAT 98
[2017-08-11] MEDS: glipiZIDE 10 MG TAB PO SCH (06:29)
[2017-08-11 07:33] VITALS: BP 137/63; PULSE 65; RESP 16; TEMP 98.2; O2SAT 95
[2017-08-11 08:15] VITALS: PULSE 66
[2017-08-11] MEDS: SODIUM CHLORIDE 0.9% FLUSH 10 ML FLUSH IV FLUSH SCH (08:35)
[2017-08-11] MEDS: METOPROLOL TARTRATE 25 MG TAB PO SCH (08:36)
[2017-08-11] MEDS: GABAPENTIN 300 MG CAP PO SCH (08:36)
[2017-08-11] MEDS: ASPIRIN 325 MG TAB PO SCH (08:36)
[2017-08-11] MEDS: POTASSIUM CHLORIDE 20 MEQ CONTROLLED RELEASE TAB PO SCH (08:36)
[2017-08-11] MEDS: FUROSEMIDE 40 MG/4 ML VIAL IV PUSH SCH (08:36)
[2017-08-11] MEDS: HEPARIN SODIUM - SQ 10,000 UNITS/ML VIAL SQ SCH (08:36)
[2017-08-11] MEDS: INSULIN DETEMIR 100 UNITS/ML VIAL SQ SCH (08:37)
[2017-08-11] MEDS: DOCUSATE SODIUM 50 MG/SENNA 8.6 MG TAB PO SCH (08:37)
[2017-08-11] MEDS ORDERED: LEVEMIR SQ (09:22)
[2017-08-11] MEDS ORDERED: GLUCKIT15 (09:22)
[2017-08-11] MEDS ORDERED: NOVOLOGP2 SQ (09:22)
[2017-08-11] MEDS ORDERED: INSU1MIS15 (09:22)
[2017-08-11] MEDS ORDERED: GLUCTES12 (09:22)
[2017-08-11] MEDS ORDERED: LANCETS1 MI1 (09:22)
[2017-08-11] MEDS ORDERED: FURO1TAB60 PO (09:25)
[2017-08-11] MEDS ORDERED: POTA20TA5 PO (09:25)
--- NOTE | 2017-08-11 09:27 | HHI.DCPOC ---
Discharge Care Plan Diagnosis: (1) DM (diabetes mellitus) (2) HTN (hypertension) (3) Renal insufficiency (4) Fluid overload (5) Dyspnea (6) CAD (coronary artery disease) Goals to Promote Your Health * To prevent worsening of your condition and complications * To maintain your health at the optimal level Directions to Meet Your Goals Take your medications as prescribed Follow your dietary instruction Follow activity as directed Keep your appointments as scheduled Take your immunizations and boosters as scheduled If your symptoms worsen call your PCP, if no PCP go to Urgent Care Center or Emergency Room Smoking is Dangerous to Your Health. Avoid second hand smoke Call the 24-hour hour crisis hotline for domestic abuse at Mary Jo Montoya PA-C Aug 11, 2017 09:27
[2017-08-11] MEDS: INSULIN ASPART SUPPLEMENTAL SCALE SQ SCH ×2 (10:17→13:30)
--- NOTE | 2017-08-11 10:56 | HHI.PR ---
Subjective Remarks Follow up for fluid overload, uncontrolled diabetes. The patient reports feeling much better today. She diuresed over 4L over the past 24hours. Shortness of breath and leg swelling much improved. O2 sat stable on room air. She wants to go home. Discussed establishing follow up with cardiology. Also had long discussion regarding her diabetes. She states there is no way she can afford Levemir and Novolog. She agrees to any other insulin that is affordable, as she has no insurance. Objective Vitals Vital Signs Date Time Temp Pulse Resp B/P (MAP) Pulse Ox O2 Delivery O2 Flow Rate FiO2 08/11/17 07:33 98.2 65 16 137/63 (87) 95 08/11/17 03:56 98.1 60 16 143/65 (91) 98 08/10/17 23:33 98.2 65 16 140/65 (90) 93 08/10/17 20:07 98.1 67 16 148/79 (102) 96 08/10/17 16:15 63 08/10/17 15:11 98.0 65 16 161/68 (99) 97 08/10/17 11:55 63 08/10/17 11:12 97.6 65 16 163/73 (103) 95 I/O 08/10/17 08/10/17 08/10/17 08/11/17 08/11/17 08/11/17 07:00 15:00 23:00 07:00 15:00 23:00 Intake Total 960 ml 340 ml Output Total 1500 ml 2400 ml 1600 ml 900 ml Balance -1500 ml -1440 ml -1260 ml -900 ml Intake Oral 960 ml 340 ml Output Urine Total 1500 ml 2400 ml 1600 ml 900 ml # Voids 1 Result Diagram: 08/10/17 0522 08/10/17 0522 Imaging Last Impressions Chest X-Ray 08/08/17 1850 Signed Impressions: Service Date/Time: Tuesday, August 08, 2017 19:00 - CONCLUSION: No acute disease. Aleksander Katz MD Objective Remarks GENERAL: Well-nourished, well-developed middle aged female patient in [facility]. Lying flat in bed. SKIN: Warm and dry. No rash. HEENT: Normocephalic. Atraumatic.Pupils equal and round. Mucous membranes pink and moist. NECK: Supple. Trachea midline. CARDIOVASCULAR: Regular rate and rhythm. S1, S2 noted. No murmur appreciated. RESPIRATORY: No accessory muscle use. Clear to auscultation. Breath sounds equal bilaterally. GASTROINTESTINAL: Abdomen soft, non-tender, nondistended. Normoactive bowel sounds x4. MUSCULOSKELETAL: No obvious deformities. Trace bilateral lower extremity edema. NEUROLOGICAL: Awake and alert. No obvious cranial nerve deficits. Motor grossly within normal limits. Normal speech. PSYCHIATRIC: Appropriate mood and affect; insight and judgment normal. Medications and IVs Current Medications Medications (Trade) Dose Ordered Sig/Jonas Route Start Time Stop Time Status Last Admin (D50w (Vial) Inj) 50 ml UNSCH PRN IV PUSH 08/08/17 20:45 (Glucagon Inj) 1 mg UNSCH PRN OTHER 08/08/17 20:45 (NS Flush) 2 ml UNSCH PRN IV FLUSH 08/08/17 20:45 08/10/17 17:43 (NS Flush) 2 ml BID IV FLUSH 08/08/17 21:00 08/11/17 08:35 (Zofran Inj) 4 mg Q6H PRN IVP 08/08/17 20:45 (Heparin Inj) 5,000 units Q12H SQ 08/09/17 09:00 08/11/17 08:36 (Tylenol) 650 mg Q6H PRN PO 08/08/17 20:45 (Columbus 5-325 Mg) 1 tab Q4H PRN PO 08/08/17 20:45 (Columbus 10-325 Mg) 1 tab Q4H PRN PO 08/08/17 20:45 08/08/17 23:34 (Nevin-Colace) 1 tab BID PO 08/08/17 21:00 08/10/17 21:07 (Milk Of Magnesia Liq) 30 ml Q12H PRN PO 08/08/17 20:45 (Senokot) 17.2 mg Q12H PRN PO 08/08/17 20:45 (Dulcolax Supp) 10 mg DAILY PRN RECTAL 08/08/17 20:45 (Lactulose Liq) 30 ml DAILY PRN PO 08/08/17 20:45 (Aspirin) 325 mg DAILY PO 08/09/17 09:00 08/11/17 08:36 (Neurontin) 300 mg BID PO 08/08/17 21:00 08/11/17 08:36 (Glucotrol) 10 mg BIDAC PO 08/09/17 07:00 08/11/17 06:29 (Latuda) 80 mg HS PO 08/08/17 21:00 08/10/17 21:09 (Lopressor) 25 mg BID PO 08/08/17 21:00 08/11/17 08:36 (Pravachol) 40 mg HS PO 08/08/17 21:00 08/10/17 21:07 (Ativan Inj) 1 mg Q4H PRN IV PUSH 08/08/17 20:45 08/08/17 23:34 (Lasix Inj) 40 mg BID@ IV PUSH 08/09/17 18:00 08/11/17 08:36 (KCl) 20 meq DAILY PO 08/10/17 09:00 08/11/17 08:36 (NovoLOG SUPPLEMENTAL SCALE) 1 ACHS SLIDING SCALE SQ 08/10/17 17:00 08/11/17 13:30 (Levemir Inj) 15 units Q12HR SQ 08/10/17 21:00 08/11/17 08:37 A/P Problem List: (1) Fluid overload ICD Code: E87.70 - Fluid overload, unspecified (2) Dyspnea ICD Code: R06.00 - Dyspnea, unspecified (3) HTN (hypertension) ICD Code: I10 - HTN (hypertension) Status: Chronic (4) Renal insufficiency ICD Code: N28.9 - Disorder of kidney and ureter, unspecified (5) DM (diabetes mellitus) ICD Code: E11.9 - Type 2 diabetes mellitus without complications Assessment and Plan 47-year-old female with a PMH of HTN, Hyperlipidemia, DM, Sleep Apnea and CAD s/ p CABG who presented to the ER w/ c/o SOB and lower extremity edema x2 days. Denies h/o CHF, not currently on diuretic therapy. Fluid Overload: c/o bilateral lower extremity edema, no reported h/o CHF, BNP 169, CXR w/ no acute findings. Recent admit to [facility] s/p Nuclear Stress 08/04/17 negative for ischemia, EF 48%. Will check Echo to eval for heart failure. Continue Lasix 40 mg IV BID. Monitor I/O and daily weights. Serial cardiac enzymes negative x3. Pt advised on CHF education, reduce salt intake, monitor weights, fluid restrictions, etc. Much improved. Dyspnea: Likely secondary to non-compliance w/ CPAP and CHF. Reports orthopnea and "anxiety", Ativan prn, CPAP at night. Check Echo as above. Renal Insufficiency: Creatinine 1.16, previously 1.25 on 08/03/17. Monitor I/O, caution w/ diuretics. BMP stable, repeat Cr 1.22. DM: Uncontrolled. Non-compliant w/ diabetic diet. Check Hgb A1c. Sliding scale w/ Accu-checks, resume home Glipizide, added Levemir 15 units SQ BID. Consult windows phone developer, appreciate assistance. HTN: Improving BP 180's while in ER, will monitor, resume home Metoprolol, held Lisinopril in light of renal insufficiency however will restart upon discharge. DVT Prophylaxis: Heparin sq Discharge Planning Possible discharge later today depending on results of echocardiogram. Needs to follow up with cardiology as outpatient. Mary Jo Montoya PA-C Aug 11, 2017 10:56 am
--- NOTE | 2017-08-11 13:50 | ECHRPT ---
Indication: HEART FAILURE CONCLUSIONS There is trace tricuspid valve regurgitation. Normal left ventricular size. Wall thickness is measured at the upper limits of normal. The left ventricular systolic function is low normal with an estimated ejection fraction of 50%. N o definite segmental wall motion abnormalities. BP: 137 / 63 HR: 65 Rhythm: Sinus MEASUREMENTS (Male / Female) Normal Values Technical Quality:Fair 2D ECHO LV Diastolic Diameter PLAX 4.9 cm 4.2 - 5.9 / 3.9 - 5.3 cm LV Systolic Diameter PLAX 4.0 cm IVS Diastolic Thickness 1.2 cm 0.6 - 1.0 / 0.6 - 0.9 cm LVPW Diastolic Thickness 1.2 cm 0.6 - 1.0 / 0.6 - 0.9 cm LV Relative Wall Thickness 0.5 RV Internal Dim ED PLAX 2.6 cm LVOT Diameter 1.8 cm Aortic Root Diameter 2.9 cm LA Systolic Diameter LX 3.8 cm 3.0 - 4.0 / 2.7 - 3.8 cm M-MODE AV Cusp Separation MM 1.8 cm DOPPLER AV Peak Velocity 138.0 cm/s AV Peak Gradient 7.6 mmHg AV Mean Gradient 5.0 mmHg AV Velocity Time Integral 34.2 cm LVOT Peak Velocity 82.0 cm/s LVOT Peak Gradient 2.7 mmHg LVOT Velocity Time Integral 20.1 cm AV Area Cont Eq vti 1.5 cm AV Area Cont Eq pk 1.5 cm Mitral E Point Velocity 95.3 cm/s Mitral A Point Velocity 75.5 cm/s Mitral E to A Ratio 1.3 LV E' Lateral Velocity 7.7 cm/s Mitral E to LV E' Lateral Ratio 12.4 LV E' Septal Velocity 4.6 cm/s Mitral E to LV E' Septal Ratio 20.8 PV Peak Velocity 51.9 cm/s PV Peak Gradient 1.1 mmHg FINDINGS LEFT VENTRICLE Normal left ventricular size. Wall thickness is measured at the upper limits of normal. The left ventricular systolic function is low normal with an estimated ejection fraction of 50%. N o definite segmental wall motion abnormalities. RIGHT VENTRICLE Normal right ventricular size and systolic function. LEFT ATRIUM The left atrial size is normal. RIGHT ATRIUM The right atrial size is normal. ATRIAL SEPTUM No atrial level shunt is demonstrated by color flow Doppler interrogation. AORTA The aortic root and proximal ascending aorta are not well visualized. MITRAL VALVE Trace mitral valve regurgitation. AORTIC VALVE The aortic valve is not well visualized. TRICUSPID VALVE There is trace tricuspid valve regurgitation. PULMONARY VALVE The pulmonary valve is not well visualized. VESSELS The inferior vena cava was not well visualized. PERICARDIUM No pericardial effusion. Masood Magallanes MD (Electronically Signed) Final Date:11 August 2017 13:48
[2017-08-11] MEDS ORDERED: NOVO7030P2 SQ (14:26)
--- NOTE | 2017-08-11 14:37 | HHI.DS ---
Discharge Summary Admission Date Aug 08, 2017 at 8:38 pm Discharge Date: Aug 11, 2017 Admitting Diagnosis Peripheral edema, hyperglycemia, hyponatremia, dyspnea (1) Fluid overload ICD Code: E87.70 - Fluid overload, unspecified Diagnosis: Principal (2) Dyspnea ICD Code: R06.00 - Dyspnea, unspecified Diagnosis: Principal (3) HTN (hypertension) ICD Code: I10 - HTN (hypertension) Diagnosis: Secondary Status: Chronic (4) Renal insufficiency ICD Code: N28.9 - Disorder of kidney and ureter, unspecified Diagnosis: Secondary (5) DM (diabetes mellitus) ICD Code: E11.9 - Type 2 diabetes mellitus without complications Diagnosis: Principal Procedures None. Brief History - From Admission This is a 47-year-old female with a PMH of HTN, Hyperlipidemia, DM, Sleep Apnea and CAD s/p CABG who presented to the ER w/ c/o SOB and lower extremity edema x2 days. [facility]17 for c/o chest pain, Nuclear Stress 08/04/17 negative for ischemia, EF 48%, reduced in comparison to previous stress. Denies h/o CHF, not currently on diuretic therapy. Denies fever, chills or cough. Notes orthopnea when lying flat, has been non- compliant w/ CPAP due to "anxiety". On arrival, BP 135/61, HR 80, O2 sat 99% on RA, Afebrile. WBC 11.8. Creatinine 1.16, previously 1.25 on 08/03/17. BS 463. Troponin negative. BNP 169. CXR with no acute findings. S/p Lasix in ER w/ minimal urine output so far. CBC/BMP: 08/10/17 0522 08/10/17 0522 Significant Findings Laboratory Tests Test 08/08/17 18:47 08/09/17 00:22 08/09/17 05:52 08/09/17 22:40 White Blood Count 11.8 TH/MM3 (4.0-11.0) 14.1 TH/MM3 (4.0-11.0) Red Blood Count 3.69 MIL/MM3 (4.00-5.30) 3.57 MIL/MM3 (4.00-5.30) Hemoglobin 10.0 GM/DL (11.6-15.3) 9.6 GM/DL (11.6-15.3) Hematocrit 30.7 % (35.0-46.0) 29.8 % (35.0-46.0) Neutrophils (%) (Auto) 75.0 % (16.0-70.0) 75.6 % (16.0-70.0) Neutrophils # (Auto) 8.8 TH/MM3 (1.8-7.7) 10.6 TH/MM3 (1.8-7.7) Blood Urea Nitrogen 20 MG/DL (7-18) 25 MG/DL (7-18) Creatinine 1.16 MG/DL (0.50-1.00) 1.36 MG/DL (0.50-1.00) Random Glucose 463 MG/DL (74-106) 359 MG/DL (74-106) Albumin 2.7 GM/DL (3.4-5.0) 2.5 GM/DL (3.4-5.0) Sodium Level 128 MEQ/L (136-145) 131 MEQ/L (136-145) Chloride Level 92 MEQ/L (98-107) 94 MEQ/L (98-107) Estimat Glomerular Filtration Rate 50 ML/MIN (>89) 42 ML/MIN (>89) Troponin I LESS THAN 0.02 NG/ML LESS THAN 0.02 NG/ML LESS THAN 0.02 NG/ML B-Type Natriuretic Peptide 169 PG/ML (0-100) Mean Corpuscular Hemoglobin 26.9 PG (27.0-34.0) Monocytes # (Auto) 1.1 TH/MM3 (0-0.9) Calcium Level 8.4 MG/DL (8.5-10.1) Aspartate Amino Transf (AST/SGOT) 12 U/L (15-37) Hemoglobin A1c 12.6 % (4.3-6.0) Urine Protein 30 mg/dL (NEG-TRACE) Test 08/10/17 05:22 Red Blood Count 3.49 MIL/MM3 (4.00-5.30) Hemoglobin 9.7 GM/DL (11.6-15.3) Hematocrit 29.1 % (35.0-46.0) Blood Urea Nitrogen 22 MG/DL (7-18) Creatinine 1.22 MG/DL (0.50-1.00) Random Glucose 215 MG/DL (74-106) Estimat Glomerular Filtration Rate 47 ML/MIN (>89) Imaging Last Impressions Chest X-Ray 08/08/17 1850 Signed Impressions: Service Date/Time: Tuesday, August 08, 2017 19:00 - CONCLUSION: No acute disease. Aleksander Katz MD PE at Discharge GENERAL: Well-nourished, well-developed middle aged female patient in [facility]. Lying flat in bed. SKIN: Warm and dry. No rash. HEENT: Normocephalic. Atraumatic.Pupils equal and round. Mucous membranes pink and moist. NECK: Supple. Trachea midline. CARDIOVASCULAR: Regular rate and rhythm. S1, S2 noted. No murmur appreciated. RESPIRATORY: No accessory muscle use. Clear to auscultation. Breath sounds equal bilaterally. GASTROINTESTINAL: Abdomen soft, non-tender, nondistended. Normoactive bowel sounds x4. MUSCULOSKELETAL: No obvious deformities. Trace bilateral lower extremity edema. NEUROLOGICAL: Awake and alert. No obvious cranial nerve deficits. Motor grossly within normal limits. Normal speech. PSYCHIATRIC: Appropriate mood and affect; insight and judgment normal. Hospital Course 47-year-old female with a PMH of HTN, Hyperlipidemia, DM, Sleep Apnea and CAD s/ p CABG who presented to the ER w/ c/o SOB and lower extremity edema x2 days. Denies h/o CHF, not currently on diuretic therapy. Fluid Overload: c/o bilateral lower extremity edema, no reported h/o CHF, BNP 169, CXR w/ no acute findings. Recent admit to [facility] s/p Nuclear Stress 08/04/17 negative for ischemia, EF 48%. Repeat echo 08/11 with systolic function lower limits of normal with EF 50%. Given Lasix 40 mg IV BID, patient with significant diuresis. Monitored I/O and daily weights, patient lost 5+kg throughout admission. Serial cardiac enzymes negative x3. Pt advised on CHF education, reduce salt intake, monitor weights, fluid restrictions, etc. Much improved. Prescribed lasix at discharge. Continued SUMI, BB. Dyspnea: Likely secondary to non-compliance w/ CPAP and CHF. Reports orthopnea and "anxiety", Ativan prn, CPAP at night. Much improved with diuresis. Renal Insufficiency: Creatinine 1.16, previously 1.25 on 08/03/17. Monitor I/O, caution w/ diuretics. BMP stable, repeat Cr 1.22. Stable. Repeat BMP in 2-3 days as outpatient. DM: Uncontrolled. Non-compliant w/ diabetic diet. Hgb A1c 12.6. Sliding scale w/ Accu-checks, resume home Glipizide, added Levemir 15 units SQ BID. Consult brazer crawler torch, appreciate assistance. Patient very fearful she will be unable to afford Levemir and Novolog, therefore brazer crawler torch suggested 70/30 at discharge. Blood glucose improved to the 200s however still now well controlled. Will discharge on Novolin 70/30 20u bid. Case management consulted to assist with medications. HTN: BP 180's while in ER, will monitor, resume home Metoprolol, held Lisinopril in light of renal insufficiency however will restart upon discharge. BP much improved. Pt Condition on Discharge: Stable Discharge Disposition: Discharge Home Discharge Time: > 30 minutes Discharge Instructions DIET: Follow Instructions for: Heart Healthy Diet, Diabetic Diet Activities you can perform: Regular-No Restrictions Follow up Referrals: Cardiology - 1 Week @ [facility] PCP Follow-up - 1 Week with Diane Rodriguez Do New Orders: BASIC METABOLIC PROF - 2-3 Days New Medications: Blood Glucose Monitoring W/Device (Glucocom Blood Glucose Mo W/Device) 1 Kit Kit KIT .XX DIRECTED for Blood Sugar Management, #1 Furosemide (Lasix) 40 Mg Tab 40 MG PO BID for fluid overload, #35 TAB 0 Refills Take lasix 40mg twice a day x1week, Then continue taking lasix 40mg once a day. Glucocom Test Strips (Glucocom Test Strips) 1 Hyacinth Hyacinth EA .XX DIRECTED for Blood Sugar Management, #1 Insulin Human Isophane-Regular 70-30 Inj (Novolin 70-30 Inj) 1,000 Unit/10 Ml Vial 20 UNITS SQ BIDAC for Blood Sugar Management for 30 Days, #60 INJECTION 0 Refills Insulin Syringe/U-100/31G X 5/16" 1 ml (Insulin Syringe/U-100/31G X 5/16" 1 ml) 31 Gauge X 5/16" Mis EA .XX DIRECTED for Blood Sugar Management, #1 0 Refills Lancets (Lancets) 1 Mis Mis EA .XX DIRECTED for Blood Sugar Management, #1 0 Refills Potassium Chloride Microencaps (Potassium Chloride Microencaps) 20 Meq Tab 20 MEQ PO DAILY for Electrolyte Replacement, #30 TAB Continued Medications: Aspirin (Aspirin) 325 Mg Tab 325 MG PO DAILY, #30 TAB 0 Refills Gabapentin (Gabapentin) 300 Mg Cap 300 MG PO BID, #60 CAP 0 Refills Glipizide (Glipizide) 5 Mg Tab 10 MG PO BIDAC for Blood Sugar Management, #60 TAB 0 Refills Take 30 minutes before a meal Lisinopril (Lisinopril) 2.5 Mg Tab 2.5 MG PO DAILY, #30 TAB 0 Refills Lurasidone (Latuda) 80 Mg Tab 80 MG PO HS, #30 TAB 0 Refills Metoprolol Tartrate (Metoprolol Tartrate) 25 Mg Tab 25 MG PO BID, #60 TAB 0 Refills Pravastatin (Pravastatin) 40 Mg Tab 40 MG PO HS for Cholesterol Management, #30 TAB 0 Refills Sitagliptin-Metformin (Janumet) 50-1,000 Mg Tab 1 TAB PO BID for Blood Sugar Management, #60 TAB 0 Refills Mary Jo Montoya PA-C Aug 11, 2017 2:37 pm
[2017-08-11 14:46] VITALS: BP 145/67; PULSE 65; RESP 18; TEMP 98; O2SAT 98
[2017-08-12] MEDS ORDERED: VIST25CA PO (21:12)
== END 2017-08-11 17:09 | disposition home or self-care (01) ==
LOC: NEPE 16:31 → NEDA 20:38 → NEPHCDU 23:37
PROVIDERS: ADMIT Hospitalist; ATTEND Hospitalist
DX: E87.70 Fluid overload, unspecified (principal); R06.00 Dyspnea, unspecified; I25.10 Atherosclerotic heart disease of native coronary artery without angina pectoris; I11.0 Hypertensive heart disease with heart failure; I50.9 Heart failure, unspecified; N28.9 Disorder of kidney and ureter, unspecified; E11.65 Type 2 diabetes mellitus with hyperglycemia; E87.1 Hypo-osmolality and hyponatremia; F41.9 Anxiety disorder, unspecified; G47.30 Sleep apnea, unspecified; E66.01 Morbid (severe) obesity due to excess calories; Z95.1 Presence of aortocoronary bypass graft; Z87.891 Personal history of nicotine dependence; Z91.19 Patient's noncompliance with other medical treatment and regimen; Z91.11 Patient's noncompliance with dietary regimen
CPT/HCPCS: 71045; 80048; 80053; 81001; 82948; 83036; 83880; 84484; 85025; 93005; 93306; 96372; 96374; 96375; 96376; 99285; G0378; J1644; J1815; J1940; J2060

== ENCOUNTER 2017-08-12 18:44 | Emergency (ER) | payer SELFPAY ==
[~2017-08-12] VITALS: Ht 165.1 cm; Wt 108.0 kg
[~2017-08-12 18:44] MED LIST changes: +FURO1TAB60 PO; +GLUCKIT15; +GLUCTES12; +INSU1MIS15; +LANCETS1 MI1; +NOVO7030P2 SQ; +POTA20TA5 PO
[2017-08-12 18:50] VITALS: BP 153/69; PULSE 87; RESP 17; TEMP 98; O2SAT 98
--- NOTE | 2017-08-12 20:02 | PD ---
HPI Chief Complaint: Respiratory Symptoms Time Seen by Provider: 19:31 Travel History International Travel<30 days: No Contact w/Intl Traveler<30days: No Traveled to known affect area: No History of Present Illness HPI The patient was seen and examined in the presence of the nurse. This patient was discharged from the hospital yesterday. She had fairly extensive workup and has had stress testing a days ago. She is not having chest pain. She is very anxious. She breaks into tears while I talked to her. She has been out of her Effexor for some time. She denies feeling suicidal. She admits to feeling very anxious. Today she felt like she was very warm and may have had a hot flash. She reports compliance with her medications including diuretic. She reports that she gets short of breath shortly after eating solid food. She also gets short of breath when lying flat. She is not having any acute pain. Symptom severity is moderate PFSH Past Medical History Arthritis: Yes Blood Disorders: No Anxiety: Yes Depression: No Heart Rhythm Problems: No Cancer: No Cardiac Catheterization: Yes (x2) Cardiovascular Problems: Yes High Cholesterol: Yes Chest Pain: Yes Congestive Heart Failure: Yes Cerebrovascular Accident: No Coronary Artery Disease: Yes Diabetes: Yes Patient Takes Glucophage: Yes Diminished Hearing: No Endocrine: Yes Gastrointestinal Disorders: Yes GERD: Yes Genitourinary: Yes Headaches: Yes Hiatal Hernia: No Heparin Induced Thrombocytopen: No Hypertension: Yes Immune Disorder: No Implanted Vascular Access Dvce: Yes Kidney Stones: Yes Musculoskeletal: Yes Neurologic: No Psychiatric: Yes (PTSD) Reproductive: No Respiratory: Yes (CPAP HS) Migraines: No Myocardial Infarction: Yes Sleep Apnea: Yes Thyroid Disease: No Triglycerides - High: Yes Ulcer: No Tetanus Vaccination: < 5 Years Influenza Vaccination: No ?: Not : 3 Para: 2 Miscarriage: 1 Tubal Ligation: Yes (1991) Past Surgical History Body Medical Devices: "STENT IN MY HEART" Cardiac Surgery: Yes (two heart caths) Coronary Artery Bypass Graft: Yes (CABG X 3 IN 2012) Eye Surgery: Yes (LASER SURGERY ON EYES) Gynecologic Surgery: Yes (tubal ligation) Other Surgery: Yes (LASER SURGERY ON EYES) Family History Family Myocardial Infarction: Yes Social History Alcohol Use: Yes (RARE) Tobacco Use: No (QUIT APR 2013) Substance Use: No Allergies-Medications (Allergen,Severity, Reaction): Coded Allergies: escitalopram (Verified Allergy, Severe, 08/08/17) pt " states it makes me rip my skin out" morphine (Verified Allergy, Severe, "MAKES ME WANT TO RIP MY SKIN OFF", 08/08/17) promethazine (Verified Allergy, Severe, "MAKES ME WANT TO RIP MY SKIN OFF ", 08/08/17) Reported Meds & Prescriptions Reported Meds & Active Scripts Active Novolin 70-30 Inj (Insulin Human Isoph/Insulin Regular) 1,000 Unit/10 Ml Vial 20 Units SQ BIDAC 30 Days Potassium Chloride Microencaps 20 Meq Tab 20 Meq PO DAILY Lasix (Furosemide) 40 Mg Tab 40 Mg PO BID Take lasix 40mg twice a day x1week, Then continue taking lasix 40mg once a day. Glucocom Blood Glucose Mo W/Device (Device) 1 Kit Kit Kit .XX DIRECTED Glucocom Test Strips (Blood Glucose Test Strips) 1 Hyacinth Hyacinth Ea .XX DIRECTED Lancets 1 Mis Mis Ea .XX DIRECTED Insulin Syringe/U-100/31G X 5/16" 1 ml 31 Gauge X 5/16" Mis Ea .XX DIRECTED Reported Gabapentin 300 Mg Cap 300 Mg PO BID Latuda (Lurasidone) 80 Mg Tab 80 Mg PO HS Glipizide 5 Mg Tab 10 Mg PO BIDAC Take 30 minutes before a meal Janumet (Sitagliptin-Metformin) 50-1,000 Mg Tab 1 Tab PO BID Pravastatin 40 Mg Tab 40 Mg PO HS Metoprolol Tartrate 25 Mg Tab 25 Mg PO BID Lisinopril 2.5 Mg Tab 2.5 Mg PO DAILY Aspirin 325 Mg Tab 325 Mg PO DAILY Review of Systems General / Constitutional: No: Fever Eyes: No: Visual changes HENT: No: Headaches Cardiovascular: No: Chest Pain or Discomfort Respiratory: Positive: Shortness of Breath, Orthopnea Gastrointestinal: No: Abdominal Pain Genitourinary: No: Dysuria Musculoskeletal: No: Pain Skin: No Rash Neurologic: No: Weakness Psychiatric: Positive: Anxiety, No: Depression Endocrine: No: Polydipsia Hematologic/Lymphatic: No: Easy Bruising Physical Exam Narrative GENERAL: Well-nourished, well-developed patient in no apparent distress. SKIN: Focused skin assessment reveals no rash and nodules. Skin is Warm and dry. HEAD: Atraumatic. Normocephalic. EYES: Pupils equal and round. No scleral icterus. No injection or drainage. ENT: No nasal bleeding or discharge. Mucous membranes pink and moist. NECK: Trachea midline. No JVD. CARDIOVASCULAR: Regular rate and rhythm. No murmur appreciated. RESPIRATORY: No accessory muscle use. Clear to auscultation. Breath sounds equal bilaterally. GASTROINTESTINAL: Abdomen soft, non-tender, nondistended. Hepatic and splenic margins not palpable. MUSCULOSKELETAL: No obvious deformities. No clubbing. No cyanosis. No edema. NEUROLOGICAL: Awake and alert. No obvious cranial nerve deficits. Motor grossly within normal limits. Normal speech. PSYCHIATRIC: Anxious mood and affect; insight and judgment normal. Data Data Last Documented VS Vital Signs Date Time Temp Pulse Resp B/P (MAP) Pulse Ox O2 Delivery O2 Flow Rate FiO2 08/12/17 18:50 98.0 87 17 153/69 (97) 98 MDM Medical Decision Making Medical Screen Exam Complete: Yes Emergency Medical Condition: Yes Medical Record Reviewed: Yes Differential Diagnosis CHF, anxiety, anasarca Narrative Course I have reviewed the patient's electronic medical record. Reviewed her discharge summary from yesterday. She had a normal chest x-ray Patient looks clinically well. She is clearly anxious and tearful. That may be contributing. No clinical suspicion of ACS or CHF. She has clear lungs with good saturations and recent normal chest x-ray. She has no pitting edema of the legs. She is on diuretic. She gets hot flashes and dyspnea shortly after eating. We discussed further workup but I do not think is emergently indicated. She wants some kind of anxiety medicine. I wrote her a short-term prescription for Vistaril. I warned her about sedation I believe she is stable for outpatient follow-up. Should she worsen she is advised to return. Diagnosis Primary Impression: Anxiety Additional Impressions: Shortness of breath GERD (gastroesophageal reflux disease) Qualified Codes: K21.9 - Gastro-esophageal reflux disease without esophagitis Additional Instructions: The patient was advised to follow up with their physician and return if they worsen. The patient was warned about potential sedation for the medications they will receive on prescription. Med/Other Pt SpecificInfo: Prescription(s) given Disposition: DISCHARGE HOME Condition: Stable Victorino Majano MD Aug 12, 2017 20:02
[2017-08-12] MEDS ORDERED: VIST25CA PO (21:12)
== END 2017-08-12 21:27 | disposition home or self-care (01) ==
LOC: NEPD 18:44
DX: F41.9 Anxiety disorder, unspecified (principal); R06.02 Shortness of breath; K21.9 Gastro-esophageal reflux disease without esophagitis; M19.90 Unspecified osteoarthritis, unspecified site; E78.00 Pure hypercholesterolemia, unspecified; I11.0 Hypertensive heart disease with heart failure; I50.9 Heart failure, unspecified; E11.9 Type 2 diabetes mellitus without complications; F43.10 Post-traumatic stress disorder, unspecified
CPT/HCPCS: 99283